=== PATIENT | female | born 1970 | race Caucasian/White ===

== ENCOUNTER 2020-12-05 09:13 | Emergency (ER) | payer SELFPAY ==
[2020-12-05 09:16] VITALS: BP 161/89; PULSE 71; RESP 16; TEMP 36.6; O2SAT 97; BMI 28.1
--- NOTE | 2020-12-05 09:39 | ED.SKABFB ---
HPI - Skin/Abscess/Foreign Bdy General Chief complaint: Skin/Abscess/Foreign Body Stated complaint: sonia on both legs Time Seen by Provider: 12/05/20 09:31 Source: patient Mode of arrival: ambulatory History of Present Illness HPI narrative: 50-year-old female with a past medical history of psoriasis presenting to the ED complaining of psoriasis flare to bilateral lower extremities. Reports has been dealing with this for greater than 3 years, now running into insurance issue with medications due to going through a break-up, previously on Tacrolimus intermittently, and using OTC corticosteroids with some relief. Reports intermittent pusing/drainage from wounds, none at present. Denies fever, chills, pus drainage now, injury MD complaint: rash Related Data Previous Rx's Medication Instructions Recorded prednisone See Rx Instructions .ROUTE 12/05/20 .COMPLEX #36 tab triamcinolone acetonide 1 appl TOPICAL BID #80 g 12/05/20 Allergies Allergy/AdvReac Type Severity Reaction Status Date / Time quetiapine [From SEROQUEL] Allergy Severe ANAPHYLAXIS Unverified 06/22/20 14:52 Review of Systems Review of Systems: Constitutional: No Fever, No Chills Musculoskeletal: No joint pain, No Joint Swelling Skin: + Skin Lesions, +rash Yes all other systems are reviewed and are negative [facility] Past Medical History Attestation statement: The following information was validated with the patient. Social History Social History Alcohol intake: current Alcohol intake frequency: a few times a week Smoking Status: Never smoker Use of substances other than those prescribed or required for medical reasons: No Advance Directives: No Advance Directives Information Provided: No Physical Exam Vital Signs: Vital Signs: Last Vital Signs Temp 97.9 F 12/05/20 09:16 Pulse 71 12/05/20 09:16 Resp 16 12/05/20 09:16 BP 161/89 H 12/05/20 09:16 Pulse Ox 97 12/05/20 09:16 Body Mass Index 28.1 Const: General: cooperative, healthy appearing, comfortable and no acute distress Orientation/consciousness: patient oriented x3 Limitations: no limitations HENMT: Head: Yes normal to inspection Ears: hearing grossly normal bilaterally General nose exam: Normal external nose present Face and sinus: Yes normal facial exam Eyes: General: appearance normal, both eyes and all related structures EOM: EOMs intact bilaterally Neck: Neck: Yes normal visual inspection Resp: Effort & Inspection: normal respiratory effort Cardio: Rate: regular rate Skin: Other: + plaque-like rash noted to bilateral lower extremities with open picked wounds. No surrounding cellulitis. No fluctuance/induration. No streaking. Neuro: General: patient oriented x3 Gait exam (Neuro): Normal gait present Extrem: General: Yes normal to inspection MDM - Skin/Abscess/Foreign Bdy Medical Records Attestation: I reviewed the patient's medical records. Discharge Plan Discharge Clinical Impression: Psoriasis Patient Disposition: Home, Self-Care Instructions: Psoriasis (ED) Additional Instructions: Avoid scratching her psoriasis. Triamcinolone is a topical steroid, apply to your psoriasis, do not apply tear face, hands, feet, or genital area as may discolor skin. Prednisone as an oral steroid, take as prescribed. In addition use lotions to keep area moist. Follow up with a institutional nutrition consultant. If area begins to look infected, has pus drainage, or you fever return to the ED. Prescriptions: New triamcinolone acetonide 0.025 % ointment 1 appl topical BID Qty: 80 RF: 0 prednisone 5 mg tablet See Rx Instructions .ROUTE .COMPLEX Qty: 36 RF: 0 Referrals: Pam Acharya PA [Physician Decorative Engraver Apprentice] - 2 days Kevin Weems MD [Physician] - 2 days Cole Taylor MD [Physician] - 2 days Stand Alone Forms: Work/School Release
== END 2020-12-05 11:01 | disposition home or self-care (01) ==
PROVIDERS: Emergency Provider Emergency Medicine; PCP Internal Medicine
DX: L40.9 Psoriasis, unspecified (principal)
CPT/HCPCS: 99283; 99284

== ENCOUNTER 2022-11-25 20:24 | Emergency (ER) | payer OTHER, MEDICAID, SELFPAY ==
--- NOTE | ~2022-11-25 | CT_ITS ---
EXAMINATION: CT HEAD WITHOUT CONTRAST CT CERVICAL SPINE WITHOUT CONTRAST CLINICAL INFORMATION: Occipital headache. Fall. Neck pain. COMPARISON: None. TECHNIQUE: Imaging was performed from the skull base to vertex without intravenous administration of contrast. In addition, helical noncontrast CT imaging was acquired through the cervical spine and source images were reviewed along with axial reconstructions and sagittal and coronal MPRs. [This CT examination was performed using dose optimization techniques as appropriate, variously including the following: *Automated exposure control *Adjustment of mA and/or kV according to patient size (this includes techniques or standardized protocols for targeted exams where dose is matched to indication/reason for exam; i.e. extremities or head) *Use of iterative reconstruction technique] DLP: 937 mGy-cm FINDINGS: HEAD: No intracranial mass, hemorrhage, or midline shift is visualized. The ventricles and sulci are proportional. No extra-axial collections are identified. The paranasal sinuses and mastoid air cells are well aerated. CERVICAL SPINE: There is no evidence of acute cervical spine fracture. Vertebral bodies remain normal in height. Cervical vertebrae have normal alignment. Cervical disc heights are normal. The facet joints are normal. No pre- or paravertebral soft tissue abnormality is identified. Limited assessment of the lung apices is unremarkable. CT/CT head/brain wo IV con IMPRESSION: 1. No acute intracranial pathology. 2. No CT evidence of acute cervical spine fracture or traumatic subluxation
--- NOTE | ~2022-11-25 | CT_ITS ---
EXAMINATION: CT HEAD WITHOUT CONTRAST CT CERVICAL SPINE WITHOUT CONTRAST CLINICAL INFORMATION: Occipital headache. Fall. Neck pain. COMPARISON: None. TECHNIQUE: Imaging was performed from the skull base to vertex without intravenous administration of contrast. In addition, helical noncontrast CT imaging was acquired through the cervical spine and source images were reviewed along with axial reconstructions and sagittal and coronal MPRs. [This CT examination was performed using dose optimization techniques as appropriate, variously including the following: *Automated exposure control *Adjustment of mA and/or kV according to patient size (this includes techniques or standardized protocols for targeted exams where dose is matched to indication/reason for exam; i.e. extremities or head) *Use of iterative reconstruction technique] DLP: 937 mGy-cm FINDINGS: HEAD: No intracranial mass, hemorrhage, or midline shift is visualized. The ventricles and sulci are proportional. No extra-axial collections are identified. The paranasal sinuses and mastoid air cells are well aerated. CERVICAL SPINE: There is no evidence of acute cervical spine fracture. Vertebral bodies remain normal in height. Cervical vertebrae have normal alignment. Cervical disc heights are normal. The facet joints are normal. No pre- or paravertebral soft tissue abnormality is identified. Limited assessment of the lung apices is unremarkable. CT/CT cervical spine wo IV con IMPRESSION: 1. No acute intracranial pathology. 2. No CT evidence of acute cervical spine fracture or traumatic subluxation
--- NOTE | 2022-11-25 20:43 | ED.FALL ---
HPI - Fall General Chief Complaint: Fall <DASH Piedra - Last Filed: 11/25/22 20:49> Stated Complaint: fell/ head neck back trauma <DASH Piedra - Last Filed: 11/25/22 20:49> Time Seen by Provider: 11/25/22 22:06 <DASH Piedra - Last Filed: 11/25/22 20:49> Source: patient <Dior Duran MD - Last Filed: 11/25/22 22:45> Mode of arrival: ambulatory <Dior Duran MD - Last Filed: 11/25/22 22:45> Limitations: no limitations <Dior Duran MD - Last Filed: 11/25/22 22:45> History of Present Illness HPI Narrative: 52-year-old female came in for evaluation of head injury. Patient was taking shower slipped and fell backward hitting her head, causing small laceration to the scalp and mild bleeding 2 days ago, patient did not seek medical attention then, patient came in today for evaluation of feeling dizzy and blurry vision with headache, soreness at the laceration side of the occipital area, complaining of neck pain, no weakness or numbness. <Dior Duran MD - Last Filed: 11/25/22 22:45> Related Data Home Medications: Previous Rx's Medication Instructions Recorded prednisone 5 mg tablet See Rx Instructions PO .COMPLEX 12/05/20 #36 tabs triamcinolone acetonide 0.025 % 1 appl topical BID #80 grams 12/05/20 topical ointment <DASH iPedra - Last Filed: 11/25/22 20:49> Allergies/Adverse Reactions: Allergies Allergy/AdvReac Type Severity Reaction Status Date / Time quetiapine [From SEROQUEL] Allergy Severe ANAPHYLAXIS Verified 11/25/22 20:49 <DASH Piedra - Last Filed: 11/25/22 20:49> Review of Systems Review of Systems: All other systems are reviewed and are negative Constitutional: Reports as per HPI and Reports no additional constitutional complaints Eyes: Reports as per HPI and Reports no additional eye complaints Reports system reviewed and no additional complaints, except as documented Cardiovascular: Reports as per HPI and Reports no additional cardiovascular complaints Respiratory: Reports as per HPI and Reports no additional respiratory complaints Gastrointestinal: Reports as per HPI and Reports no additional gastrointestinal complaints Genitourinary: Reports no additional female genitourinary complaints Musculoskeletal: Reports no additional musculoskeletal complaints Skin/Breast: Reports system reviewed and no additional complaints, except as docu Psychiatric: Reports no additional psychiatric complaints Endocrine: Reports no additional endocrine complaints Hematologic/Lymphatic: Reports no additional hematologic/lymphatic complaints Allergic/Immunologic: Reports no additional allergic/immunologic complaints Reports system reviewed and no additional complaints, except as documented and Reports Abnormal speech present <Dior Duran MD - Last Filed: 11/25/22 22:45> [facility] Social History Social History: Social History Alcohol intake: current Alcohol intake frequency: a few times a week Advance Directives: No Advance Directives Information Provided: Yes <DASH Piedra - Last Filed: 11/25/22 20:49> Physical Exam Vital Signs: Vital Signs: Last Vital Signs Temp 98.0 F 11/25/22 20:44 Pulse 70 11/25/22 20:44 Resp 16 11/25/22 20:44 BP 157/71 H 11/25/22 20:44 Pulse Ox 99 11/25/22 20:44 O2 Del Method 11/25/22 20:44 BMI result Body Mass Index 28.7 <DASH Piedra - Last Filed: 11/25/22 20:49> Vital Signs: Last Vital Signs Temp 98.0 F 11/25/22 20:44 Pulse 70 11/25/22 20:44 Resp 16 11/25/22 20:44 BP 157/71 H 11/25/22 20:44 Pulse Ox 99 11/25/22 20:44 O2 Del Method 11/25/22 20:44 BMI result Body Mass Index 28.7 Vital signs have been reviewed as appeared to be correct. Blood pressure normal. Heart rate normal. Respiration rate normal. Temperature normal. Oxygen saturation normal. <Dior Duran MD - Last Filed: 11/25/22 22:45> Appearance: Alert. Oriented X3. No acute distress. Head: Normal external exam. Normocephalic. Atraumatic. No Suresh signs noted. No raccoon eyes noted, healing old scar on the occipital area of the scalp. No active bleeding. Eyes: PERRLA. EOMI. Conjunctiva and sclera normal. Eyelids normal. ENT: TM's Normal. Pharynx normal. Uvula midline. Moist mucous membranes. No trismus noted. No drooling noted. No muffled voice noted. Neck: Normal inspection. Neck supple. FROM. No adenopathy. Thyroid Normal. No meningeal signs. No neck mass noted. CVS: Normal heart rate and rhythm. Heart sound normal. No murmurs noted. Pulses normal throughout. Respiratory: No respiratory distress. Painless inspiration. Breath sounds normal. No wheezes/rales/rhonchi noted. Chest nontender. No accessory muscle usage noted or decreased air movement noted. Abdomen: Soft and nontender. Bowel sounds normal in all 4 quadrants. No distention noted. No organomegaly noted. No visible injury noted. Back: No CVA tenderness. Full range of motion noted. Skin: Skin warm and dry. Normal skin color. Normal skin turgor. No rashes/lesions/lacerations noted. Extremities: No lower extremity edema. Extremities exhibit normal range of motion. Extremities nontender. Neuro: Oriented X 3. GCS of 15 Cranial nerve exam: II-XII are grossly intact No motor deficit. No sensory deficit. Reflexes normal. <Dior Duran MD - Last Filed: 11/25/22 22:45> Course Course Course Narrative: RME - 52 yo female with hx kidney stones, PTSD w/ disassociation who presents to the ER for evaluation of dizziness and a fall that occurred 2 days ago. States she cracked her head open, had some bleeding. Was not seen at the time. Has ongoing dizziness, blurred vision and occipital headache along with neck pain. Reports 4-5 falls in the last 6 months. Has been dizzy for one month, worse in the last 1 week. Also memory lapses - not remembering what side of the road to drive on, where she parked her car. Steady gait into triage. Small lac on the occipital area with some swelling. midline neck tenderness. Will get CT head and cervical spine along w/ basic labs for further evaluation. <DASH Piedra - Last Filed: 11/25/22 20:49> Reevaluation(s) Reevaluation #1: 52-year-old female status post mechanical fall 2 days ago causing head concussion patient presented with post concussion syndrome, normal neuro exam, GCS of 15, CT scan is normal, cervical CT is unremarkable for fracture. <Dior Duran MD - Last Filed: 11/25/22 22:45> Medical Decision Making Differential Diagnosis Differential Diagnoses: The differential diagnosis associated with the presentation includes (Intracranial bleeding, postconcussion syndrome, cervical spine injury, neurological deficit.) <Dior Duran MD - Last Filed: 11/25/22 22:45> Lab Data Result Diagrams: 11/25/22 22:25 11/25/22 22:25 <DASH Piedra - Last Filed: 11/25/22 20:49> Independent Interpretation I performed an independent interpretation of an: CT Scan (Head/C-spine CT: No acute pathology.) <Dior Duran MD - Last Filed: 11/25/22 22:45> Radiology Impression Discussion of test interpretation with radiology: I have reviewed the radiologist's reading. <Dior Duran MD - Last Filed: 11/25/22 22:45> Discharge Plan Discharge Clinical Impression: Post-concussion syndrome <DASH Piedra - Last Filed: 11/25/22 20:49> Patient Disposition: Home, Self-Care <DASH Piedra - Last Filed: 11/25/22 20:49> Instructions: Post Concussion Syndrome (ED) <DASH Piedra - Last Filed: 11/25/22 20:49> Additional Instructions: Avoid long time using computer, TV, and phones. Tried sleep early in the quiet dark room. Use Tylenol [id number] for mild headache. Drink plenty of fluids. <DASH Piedra - Last Filed: 11/25/22 20:49> Prescriptions: No Action triamcinolone acetonide 0.025 % ointment 1 appl topical BID Qty: 80 0RF prednisone 5 mg tablet See Rx Instructions .ROUTE .COMPLEX Qty: 36 0RF Rx Instructions: prednisone 5 mg: take 8 tablets (40 mg) on Day 1; 7 tablets (35 mg) on Day 2; then decrease by 1 tablet every day until finished <DASH Piedra - Last Filed: 11/25/22 20:49> Stand Alone Forms: Work/School Release <DASH Piedra - Last Filed: 11/25/22 20:49>
[2022-11-25 20:44] VITALS: BP 157/71; PULSE 70; RESP 16; TEMP 36.7; O2SAT 99; BMI 28.7
[2022-11-25 22:36] LABS: MANUAL DIFF FLAG NO
[2022-11-25 22:38] LABS: Basophils Percent Auto 0.3 % (0-2); Eosinophils Absolute Auto 0.1 X10*3/uL (0.0-0.4); Eosinophils Percent Auto 1.9 % (0-4); Hemoglobin 11.7 g/dl (12.0-16.0); Imm Gran Abs Auto 0.02 X10*3/uL (0.00-0.03); Imm Gran Pct Auto 0.3 % (0.0-0.4); Lymphocytes Absolute Auto 2.3 X10*3/uL (1.2-4.9); Lymphocytes Percent Auto 35.7 % (20-40); Mean Corpuscular HGB Conc 33.4 g/dl (31.0-35.0); Mean Corpuscular Hemoglobin 30.1 pg (27.0-33.0); Monocytes Absolute Auto 0.7 X10*3/uL (0.1-1.2); Monocytes Percent Auto 10.8 % (2-11); Neutrophils Absolute Auto 3.3 x10*3/uL (2.0-8.3); Platelet Count 210 X10*3/uL (160-400); Red Blood Count 3.89 X10*6/uL (4.20-5.50); Red Cell Distribution Width 12.8 % (11.0-16.0); White Blood Count 6.4 X10*3/uL (4.8-10.8)
--- OUTSIDE RECORDS SUMMARY | 2022-11-25 22:43 | XMS_ITS | Continuity of Care Document ---
:1970 Author Organization [facility] Adult Address [address] [place] [address]- Care Team Providers Name Role Phone Nini Charlene ALEXANDRE Primary Care Physician Encounter [facility] [place] Date(s): 12/07/21 - 01/11/22 [facility] [address] [place] [address]- Attending Physician: Not on Staff, Attending MD Allergies, Adverse Reactions, Alerts Substance Reaction Severity Status Seroquel Active Immunizations Given and Recorded Vaccine Date Status Refusal Reason SARS-CoV-2 (COVID-19) mRNA BNT-162b2 vac 12/17/20 Recorde d SARS-CoV-2 (COVID-19) mRNA BNT-162b2 vac 11/21/20 Recorde d influenza virus vaccine, inactivated 07/06/18 Recorded influenza virus vaccine, inactivated 07/21/17 Recorded influenza virus vaccine, inactivated 07/13/15 Recorded influenza virus vaccine, inactivated1 07/06/13 Recorded influenza virus vaccine, inactivated2 06/29/10 Given tetanus-diphtheria toxoids (Td) 05/11/18 Given Influenza Virus Vaccine (oldterm)3 07/06/16 Given Influenza Virus Vaccine (oldterm)4 06/21/09 Given Measles/Mumps/Rubella Virus Vaccine 10/07/13 Given Measles/Mumps/Rubella Virus Vaccine 09/17/10 Given FluLaval (oldterm)5 05/19/12 Given FluLaval (oldterm) 06/29/10 Given Tet/Diphth/Acel, Pertussis (oldterm) 03/18/08 Given Tetanus Toxoid Vaccine (oldterm) 10/06/97 Given Not Given Vaccine Date Status Refusal Reason influenza virus vaccine, inactivated 07/05/18 Not Given Patient Refuses pneumococcal 23-valent vaccine 07/05/18 Not Given P atient Refuses 1Location History: [facility]2Result Comment: [id number] Note: got at [id number] Note: [id number] Note: [facility]. employer Medications Benadryl Tablet = 25 mg, By Mouth, Daily at bedtime, 0 Refills, Maintenance, 06/16/15 15:31:35 Start Date: 06/16/15 Status: Ordereddoxepin 10 mg oral capsule 0 Refills, Maintenance, 12/23/21 21:05:00 EDT, Partial fill upon patient request if the prescriptionis for a schedule II opioid drug. Start Date: 12/23/21 Status: Orderedvenlafaxine 150 mg oral capsule, extended release 1 capsule, By Mouth, Daily, # 90 capsule, 0 Refills, 10/11/21 21:26:00 EST, [id number], 160,cm, 07/10/21 8:55:00 EDT, Height, 72.8, kg, 03/13/21 17:00:00 EDT, Dry Weight Start Date: 10/11/21 Status: Ordered Problem List Condition Effective Dates Status Health Status Informant Alcohol abuse(Confirmed) Active Bilateral carpal tunnel Active syndrome(Confirmed)1 Chronic constipation(Confirmed) Active Chronic dermatitis(Confirmed) Active Chronic rhinitis(Confirmed) Active Bilateral ovarian cysts(Confirmed) Active H/O syncope(Confirmed)2, 3 Active H/O dizziness(Confirmed) Active Insomnia(Confirmed) Active Depression, major(Confirmed)4, 5, 6, Active 7, 8 Nephrolithiasis(Confirmed)9 Active Lower extremity pain(Confirmed) Active Patent foramen ovale(Confirmed) Active cortisone pwywhbsap7dkkezzxo tilt table, fludrocortisone started per eprjshayqf1ztuw coital; referred cardiologly for tilt table,other investigations if [id number];115in therapy;not bipolar per vzzxmpicp9doglcpsg mood ftlcdfvmbsgmqu5mcia disorders questionnare;8seeing mental lpsxud3mlyfybsjppg,Dr carmona Social History Social History Type Response Smoking Status Never smoker entered on: 10/07/13 Sex
--- OUTSIDE RECORDS SUMMARY | 2022-11-25 22:43 | XMS_ITS | Continuity of Care Document ---
:1970 Author Organization [facility] Adult Address [address] [place] [address]- Care Team Providers Name Role Phone Prudencio MEEK, Raimundo Montes Primary Care Physician [place]counter [facility] [place] Date(s): 05/08/20 - 06/07/20 [facility] [address] [place] [address]- [facility] Allergies, Adverse Reactions, Alerts Substance Reaction Severity Status Seroquel Active Immunizations Given and Recorded Vaccine Date Status Refusal Reason influenza virus vaccine, inactivated 07/06/18 Recorded influenza [...] Not Given P atient Refuses 1Location History: [facility]2Result Comment: [id number] Note: got at [id number] Note: [id number] Note: [facility] Medications Benadryl Tablet = 25 mg, By Mouth, Daily at bedtime, 0 Refills, Maintenance, 06/16/15 15:31:35 Start Date: 06/16/15 Status: Orderedbetamethasone topical dipropionate 0.05% ointment 1 application, Topically, 2 times a day, # 45 Gm, 1 Refills, Maintenance, 03/16/20 9:06:00 EDT, Ointment, [facility]/pharmacy #[id number], 1 application Topically 2 times a day, 160, cm, 03/09/20 12:35:00 EDT, Height, 65.9, kg, 07/04/18 1:15:00 EDT, Dry Weight Start Date: 03/16/20 Status: OrderedFlonase 50 mcg/inh nasal spray 2 sprays, Nares, Both, Daily, # 1 each, 11 Refills, Maintenance, 11/28/15 10:07:00, [place], 2 sprays Nares, Both Daily,x30 days Start Date: 11/28/15 Stop Date: 11/22/16 Status: Orderedgabapentin 100 mg oral capsule 200 mg, 2, capsule, By Mouth, 3 times a day, # 180 capsule, Refills 1, Tot. Refills 1, Maintenance, 08/24/19 10:30:07 EST, Route to Pharmacy Electronically, [id number], [facility]/pharmacy #[id number] Start Date: 08/24/19 Status: Orderedprazosin 1 mg oral capsule 1 mg, 1, capsule, By Mouth, Daily at bedtime, # 90 capsule, Refills 0, Tot. Refills 0, Maintenance, 02/15/20 7:19:00 EDT, Route to Pharmacy Electronically, [facility]/pharmacy #[id number], 160, cm, 07/15/19 10:05:00 EDT, Height, 65.9, kg, 07/04/18 1:15:00 EDT, Dry... Start Date: 02/15/20 Status: Orderedtacrolimus 0.1% topical ointment 1 applicator, Topically, 2 times a day, apply sparingly and rub in well, # 30 Gm, 0 Refills, Maintenance, 06/07/20 10:22:00 EDT, Ointment, [facility]/pharmacy #[id number], 1 applicator Topically 2 times a day,Instr:apply sparingly and rub in well, 160, cm, ... Start Date: 06/07/20 Status: Orderedvenlafaxine 150 mg oral capsule, extended release 150 mg, 1, capsule, By Mouth, Daily, # 30 capsule, Refills 1, Tot. Refills 1, Maintenance, 06/06/20 15:13:00 EDT, Route to Pharmacy Electronically, [facility]/pharmacy #[id number], 160, cm, 03/09/20 12:35:00 EDT, Height, 65.9, kg, 07/04/18 1:15:00 EDT, Dry Weight Start Date: 06/06/20 Status: Ordered Problem List Condition Effective Dates Status Health Status Informant Abdominal pain(Confirmed) Active Bilateral carpal tunnel Active syndrome(Confirmed)1 Chronic constipation(Confirmed) Active Chronic rhinitis(Confirmed) Active Bilateral ovarian cysts(Confirmed) Active Acid reflux(Confirmed) Active H/O syncope(Confirmed)2, 3 Active H/O dizziness(Confirmed) Active H/O alcohol abuse(Confirmed) Active Insomnia(Confirmed) Active Nephrolithiasis(Confirmed)4 Active Lower extremity pain(Confirmed) Active Patent foramen ovale(Confirmed) Active cortisone uymqlckhh8qvrkypjj tilt table, fludrocortisone started per hhvdlsndll2xwnk coital; referred cardiologly for tilt table,other investigations if bdatup7lautcdzkizx,Dr carmona Social History Social History Type Response Smoking Status Never smoker entered on: 10/07/13 Sex
--- OUTSIDE RECORDS SUMMARY | 2022-11-25 22:43 | XMS_ITS | Continuity of Care Document ---
:1970 Author Organization [facility] Adult Address [address] [place] [address]- Care Team Providers Name Role Phone Charlene Terrazas NP Primary Care Physician Encounter [facility] [place] Date(s): 12/24/21 - 12/31/21 [facility] [address] [place] [address]- Encounter Diagnosis Alcohol abuse (Discharge Diagnosis) - 12/24/21 Depression, major (Discharge Diagnosis) - 12/24/21 Shortness of breath (Discharge Diagnosis) - 12/24/21 Attending Physician: Not on Staff, Attending MD Referring Physician: Charlene Terrazas NP Allergies, Adverse Reactions, Alerts Substance Reaction Severity [...] Not Given P atient Refuses 1Location History: [facility]2Result Comment: [id number] Note: got at [id number] Note: [id number] Note: [facility]. employer Medications Benadryl Tablet = 25 [...] pain(Confirmed) Active Patent foramen ovale(Confirmed) Active cortisone afczsvjot0lwjiwhdf tilt table, fludrocortisone started per ppxphuywgz5iyuf coital; referred cardiologly for tilt table,other investigations if [id number];115in therapy;not bipolar per koapvhjic7bbtscxwz mood blutguxndjrpsg6mfpm disorders questionnare;8seeing mental vjcmze7tjitaeriztm,Dr carmona Diagnosis Diagnosis Type Effective Dates Health Status Clinical In formant Service Alcohol abuse Discharge 12/24/21 Diagnosis Depression, Discharge 12/24/21 major Diagnosis Shortness of Discharge 12/24/21 breath Diagnosis Social History Social History Type Response Smoking Status Never smoker entered on: 10/07/13 Sex
--- OUTSIDE RECORDS SUMMARY | 2022-11-25 22:43 | XMS_ITS | Continuity of Care Document ---
:[address] [facility] Adult Address [address] [place] [address]- Care Team Providers Name Role Phone Prudencio MEEK, Raimundo Montes Primary Care Physician Encounter [facility] Date(s): 07/05/20 - 08/04/20 [facility] [address] [place] [address]- [facility] Allergies, Adverse Reactions, Alerts Substance Reaction [...] Not Given P atient Refuses 1Location History: [facility]2Result Comment: [id number] Note: got at [id number] Note: [id number] Note: [facility] Medications Benadryl Tablet = 25 mg, By Mouth, Daily at bedtime, 0 Refills, Maintenance, 06/16/15 15:31:35 Start Date: 06/16/15 Status: Orderedbetamethasone topical dipropionate 0.05% ointment 1 application, Topically, 2 times a day, # 45 Gm, 1 Refills, Maintenance, 03/16/20 9:06:00 EDT, Ointment, [facility]/pharmacy #[id number], 1 application Topically 2 times a day, 160, cm, 03/09/20 12:35:00 EDT, Height, 65.9, kg, 07/04/18 1:15:00 EDT, Dry Weight Start Date: 03/16/20 Status: OrderedFlonase 50 mcg/inh nasal spray 2 sprays, Nares, Both, Daily, # 1 each, 11 Refills, Maintenance, 11/28/15 10:07:00, [place], 2 sprays Nares, Both Daily,x30 days Start Date: 11/28/15 Stop Date: 11/22/16 Status: Orderedgabapentin 100 mg oral capsule 200 mg, 2, capsule, By Mouth, 3 times a day, # 180 capsule, Refills 1, Tot. Refills 1, Maintenance, 08/24/19 10:30:07 EST, Route to Pharmacy Electronically, [id number], [facility]/pharmacy #[id number] Start Date: 08/24/19 Status: Orderedprazosin 1 mg oral capsule 1 mg, 1, capsule, By Mouth, Daily at bedtime, # 90 capsule, Refills 0, Tot. Refills 0, Maintenance, 02/15/20 7:19:00 EDT, Route to Pharmacy Electronically, [facility]/pharmacy #[id number], 160, cm, 07/15/19 10:05:00 EDT, Height, 65.9, kg, 07/04/18 1:15:00 EDT, Dry... Start Date: 02/15/20 Status: Orderedtacrolimus 0.1% topical ointment 1 application, Topically, 2 times a day, INSTR:APPLY SPARINGLY AND RUB IN WELL, # 30 Gm, 0 Refills, Acute, 07/28/20 13:08:00 EDT, [facility] STORE [id number], 30, 1 APPLICATOR TOPICALLY 2 TIMES A DAY,INSTR:APPLY SPARINGLY AND RUB IN WELL, 160, cm, 03/09/20 12:35:... Start Date: 07/28/20 Status: Orderedvenlafaxine 150 mg oral capsule, extended release 150 mg, 1, capsule, By Mouth, Daily, # 30 capsule, Refills 5, Tot. Refills 5, Maintenance, 07/05/20 12:49:00 EDT, Route to Pharmacy Electronically, [facility]/pharmacy #[id number], 160, cm, 03/09/20 12:35:00 EDT, Height, Dry Weight Start Date: 07/05/20 Status: Ordered Problem List Condition Effective Dates Status Health Status Informant Abdominal pain(Confirmed) Active Bilateral carpal tunnel Active syndrome(Confirmed)1 Chronic constipation(Confirmed) Active Chronic rhinitis(Confirmed) Active Bilateral ovarian cysts(Confirmed) Active Acid reflux(Confirmed) Active H/O syncope(Confirmed)2, 3 Active H/O dizziness(Confirmed) Active H/O alcohol abuse(Confirmed) Active Insomnia(Confirmed) Active Nephrolithiasis(Confirmed)4 Active Lower extremity pain(Confirmed) Active Patent foramen ovale(Confirmed) Active cortisone pvgoxzmjj5ybyequgt tilt table, fludrocortisone started per txxmbdlivm9nsjw coital; referred cardiologly for tilt table,other investigations if iimpjr1brmjafkgxws,Dr swanson Social History Social History Type Response Smoking Status Never smoker entered on: 10/07/13 Sex
--- OUTSIDE RECORDS SUMMARY | 2022-11-25 22:43 | XMS_ITS | Continuity of Care Document ---
:1970 Author Organization [facility] Adult Address [address] [place] [address]- Care Team Providers Name Role Phone Prudencio MEEK, Raimundo Montes Primary Care Physician [place] [facility] [place]20 [facility] Adult [address] [place] [address]- Allergies, Adverse Reactions, Alerts Substance Reaction Severity [...] Not Given P atient Refuses 1Location [place]: [place] [id number] Comment: [id number] Note: got at coua3Gugwa Note: [id number] Note: [facility]. employer Medications Benadryl Tablet = 25 mg, By Mouth, Daily at bedtime, 0 Refills, Maintenance, 06/16/15 15:31:35 Start Date: 06/16/15 Status: Orderedbetamethasone topical dipropionate 0.05% ointment 1 application, Topically, 2 times a day, # 45 Gm, 1 Refills, Maintenance, 03/16/20 9:06:00 EDT, Ointment, [facility]/pharmacy #[id number], 1 application Topically 2 times a day, 160, cm, 03/09/20 12:35:00 EDT, Height, 65.9, kg, 07/04/18 1:15:00 EDT, Dry Weight Start Date: 03/16/20 Status: OrderedFlonase 50 mcg/inh nasal spray 2 sprays, Nares, Both, Daily, # 1 each, 11 Refills, Maintenance, 11/28/15 10:07:00, [place], 2 sprays Nares, Both Daily,x30 days Start Date: 11/28/15 Stop Date: 11/22/16 Status: Orderedgabapentin 100 mg oral capsule 200 mg, 2, capsule, By Mouth, 3 times a day, # 180 capsule, Refills 1, Tot. Refills 1, Maintenance, 08/24/19 10:30:07 EST, Route to Pharmacy Electronically, [id number], [facility]/pharmacy #[id number] Start Date: 08/24/19 Status: Orderedprazosin 1 mg oral capsule 1 mg, 1, capsule, By Mouth, Daily at bedtime, # 90 capsule, Refills 0, Tot. Refills 0, Maintenance, 02/15/20 7:19:00 EDT, Route to Pharmacy Electronically, [facility]/pharmacy #[id number], 160, cm, 07/15/19 10:05:00 EDT, Height, 65.9, kg, 07/04/18 1:15:00 EDT, Dry... Start Date: 02/15/20 Status: Orderedtacrolimus 0.1% topical ointment 1 application, Topically, 2 times a day, INSTR:APPLY SPARINGLY AND RUB IN WELL, # 30 Gm, 1 Refills, Maintenance, 11/20/20 15:31:00 EST, [facility]/pharmacy #[id number], 30, 1 application Topically 2 times a day,Instr:INSTR:APPLY SPARINGLY AND RUB IN WELL, 160, cm,... Start Date: 11/20/20 Status: Orderedvenlafaxine 150 mg oral capsule, extended release 150 mg, 1, capsule, By Mouth, Daily, # 30 capsule, Refills 5, Tot. Refills 5, Maintenance, 07/05/20 12:49:00 EDT, Route to Pharmacy Electronically, [facility]/pharmacy #[id number], 160, cm, 03/09/20 12:35:00 EDT, Height, Dry Weight Start Date: 07/05/20 Status: Ordered Problem List Condition Effective Dates Status Health Status Informant Abdominal pain(Confirmed) Active Bilateral carpal tunnel Active syndrome(Confirmed)1 Chronic constipation(Confirmed) Active Chronic rhinitis(Confirmed) Active Bilateral ovarian cysts(Confirmed) Active H/O syncope(Confirmed)2, 3 Active H/O dizziness(Confirmed) Active H/O alcohol abuse(Confirmed) Active Insomnia(Confirmed) Active Depression, major(Confirmed)4, 5, 6, Active 7, 8 Nephrolithiasis(Confirmed)9 Active Lower extremity pain(Confirmed) Active Patent foramen ovale(Confirmed) Active cortisone hodkypdns7qpcrcvbu tilt table, fludrocortisone started per crrazkvity2lhfh coital; referred cardiologly for tilt table,other investigations if [id number];115in therapy;not bipolar per ddwdwgvbb2bostjqyl mood hwtytqrlbpkqyh2fdkx disorders questionnare;8seeing mental vaewii9zqcwrpnuirp,Dr swanson Social History Social History Type Response Smoking Status Never smoker entered on: 10/07/13 Sex
--- OUTSIDE RECORDS SUMMARY | 2022-11-25 22:43 | XMS_ITS | Continuity of Care Document ---
:1970 Author Organization [facility] Adult Address [address] [place] [address]- Care Team Providers Name Role Phone Nini Charlene ALEXANRDE Primary Care Physician Encounter [facility] [place] Date(s): 06/07/22 - 07/07/22 [facility] Adult [address] [place] [address]- Attending Physician: Admtr, Ar8 Allergies, Adverse Reactions, Alerts Substance Reaction Severity Status Seroquel Active Immunizations Given and Recorded Vaccine Date Status Refusal Reason SARS-CoV-2 (COVID-19) mRNA BNT-162b2 vac 12/17/20 Recorde d SARS-CoV-2 (COVID-19) mRNA BNT-162b2 vac 11/21/20 Recorde d influenza virus vaccine, inactivated 07/27/18 Recorded influenza virus vaccine, inactivated 07/06/18 Recorded influenza virus vaccine, inactivated 07/21/17 Recorded influenza virus vaccine, inactivated 07/16/17 Recorded influenza virus vaccine, inactivated 07/13/15 Recorded [...] Not Given P atient Refuses 1Location History: [facility]2Result Comment: [id number] Note: got at [id number] Note: [id number] Note: [facility]. employer Medications Benadryl Tablet = 25 mg, By Mouth, Daily at bedtime, 0 Refills, Maintenance, 06/16/15 15:31:35 Start Date: 06/16/15 Status: Orderedomeprazole 20 mg oral delayed release tablet 1 tablet = 20 mg, By Mouth, Daily, # 90 tablet, 1 Refills, Maintenance, 06/07/22 11:09:00 EDT, [facility][id number], 160, cm, 06/07/22 10:58:00 EDT, Height, 72.8, kg, 03/13/21 17:00:00 EDT, Dry Weight Start Date: 06/07/22 Status: Ordered Problem List Condition Confirmation Course Effective Dates Status Health Stat us Informant Alcohol abuse Confirmed Active Bilateral carpal Confirmed Active tunnel syndrome1 Chronic Confirmed Active constipation Chronic dermatitis Confirmed Active Chronic rhinitis Confirmed Active Bilateral ovarian Confirmed Active cysts Generalized anxiety Confirmed Active disorder H/O syncope2, 3 Confirmed Active H/O dizziness Confirmed Active Insomnia Confirmed Active Depression, major4, Confirmed Active 5, 6, 7, 8 Nephrolithiasis9 Confirmed Active Lower extremity Confirmed Active pain Patent foramen Confirmed Active ovale cortisone khegvkury0wnskombh tilt table, fludrocortisone started per rmtiyalaaw2wyaj coital; referred cardiologly for tilt table,other investigations if awweeh0VGG2;115in therapy;not bipolar per jdbwrusib9tktxuvmk mood pmkrlauzypriev0cubk disorders questionnare;8seeing mental nrwecu8ifgdxeqyarp,Dr swanson Procedures Procedure Date Related Diagnosis Body Site Status Computed tomography, abdomen and 11/06/12 Completed pelvis; without contrast material1 Computed tomography, abdomen; with 09/25/10 Completed contrast material(s)2 Duplex scan of extremity veins 11/29/09 Completed including responses to compression and other maneuvers; complete bilateral study3 Echocardiogram4 04/16/08 Completed 1nonobstruting bilateral renal calculi,no hbwkprrnjojeon28 mm obstructing renal ston e,mild hydronephrosis, bilateral hnbuelx7oqua lowertr EXt no DVT or dbzs9gw 55%, PFO not well demonstarted Social History Social History Type Response Smoking Status Never smoker entered on: 10/07/13 Sex Patient Care team information PersonnelName: Charlene Terrazas NP Address: Address: [address] [place] [address]
--- OUTSIDE RECORDS SUMMARY | 2022-11-25 22:43 | XMS_ITS | Continuity of Care Document ---
:1970 Author Organization [facility] Adult Address [address] [place] [address]- Care Team Providers Name Role Phone Prudencio MEEK, Raimundo Montes Primary Care Physician Encounter [facility] [place] Date(s): 04/13/20 - 05/13/20 [facility] Adult [address] [place] [address]- [facility] Allergies, Adverse Reactions, Alerts Substance Reaction Severity [...] Not Given P atient Refuses 1Location History: [facility]2Result Comment: [id number] Note: got at ojyp0Yusie Note: usgguypua9Xugnt Note: [facility] Medications Benadryl Tablet = 25 mg, By Mouth, Daily at bedtime, 0 Refills, Maintenance, 06/16/15 15:31:35 Start Date: 06/16/15 Status: Orderedbetamethasone topical dipropionate 0.05% ointment 1 application, Topically, 2 times a day, # 45 Gm, 1 Refills, Maintenance, 03/16/20 9:06:00 EDT, Ointment, [facility]/pharmacy #[id number], 1 application Topically 2 times a day, 160, cm, 03/09/20 12:35:00 EDT, Height, 65.9, kg, 07/04/18 1:15:00 EDT, Dry Weight Start Date: 03/16/20 Status: OrderedFlonase 50 mcg/inh nasal spray 2 sprays, Nares, Both, Daily, # 1 each, 11 Refills, Maintenance, 11/28/15 10:07:00, [place], 2 sprays Nares, Both Daily,x30 days Start Date: 11/28/15 Stop Date: 11/22/16 Status: Orderedgabapentin 100 mg oral capsule 200 mg, 2, capsule, By Mouth, 3 times a day, # 180 capsule, Refills 1, Tot. Refills 1, Maintenance, 08/24/19 10:30:07 EST, Route to Pharmacy Electronically, [id number], [facility]/pharmacy #[id number] Start Date: 08/24/19 Status: Orderedprazosin 1 mg oral capsule 1 mg, 1, capsule, By Mouth, Daily at bedtime, # 90 capsule, Refills 0, Tot. Refills 0, Maintenance, 02/15/20 7:19:00 EDT, Route to Pharmacy Electronically, [facility]/pharmacy #[id number], 160, cm, 07/15/19 10:05:00 EDT, Height, 65.9, kg, 07/04/18 1:15:00 EDT, Dry... Start Date: 02/15/20 Status: Orderedtacrolimus 0.1% topical ointment 1 application, Topically, 2 times a day, # 30 Gm, 0 Refills, Maintenance, 02/17/19 12:04:43 EDT, Ointment Start Date: 02/17/19 Status: Orderedvenlafaxine 150 mg oral capsule, extended release 150 mg, 1, capsule, By Mouth, Daily, # 30 capsule, Refills 2, Tot. Refills 2, Maintenance, 04/10/20 16:21:00 EDT, Route to Pharmacy Electronically, [facility]/pharmacy #[id number], 160, cm, 03/09/20 12:35:00 EDT, Height, 65.9, kg, 07/04/18 1:15:00 EDT, Dry Weight Start Date: 04/10/20 Status: Ordered Problem List Condition Effective Dates Status Health Status Informant Abdominal pain(Confirmed) Active Bilateral carpal tunnel Active syndrome(Confirmed)1 Chronic constipation(Confirmed) Active Chronic rhinitis(Confirmed) Active Bilateral ovarian cysts(Confirmed) Active Acid reflux(Confirmed) Active H/O syncope(Confirmed)2, 3 Active H/O dizziness(Confirmed) Active H/O alcohol abuse(Confirmed) Active Insomnia(Confirmed) Active Nephrolithiasis(Confirmed)4 Active Lower extremity pain(Confirmed) Active Patent foramen ovale(Confirmed) Active cortisone deblvizhb7hjhjzxvk tilt table, fludrocortisone started per kpmuspvktz0peqs coital; referred cardiologly for tilt table,other investigations if pneoms0ohzhwbhaixe,Dr carmona Social History Social History Type Response Smoking Status Never smoker entered on: 10/07/13 Sex
--- OUTSIDE RECORDS SUMMARY | 2022-11-25 22:43 | XMS_ITS | Continuity of Care Document ---
:1970 Author Organization [facility] Adult Address [address] [place] [address]- Care Team Providers Name Role Phone Prudencio MEEK, Raimundo Montes Primary Care Physician Encounter [facility] [place] Date(s): 07/05/20 - 08/04/20 [facility] Adult [address] [place] [address]- [facility] Allergies, Adverse Reactions, Alerts Substance Reaction [...] Not Given P atient Refuses 1[facility]Result Comment: [id number] Note: got at [id number] Note: [id number] Note: [facility] Medications Benadryl Tablet = 25 mg, By Mouth, Daily at bedtime, 0 Refills, Maintenance, 06/16/15 15:31:35 Start Date: 06/16/15 Status: Orderedbetamethasone topical dipropionate 0.05% ointment 1 application, Topically, 2 times a day, # 45 Gm, 1 Refills, Maintenance, 03/16/20 9:06:00 EDT, Ointment, [facility]/pharmacy #[id number], 1 application Topically 2 times a day, 160, cm, 03/09/20 12:35:00 EDT, Height, 65.9, kg, 07/04/18 1:15:00 EDT, Dry Weight Start Date: 03/16/20 Status: OrderedFlonase 50 mcg/inh nasal spray 2 sprays, Nares, Both, Daily, # 1 each, 11 Refills, Maintenance, 11/28/15 10:07:00, [place], 2 sprays Nares, Both Daily,x30 days Start Date: 11/28/15 Stop Date: 11/22/16 Status: Orderedgabapentin 100 mg oral capsule 200 mg, 2, capsule, By Mouth, 3 times a day, # 180 capsule, Refills 1, Tot. Refills 1, Maintenance, 08/24/19 10:30:07 EST, Route to Pharmacy Electronically, [id number], [facility]/pharmacy #[id number] Start Date: 08/24/19 Status: Orderedprazosin 1 mg oral capsule 1 mg, 1, capsule, By Mouth, Daily at bedtime, # 90 capsule, Refills 0, Tot. Refills 0, Maintenance, 02/15/20 7:19:00 EDT, Route to Pharmacy Electronically, [facility]/pharmacy #[id number], 160, cm, 07/15/19 10:05:00 EDT, Height, 65.9, kg, 07/04/18 1:15:00 EDT, Dry... Start Date: 02/15/20 Status: Orderedtacrolimus 0.1% topical ointment 1 application, Topically, 2 times a day, INSTR:APPLY SPARINGLY AND RUB IN WELL, # 30 Gm, 0 Refills, Acute, 07/28/20 13:08:00 EDT, [facility] STORE [id number], 30, 1 APPLICATOR TOPICALLY 2 TIMES A DAY,INSTR:APPLY SPARINGLY AND RUB IN WELL, 160, cm, 03/09/20 12:35:... Start Date: 07/28/20 Status: Orderedvenlafaxine 150 mg oral capsule, extended release 150 mg, 1, capsule, By Mouth, Daily, # 30 capsule, Refills 5, Tot. Refills 5, Maintenance, 07/05/20 12:49:00 EDT, Route to Pharmacy Electronically, [facility]/pharmacy #[id number], 160, cm, 03/09/20 12:35:00 [...] pain(Confirmed) Active Patent foramen ovale(Confirmed) Active cortisone grornwdrj3bqihnruk tilt table, fludrocortisone started per kjftgppqkv2ruhl coital; referred cardiologly for tilt table,other investigations if bkhoim6jimguuozrvj,Dr swanson Social History Social History Type Response Smoking Status Never smoker entered on: 10/07/13 Sex
--- OUTSIDE RECORDS SUMMARY | 2022-11-25 22:43 | XMS_ITS | Continuity of Care Document ---
:1970 Author Organization [facility] Adult Address [address] [place] [address]- Care Team Providers Name Role Phone Prudencio MEEK, Raimundo Montes Primary Care Physician Encounter [facility] Date(s): 12/25/20 - 01/24/21 [facility] Adult [address] [place] [address]- Attending Physician: Admtr, Ar8 Allergies, Adverse Reactions, [...] Not Given P atient Refuses 1Location History: [facility]2Result Comment: [id number] Note: got at czzr3Olkeu Note: bbxecnufj1Fybui Note: [facility]. employer Medications Benadryl Tablet = 25 mg, By Mouth, Daily at bedtime, 0 Refills, Maintenance, 06/16/15 15:31:35 Start Date: 06/16/15 Status: Orderedbetamethasone topical dipropionate 0.05% ointment 1 application, Topically, 2 times a day, # 45 Gm, 1 Refills, Maintenance, 01/22/21 15:35:00 EDT, Ointment, [facility]/pharmacy #[id number], 1 application Topically 2 times a day, 160, cm, 12/25/20 11:07:00 EDT, Height Start Date: 01/22/21 Status: OrderedFlonase 50 mcg/inh nasal spray 2 sprays, Nares, Both, Daily, # 1 each, 11 Refills, Maintenance, 11/28/15 10:07:00, [place], 2 sprays Nares, Both Daily,x30 days Start Date: 11/28/15 Stop Date: 11/22/16 Status: Orderedgabapentin 100 mg oral capsule 200 mg, 2, capsule, By Mouth, 3 times a day, # 180 capsule, Refills 1, Tot. Refills 1, Maintenance, 08/24/19 10:30:07 EST, Route to Pharmacy Electronically, [id number], [facility]/pharmacy #[id number] Start Date: 08/24/19 Status: Orderedtacrolimus 0.1% topical ointment 1 application, Topically, 2 times a day, INSTR:APPLY SPARINGLY AND RUB IN WELL, # 30 Gm, 1 Refills, Maintenance, 12/25/20 12:58:00 EDT, [facility]/pharmacy #[id number], 30, 1 application Topically 2 times a day,Instr:INSTR:APPLY SPARINGLY AND RUB IN WELL, 160, cm,... Start Date: 12/25/20 Status: Orderedvenlafaxine 150 mg oral capsule, extended release 150 mg, 1, capsule, By Mouth, Daily, # 30 capsule, Refills 1, Tot. Refills 1, Maintenance, 12/25/20 12:57:00 EDT, Route to Pharmacy Electronically, [facility]/pharmacy #[id number], 160, cm, 12/25/20 11:07:00 EDT, Height Start Date: 12/25/20 Status: Ordered Problem List Condition Effective Dates Status Health Status Informant Abdominal pain(Confirmed) Active Bilateral carpal tunnel Active syndrome(Confirmed)1 Chronic constipation(Confirmed) Active Chronic dermatitis(Confirmed) Active Chronic rhinitis(Confirmed) Active Bilateral ovarian cysts(Confirmed) Active H/O syncope(Confirmed)2, 3 Active H/O dizziness(Confirmed) Active H/O alcohol abuse(Confirmed) Active Insomnia(Confirmed) Active Depression, major(Confirmed)4, 5, 6, Active 7, 8 Nephrolithiasis(Confirmed)9 Active Lower extremity pain(Confirmed) Active Patent foramen ovale(Confirmed) Active cortisone fllvltylf3qhdmkcpd tilt table, fludrocortisone started per xcixgfmwrw9jzmy coital; referred cardiologly for tilt table,other investigations if yoxycn2ZFV7;115in therapy;not bipolar per qbkgihqwk9rimdcobv mood bdqqnrphpcxxpt3ifeq disorders questionnare;8seeing mental hjlmkx3bldouvwbtkz,Dr carmona Procedures Procedure Date Related Diagnosis Body Site Status Computed tomography, abdomen and 11/06/12 Completed pelvis; without contrast material1 Computed tomography, abdomen; with 09/25/10 Completed contrast material(s)2 Duplex scan of extremity veins 11/29/09 Completed including responses to compression and other maneuvers; complete bilateral study3 Echocardiogram4 04/16/08 Completed 1nonobstruting bilateral renal calculi,no gorvunsraofxrn08 mm obstructing renal ston e,mild hydronephrosis, bilateral lymvewy8nxmy lowertr EXt no DVT or irgx5lv 55%, PFO not well demonstarted Social History Social History Type Response Smoking Status Never smoker entered on: 10/07/13 Sex
--- OUTSIDE RECORDS SUMMARY | 2022-11-25 22:43 | XMS_ITS | Continuity of Care Document ---
:1970 Author Organization [facility] Adult Address [address] [place] [address]- Care Team Providers Name Role Phone Prudencio MEEK, Raimundo Montes Primary Care Physician Encounter [facility] Date(s): 09/01/20 - 10/01/20 [facility] [address] [place] [address]- Allergies, Adverse Reactions, Alerts Substance Reaction Severity [...] Not Given P atient Refuses 1Location History: [facility]2Result Comment: [id number] Note: got at ppsn2Dyobn Note: hlghlifvn9Wjvwt Note: [facility] Medications Benadryl Tablet = 25 mg, By Mouth, Daily at bedtime, 0 Refills, Maintenance, 06/16/15 15:31:35 Start Date: 06/16/15 Status: Orderedbetamethasone topical dipropionate 0.05% ointment 1 application, Topically, 2 times a day, # 45 Gm, 1 Refills, Maintenance, 03/16/20 9:06:00 EDT, Ointment, [facility]/pharmacy #[id number], 1 application Topically 2 times a day, 160, cm, 03/09/20 12:35:00 EDT, Height, 65.9, kg, 07/04/18 1:15:00 EDT, Dry Weight Start Date: 03/16/20 Status: OrderedFlonase 50 mcg/inh nasal spray 2 sprays, Nares, Both, Daily, # 1 each, 11 Refills, Maintenance, 11/28/15 10:07:00, [place], 2 sprays Nares, Both Daily,x30 days Start Date: 11/28/15 Stop Date: 11/22/16 Status: Orderedgabapentin 100 mg oral capsule 200 mg, 2, capsule, By Mouth, 3 times a day, # 180 capsule, Refills 1, Tot. Refills 1, Maintenance, 08/24/19 10:30:07 EST, Route to Pharmacy Electronically, [id number], [facility]/pharmacy #[id number] Start Date: 08/24/19 Status: Orderedprazosin 1 mg oral capsule 1 mg, 1, capsule, By Mouth, Daily at bedtime, # 90 capsule, Refills 0, Tot. Refills 0, Maintenance, 02/15/20 7:19:00 EDT, Route to Pharmacy Electronically, [facility]/pharmacy #[id number], 160, cm, 07/15/19 10:05:00 EDT, Height, 65.9, kg, 07/04/18 1:15:00 EDT, Dry... Start Date: 02/15/20 Status: Orderedtacrolimus 0.1% topical ointment 1 application, Topically, 2 times a day, INSTR:APPLY SPARINGLY AND RUB IN WELL, # 30 Gm, 0 Refills, Maintenance, 09/04/20 11:34:00 EST, [facility]/pharmacy #[id number], 30, 1 application Topically 2 times a day,Instr:INSTR:APPLY SPARINGLY AND RUB IN WELL, 160, cm,... Start Date: 09/04/20 Status: Orderedvenlafaxine 150 mg oral capsule, extended release 150 mg, 1, capsule, By Mouth, Daily, # 30 capsule, Refills 5, Tot. Refills 5, Maintenance, 07/05/20 12:49:00 EDT, Route to Pharmacy Electronically, [facility]/pharmacy #[id number], 160, cm, 03/09/20 12:35:00 EDT, [...] pain(Confirmed) Active Patent foramen ovale(Confirmed) Active cortisone eqbmmifcg7tnjktuqi tilt table, fludrocortisone started per sofvnjfekp0hjsb coital; referred cardiologly for tilt table,other investigations if cbuhkf7loxgcufzvyn,Dr carmona Social History Social History Type Response Smoking Status Never smoker entered on: 10/07/13 Sex
--- OUTSIDE RECORDS SUMMARY | 2022-11-25 22:43 | XMS_ITS | Continuity of Care Document ---
:1970 Author Organization [facility] Adult Address [address] [place] [address]- Care Team Providers Name Role Phone Prudencio MEEK, Raimundo Montes Primary Care Physician Encounter [facility] [place] Date(s): 12/24/19 - 12/31/19 [facility] Adult [address] [place] [address]- [facility] Encounter Diagnosis Anxiety and depression (Discharge Diagnosis) - 12/24/19 PTSD (post-traumatic stress disorder) (Discharge Diagnosis) - 12/24/19 Attending Physician: Not on Staff, Attending MD [...] Not Given P atient Refuses 1Location History: [facility]2Result Comment: [id number] Note: got at [id number] Note: [id number] Note: [facility]. employer Medications Benadryl Tablet = 25 mg, By Mouth, Daily at bedtime, 0 Refills, Maintenance, 06/16/15 15:31:35 Start Date: 06/16/15 Status: Orderedbetamethasone topical dipropionate 0.05% ointment 1 application, Topically, 2 times a day, # 45 Gm, 1 Refills, Maintenance, 08/24/19 10:30:07 EST, Ointment, 1 application Topically 2 times a day Start Date: 08/24/19 Status: OrderedFlonase 50 mcg/inh nasal spray 2 sprays, Nares, Both, Daily, # 1 each, 11 Refills, Maintenance, 11/28/15 10:07:00, [place], 2 sprays Nares, Both Daily,x30 days Start Date: 11/28/15 Stop Date: 11/22/16 Status: Orderedgabapentin 100 mg oral capsule 200 mg, 2, capsule, By Mouth, 3 times a day, # 180 capsule, Refills 1, Tot. Refills 1, Maintenance, 08/24/19 10:30:07 EST, Route to Pharmacy Electronically, [id number], [facility]/pharmacy #[id number] Start Date: 08/24/19 Status: Orderedprazosin 1 mg oral capsule 1 mg, 1, capsule, By Mouth, Daily at bedtime, # 30 capsule, Refills 0, Tot. Refills 0, Maintenance, 12/24/19 9:21:00 EDT, Route to Pharmacy Electronically, [facility]/pharmacy #[id number], 160, cm, 07/15/19 10:05:00 EDT, Height, 65.9, kg, 07/04/18 1:15:00 EDT, Dry... Start Date: 12/24/19 Status: Orderedtacrolimus 0.1% topical ointment 1 application, Topically, 2 times a day, # 30 Gm, 0 Refills, Maintenance, 02/17/19 12:04:43 EDT, Ointment Start Date: 02/17/19 Status: Orderedvenlafaxine 150 mg oral capsule, extended release 150 mg, 1, capsule, By Mouth, Daily, # 30 capsule, Refills 3, Tot. Refills 3, Maintenance, 04/27/19 11:11:59 EDT, Route to Pharmacy Electronically, [id number], [id number] Start Date: 04/27/19 Status: Ordered Problem List Condition Effective Dates Status Health Status Informant Abdominal pain(Confirmed) Active Bilateral carpal tunnel Active syndrome(Confirmed)1 Chronic constipation(Confirmed) Active Chronic rhinitis(Confirmed) Active Bilateral ovarian cysts(Confirmed) Active Acid reflux(Confirmed) Active H/O syncope(Confirmed)2, 3 Active H/O dizziness(Confirmed) Active H/O alcohol abuse(Confirmed) Active Insomnia(Confirmed) Active Nephrolithiasis(Confirmed)4 Active Lower extremity pain(Confirmed) Active Patent foramen ovale(Confirmed) Active cortisone dgvnftfyz4tbgqfjny tilt table, fludrocortisone started per uyhmfomngb6izsp coital; referred cardiologly for tilt table,other investigations if suvptf8gyoqbpuzfaf,Dr carmona Diagnosis Diagnosis Type Effective Dates Health Clinical Infor mant Status Service Anxiety and Discharge 12/24/19 depression Diagnosis PTSD Discharge 12/24/19 (post-traumatic Diagnosis stress disorder) Social History Social History Type Response Smoking Status Never smoker entered on: 10/07/13 Sex
--- OUTSIDE RECORDS SUMMARY | 2022-11-25 22:43 | XMS_ITS | Continuity of Care Document ---
:1970 Author Organization [facility] Adult Address [address] [place] [address]- Care Team Providers Name Role Phone Nini Charlene ALEXANDRE Primary Care Physician [place]counter [facility] [place](s): 12/24/21 - 01/23/22 [facility] Adult [address] [place] [address]- Attending Physician: Admtr, Ar8 Allergies, Adverse Reactions, [...] Not Given P atient Refuses 1Location History: [facility]2Result Comment: [id number] Note: got at [id number] Note: [id number] Note: [facility]. employer Medications Benadryl Tablet = 25 mg, [...] pain(Confirmed) Active Patent foramen ovale(Confirmed) Active cortisone ucnjickub4inlcpjsf tilt table, fludrocortisone started per lszkzojhmy1wuir coital; referred cardiologly for tilt table,other investigations if lnlsog1YQP7;115in therapy;not bipolar per yagdtjqtg2edpjfeyb mood sncnshvgfptgpd0ppgb disorders questionnare;8seeing mental zijdyr6jzjqaggzgis,Dr carmona Procedures Procedure Date Related Diagnosis Body Site Status Computed tomography, abdomen and 11/06/12 Completed pelvis; without contrast material1 Computed tomography, abdomen; with 09/25/10 Completed contrast material(s)2 Duplex scan of extremity veins 11/29/09 Completed including responses to compression and other maneuvers; complete bilateral study3 Echocardiogram4 04/16/08 Completed 1nonobstruting bilateral renal calculi,no uhgslkynesqhto12 mm obstructing renal ston e,mild hydronephrosis, bilateral xesmitc0pguw lowertr EXt no DVT or gmdf4pb 55%, PFO not well demonstarted Social History Social History Type Response Smoking Status Never smoker entered on: 10/07/13 Sex
--- OUTSIDE RECORDS SUMMARY | 2022-11-25 22:43 | XMS_ITS | Continuity of Care Document ---
:1970 Author Organization [facility] Adult Address [address] [place] [address]- Care Team Providers Name Role Phone Nini ALEXANDRE, Charlene Fair Primary Care Physician Encounter [facility] [place] Date(s): 09/13/21 - 01/11/22 [facility] Adult [address] [place] [address]- Attending Physician: Charlene Terrazas NP Referring Physician: Raimundo Flannery MD Allergies, Adverse Reactions, Alerts Substance Reaction [...] Not Given P atient Refuses 1Location History: [facility]2Result Comment: [id number] Note: got at [id number] Note: yvrqwexdf5Otlny Note: [facility]. employer Medications Benadryl Tablet = 25 [...] pain(Confirmed) Active Patent foramen ovale(Confirmed) Active cortisone lzafgjeay9ripeouqn tilt table, fludrocortisone started per bjyxxxpzjn9eumr coital; referred cardiologly for tilt table,other investigations if lqfeho1FLO6;115in therapy;not bipolar per kevwvqxpy0tokuqizn mood ekpjmghypmonwh4nmrf disorders questionnare;8seeing mental vrhodg0kinxitnlhyo,Dr swanson Social History Social History Type Response Smoking Status Never smoker entered on: 10/07/13 Sex
--- OUTSIDE RECORDS SUMMARY | 2022-11-25 22:43 | XMS_ITS | Continuity of Care Document ---
:[address] [facility] Adult Address [address] [place] [address]- Care Team Providers Name Role Phone Raimundo Flannery MD Primary Care Physician Encounter [facility] Date(s): 09/04/20 - 11/08/20 [facility] Adult [address] [place] [address]- Encounter Diagnosis Depression, major (Discharge Diagnosis) - 10/07/20 Attending Physician: Raimundo Flannery MD Allergies, Adverse Reactions, [...] Not Given P atient Refuses 1Location History: [facility]2Result Comment: [id number] Note: got at [id number] Note: iwphaxtnf1Whlwm Note: [facility]. employer Medications Benadryl Tablet = 25 mg, By Mouth, Daily at bedtime, 0 Refills, Maintenance, 06/16/15 15:31:35 Start Date: 06/16/15 Status: Orderedbetamethasone topical dipropionate 0.05% ointment 1 application, Topically, 2 times a day, # 45 Gm, 1 Refills, Maintenance, 03/16/20 9:06:00 EDT, Ointment, [facility]/pharmacy #[id number], 1 application Topically 2 times a day, 160, cm, 03/09/20 12:35:00 EDT, Height, 65.9, kg, 07/04/18 1:15:00 EDT, Dry Weight Start Date: 03/16/20 Status: OrderedFlonase 50 mcg/inh nasal spray 2 sprays, Nares, Both, Daily, # 1 each, 11 Refills, Maintenance, 11/28/15 10:07:00, [place], 2 sprays Nares, Both Daily,x30 days Start Date: 11/28/15 Stop Date: 11/22/16 Status: Orderedgabapentin 100 mg oral capsule 200 mg, 2, capsule, By Mouth, 3 times a day, # 180 capsule, Refills 1, Tot. Refills 1, Maintenance, 08/24/19 10:30:07 EST, Route to Pharmacy Electronically, [id number], [facility]/pharmacy #[id number] Start Date: 08/24/19 Status: Orderedprazosin 1 mg oral capsule 1 mg, 1, capsule, By Mouth, Daily at bedtime, # 90 capsule, Refills 0, Tot. Refills 0, Maintenance, 02/15/20 7:19:00 EDT, Route to Pharmacy Electronically, [facility]/pharmacy #[id number], 160, cm, 07/15/19 10:05:00 EDT, Height, 65.9, kg, 07/04/18 1:15:00 EDT, Dry... Start Date: 02/15/20 Status: Orderedtacrolimus 0.1% topical ointment 1 application, Topically, 2 times a day, INSTR:APPLY SPARINGLY AND RUB IN WELL, # 30 Gm, 0 Refills, Maintenance, 09/04/20 11:34:00 EST, [facility]/pharmacy #[id number], 30, 1 application Topically 2 times a day,Instr:INSTR:APPLY SPARINGLY AND RUB IN WELL, 160, cm,... Start Date: 09/04/20 Status: Orderedvenlafaxine 150 mg oral capsule, extended release 150 mg, 1, capsule, By Mouth, Daily, # 30 capsule, Refills 5, Tot. Refills 5, Maintenance, 07/05/20 12:49:00 EDT, Route to Pharmacy Electronically, [facility]/pharmacy #[id number], 160, cm, 03/09/20 12:35:00 EDT, Height, [...] pain(Confirmed) Active Patent foramen ovale(Confirmed) Active cortisone tbtegfyqf8ijbvxtor tilt table, fludrocortisone started per kapgbmkxdr0ghub coital; referred cardiologly for tilt table,other investigations if osvunx3HLY2;115in therapy;not bipolar per nfqntsbfa7fdlqfwoc mood jeteixuxioxebs5wyul disorders questionnare;8seeing mental cdomlz1xdnwmzyuinh,Dr carmona Diagnosis Diagnosis Type Effective Dates Health Status Clinical In formant Service Depression, Discharge 10/07/20 major Diagnosis Social History Social History Type Response Smoking Status Never smoker entered on: 10/07/13 Sex
--- OUTSIDE RECORDS SUMMARY | 2022-11-25 22:43 | XMS_ITS | Continuity of Care Document ---
:1970 Author Organization [facility] Adult Address [address] [place] [address]- Care Team Providers Name Role Phone Charlene Terrazas NP Primary Care Physician Encounter [facility] [place] Date(s): 05/30/21 - 06/06/21 [facility] Adult [address] [place] [address]- Encounter Diagnosis Depression, major (Discharge Diagnosis) - 05/30/21 Alcoholism (Discharge Diagnosis) - 05/30/21 Attending Physician: Charlene Terrazas NP Allergies, Adverse Reactions, [...] Not Given P atient Refuses 1Location History: [facility]2Result Comment: [id number] Note: got at [id number] Note: yzcvpqmso5Akbev Note: [facility]. employer Medications Benadryl Tablet = 25 mg, By Mouth, Daily at bedtime, 0 Refills, Maintenance, 06/16/15 15:31:35 Start Date: 06/16/15 Status: Orderednaltrexone 50 mg oral tablet 1 tablet = 50 mg, By Mouth, Daily, # 30 tablet, 0 Refills, Maintenance, 05/30/21 10:05:00 EDT, Tablet, [facility]/pharmacy #[id number], 160, cm, 05/30/21 9:38:00 EDT, Height, 72.8, kg, 03/13/21 17:00:00 EDT, Dry Weight Start Date: 05/30/21 Stop Date: 06/29/21 Status: Orderedtriamcinolone 0.025% topical cream 1 application, Topically, 2 times a day, for 14 days, # 60 Gm, 0 Refills, Acute 06/08/21 14:34:00 EDT, 05/25/21 14:34:00 EDT, Cream, [facility]/pharmacy #[id number], Partial fill upon patient request if the prescription is for a schedule II opioid drug., 1 applica... Start Date: 05/25/21 Stop Date: 06/08/21 Status: Orderedvenlafaxine 150 mg oral capsule, extended release 150 mg, 1, capsule, By Mouth, Daily, # 30 capsule, Refills 0, Tot. Refills 0, Maintenance, 05/25/21 14:37:00 EDT, Do Not Route Start Date: 05/25/21 Status: Ordered Problem List Condition Effective Dates Status Health Status Informant Abdominal pain(Confirmed) Active Bilateral carpal tunnel Active syndrome(Confirmed)1 Chronic constipation(Confirmed) Active Chronic dermatitis(Confirmed) Active Chronic rhinitis(Confirmed) Active Bilateral ovarian cysts(Confirmed) Active H/O syncope(Confirmed)2, 3 Active H/O dizziness(Confirmed) Active H/O alcohol abuse(Confirmed) Active Insomnia(Confirmed) Active Depression, major(Confirmed)4, 5, 6, Active 7, 8 Nephrolithiasis(Confirmed)9 Active Lower extremity pain(Confirmed) Active Patent foramen ovale(Confirmed) Active cortisone xcqfjgmhg6bbisrxli tilt table, fludrocortisone started per sysnbwivph7lzdn coital; referred cardiologly for tilt table,other investigations if zeykhq9JAQ8;115in therapy;not bipolar per rqghzzuzc6bcwczhke mood hatygmlgirbyki8euxt disorders questionnare;8seeing mental qqjnsr0fkubtkflztp,Dr carmona Diagnosis Diagnosis Type Effective [facility] Clinical Infor [facility] Status Service Depression, major Discharge 05/30/21 Diagnosis Alcoholism Discharge 05/30/21 Diagnosis Vital Signs Most recent to oldest [Reference Range]: 1 Height 160 cm (05/30/21 9:38 AM) Social History Social History Type Response Smoking Status Never smoker entered on: 10/07/13 Sex
--- OUTSIDE RECORDS SUMMARY | 2022-11-25 22:43 | XMS_ITS | Continuity of Care Document ---
:1970 Author Organization [facility] Adult Address [address] [place] [address]- Care Team Providers Name Role Phone Nini BUSINESS SYSTEMS ADVISORCharlene Primary Care Physician [place] [facility] [place]09/21 [facility] Adult [address] [place] [address]- Attending Physician: Meghna Guido Allergies, Adverse Reactions, Alerts Substance Reaction Severity [...] P atient Refuses 1Location History: [place] [facility] zgnlpqoz0Bpokmf Comment: [id number] Note: got at [id number] Note: ihhgkzwxx6Hmfxb Note: [facility]. employer Medications Benadryl Tablet = 25 mg, By Mouth, Daily at bedtime, 0 Refills, Maintenance, 06/16/15 15:31:35 Start Date: 06/16/15 Status: Orderednaltrexone 50 mg oral tablet 1 tablet = 50 mg, By Mouth, Daily, # 30 tablet, 1 Refills, Maintenance, 07/10/21 8:59:00 EDT, Tablet, [id number], 160, cm, 07/10/21 8:55:00 EDT, Height, 72.8, kg, 03/13/21 17:00:00 EDT, Dry Weight Start Date: 07/10/21 Stop Date: 09/08/21 Status: Orderedtriamcinolone 0.025% topical cream See Instructions, APPLY TO AFFECTED AREA TWICE A DAY FOR 14 DAYS, # 60 Gm, 0 Refills, [id number], 30, APPLY TO AFFECTED AREA TWICE A DAY FOR 14 DAYS, 160, cm, 07/10/21 8:55:00 EDT, Height, 72.8, kg, 03/13/21 17:00:00 EDT, Dry Weight Start Date: 07/13/21 Status: Orderedvenlafaxine 150 mg oral capsule, extended release 150 mg, 1, capsule, By Mouth, Daily, for 30 days, # 30 capsule, Refills 2, Tot. Refills 2, Acute 09/27/21 13:08:00 EST, 06/29/21 13:08:00 EDT, Route to Pharmacy Electronically, [facility]/pharmacy #[id number], 160,cm, 05/30/21 9:38:00 EDT, Height, 72.8, kg, 03/13... Start Date: 06/29/21 Stop Date: 09/27/21 Status: Ordered Problem List Condition Effective Dates Status Health Status Informant Bilateral carpal tunnel Active syndrome(Confirmed)1 Chronic constipation(Confirmed) Active Chronic dermatitis(Confirmed) Active Chronic rhinitis(Confirmed) Active Bilateral ovarian cysts(Confirmed) Active H/O syncope(Confirmed)2, 3 Active H/O dizziness(Confirmed) Active H/O alcohol abuse(Confirmed) Active Insomnia(Confirmed) Active Depression, major(Confirmed)4, 5, 6, Active 7, 8 Nephrolithiasis(Confirmed)9 Active Lower extremity pain(Confirmed) Active Patent foramen ovale(Confirmed) Active cortisone bxwidmglr1lwhoutkr tilt table, fludrocortisone started per lglpovaqvj8tlcr coital; referred cardiologly for tilt table,other investigations if badldv1AND2;115in therapy;not bipolar per gqvspxqna6kvgpteuc mood twzkyqjsrhptqp0evcz disorders questionnare;8seeing mental xitoru6idsolaxkzck,Dr carmona Procedures Procedure Date Related Diagnosis Body Site Status Computed tomography, abdomen and 11/06/12 Completed pelvis; without contrast material1 Computed tomography, abdomen; with 09/25/10 Completed contrast material(s)2 Duplex scan of extremity veins 11/29/09 Completed including responses to compression and other maneuvers; complete bilateral study3 Echocardiogram4 04/16/08 Completed 1nonobstruting bilateral renal calculi,no qsnuqqeduxwpnk58 mm obstructing renal ston e,mild hydronephrosis, bilateral blfxzld8iayv lowertr EXt no DVT or stym5mo 55%, PFO not well demonstarted Social History Social History Type Response Smoking Status Never smoker entered on: 10/07/13 Sex
--- OUTSIDE RECORDS SUMMARY | 2022-11-25 22:43 | XMS_ITS | Continuity of Care Document ---
:1970 Author Organization [facility] Adult Address [address] [place] [address]- Care Team Providers Name Role Phone Prudencio MEEK, Raimundo Montes Primary Care Physician Encounter [facility] Date(s): 12/24/19 - 01/03/20 [facility] Adult [address] [place] [address]- [facility] Attending Physician: Admtr, Ar8 Allergies, Adverse Reactions, [...] Not Given P atient Refuses 1Location History: [facility]2Result Comment: [id number] Note: got at [id number] Note: [id number] Note: [facility] employer Medications Benadryl Tablet = 25 mg, [...] 1 each, 11 Refills, Maintenance, 11/28/15 10:07:00, [place], 2 sprays Nares, Both Daily,x30 days Start Date: 11/28/15 Stop Date: 11/22/16 Status: Orderedgabapentin 100 mg oral capsule 200 mg, 2, capsule, By Mouth, 3 times a day, # 180 capsule, Refills 1, Tot. Refills 1, Maintenance, 08/24/19 10:30:07 EST, Route to Pharmacy Electronically, [id number], [facility]/pharmacy #[id number] Start Date: 08/24/19 Status: Orderedprazosin 1 mg oral capsule 1 mg, 1, capsule, By Mouth, Daily at bedtime, # 30 capsule, Refills 0, Tot. Refills 0, Maintenance, 12/24/19 9:21:00 EDT, Route to Pharmacy Electronically, [facility]/pharmacy #[id number], 160, cm, 07/15/19 [...] 04/27/19 11:11:59 EDT, Route to Pharmacy Electronically, [id number], [facility]/pharmacy #[id number] Start Date: 04/27/19 Status: Ordered Problem List Condition Effective Dates Status Health Status Informant Abdominal pain(Confirmed) Active Bilateral carpal tunnel Active syndrome(Confirmed)1 Chronic constipation(Confirmed) Active Chronic rhinitis(Confirmed) Active Bilateral ovarian cysts(Confirmed) Active Acid reflux(Confirmed) Active H/O syncope(Confirmed)2, 3 Active H/O dizziness(Confirmed) Active H/O alcohol abuse(Confirmed) Active Insomnia(Confirmed) Active Nephrolithiasis(Confirmed)4 Active Lower extremity pain(Confirmed) Active Patent foramen ovale(Confirmed) Active cortisone blnugamrz4kbupfvdj tilt table, fludrocortisone started per cflbzoqbda1sxer coital; referred cardiologly for tilt table,other investigations if lkklmu5navnnprxymi,Dr carmona Procedures Procedure Date Related Diagnosis Body Site Status Computed tomography, abdomen and 11/06/12 Completed pelvis; without contrast material1 Computed tomography, abdomen; with 09/25/10 Completed contrast material(s)2 Duplex scan of extremity veins 11/29/09 Completed including responses to compression and other maneuvers; complete bilateral study3 Echocardiogram4 04/16/08 Completed 1nonobstruting bilateral renal calculi,no llrmanbmfygryw66 mm obstructing renal ston e,mild hydronephrosis, bilateral aehkhui3uced lowertr EXt no DVT or aaup7yt 55%, PFO not well demonstarted Social History Social History Type Response Smoking Status Never smoker entered on: 10/07/13 Sex
--- OUTSIDE RECORDS SUMMARY | 2022-11-25 22:43 | XMS_ITS | Continuity of Care Document ---
:1970 Author Organization [facility] Adult Address [address] [place] [address]- Care Team Providers Name Role Phone Prudencio MEEK, Raimundo Montes Primary Care Physician Encounter [facility] Date(s): 10/09/20 - 11/08/20 [facility] Adult [address] [place] [address]- Attending Physician: Admtr, Ar8 Allergies, Adverse Reactions, [...] Not Given P atient Refuses 1Location History: [facility]2Result Comment: [id number] Note: got at mgkn3Ltyva Note: xlxpnquiw6Euomf Note: [facility] employer Medications Benadryl Tablet = 25 mg, By Mouth, Daily at bedtime, 0 Refills, Maintenance, 06/16/15 15:31:35 Start Date: 06/16/15 Status: Orderedbetamethasone topical dipropionate 0.05% ointment 1 application, Topically, 2 times a day, # 45 Gm, 1 Refills, Maintenance, 03/16/20 9:06:00 EDT, Ointment, [facility]/pharmacy #[id number], 1 application Topically 2 times a day, 160, cm, 03/09/20 12:35:00 EDT, Height, 65.9, kg, 07/04/18 1:15:00 EDT, Dry Weight Start Date: 03/16/20 Status: OrderedFlonase 50 mcg/inh nasal spray 2 sprays, Nares, Both, Daily, # 1 each, 11 Refills, Maintenance, 11/28/15 10:07:00, [place], 2 sprays Nares, Both Daily,x30 days Start Date: 11/28/15 Stop Date: 11/22/16 Status: Orderedgabapentin 100 mg oral capsule 200 mg, 2, capsule, By Mouth, 3 times a day, # 180 capsule, Refills 1, Tot. Refills 1, Maintenance, 08/24/19 10:30:07 EST, Route to Pharmacy Electronically, [id number], [facility]/pharmacy #[id number] Start Date: 08/24/19 Status: Orderedprazosin 1 mg oral capsule 1 mg, 1, capsule, By Mouth, Daily at bedtime, # 90 capsule, Refills 0, Tot. Refills 0, Maintenance, 02/15/20 7:19:00 EDT, Route to Pharmacy Electronically, [facility]/pharmacy #[id number], 160, cm, 07/15/19 10:05:00 EDT, Height, 65.9, kg, 07/04/18 1:15:00 EDT, Dry... Start Date: 02/15/20 Status: Orderedtacrolimus 0.1% topical ointment 1 application, Topically, 2 times a day, INSTR:APPLY SPARINGLY AND RUB IN WELL, # 30 Gm, 0 Refills, Maintenance, 09/04/20 11:34:00 EST, [facility]/pharmacy #[id number], 30, 1 application Topically 2 times a day,Instr:INSTR:APPLY SPARINGLY AND RUB IN WELL, 160, cm,... Start Date: 09/04/20 Status: Orderedvenlafaxine 150 mg oral capsule, extended release 150 mg, 1, capsule, By Mouth, Daily, # 30 capsule, Refills 5, Tot. Refills 5, Maintenance, 07/05/20 12:49:00 EDT, Route to Pharmacy Electronically, [facility]/pharmacy #[id number], 160, cm, 03/09/20 12:35:00 [...] pain(Confirmed) Active Patent foramen ovale(Confirmed) Active cortisone oyjvshhjb7yhiehdsq tilt table, fludrocortisone started per kmkuanubri4phww coital; referred cardiologly for tilt table,other investigations if lwjnpz1MHV9;115in therapy;not bipolar per qpzqpcunv0txkcjxsm mood qqjkmgztzupyax2fsue disorders questionnare;8seeing mental myueeh2mpfblmvnpre,Dr carmona Procedures Procedure Date Related Diagnosis Body Site Status Computed tomography, abdomen and 11/06/12 Completed pelvis; without contrast material1 Computed tomography, abdomen; with 09/25/10 Completed contrast material(s)2 Duplex scan of extremity veins 11/29/09 Completed including responses to compression and other maneuvers; complete bilateral study3 Echocardiogram4 04/16/08 Completed 1nonobstruting bilateral renal calculi,no bskdssdmuewpmi23 mm obstructing renal ston e,mild hydronephrosis, bilateral tsaxksg2madv lowertr EXt no DVT or howa2wf 55%, PFO not well demonstarted Social History Social History Type Response Smoking Status Never smoker entered on: 10/07/13 Sex
--- OUTSIDE RECORDS SUMMARY | 2022-11-25 22:43 | XMS_ITS | Continuity of Care Document ---
:1970 Author Organization [facility] Address [address] [place] [address]- Care Team Providers Name Role Phone Prudencio MEEK, Raimundo Montes Primary Care Physician Encounter [facility] [place] Date(s): 12/01/21 - 12/01/[address] [address]- Discharge Disposition: A-D/C Home Attending Physician: Osmani Metcalf MD Admitting Physician: Osmani Metcalf MD Referring Physician: Not on Staff, Referring MD Allergies, Adverse Reactions, Alerts Substance Reaction [...] Given P atient Refuses 1Location History: [facility]2Result Comment: [id number] Note: got at [id number] Note: blkkbwiqh1Jjctq Note: [facility]. employer Medications Benadryl Tablet = 25 mg, By Mouth, Daily at bedtime, 0 Refills, Maintenance, 06/16/15 15:31:35 Start Date: 06/16/15 Status: Ordered Problem List Condition Effective Dates Status Health Status Informant Bilateral carpal tunnel Active syndrome(Confirmed)1 Chronic constipation(Confirmed) Active Chronic dermatitis(Confirmed) Active Chronic rhinitis(Confirmed) Active Bilateral ovarian cysts(Confirmed) Active H/O syncope(Confirmed)2, 3 Active H/O dizziness(Confirmed) Active H/O alcohol abuse(Confirmed) Active Insomnia(Confirmed) Active Depression, major(Confirmed)4, 5, 6, Active 7, 8 Nephrolithiasis(Confirmed)9 Active Lower extremity pain(Confirmed) Active Patent foramen ovale(Confirmed) Active cortisone cgdedgxdh9pdveffwz tilt table, fludrocortisone started per ipnicwpkqx1urhm coital; referred cardiologly for tilt table,other investigations if zpwoua3RQY7;115in therapy;not bipolar per hfxxuwcrv9jtoktxbw mood jyyjrlfarrnwuj4tntj disorders questionnare;8seeing mental dktywq5frwqrtssndk,Dr carmona Results Radiology Reports Exam Date Time Procedure Performing Provider Status 12/01/21 12:10 PM Chest 2 Views Frontal and Lat Kelly Mcdaniel ; Auth (Verified) Notes:(Chest 2 Views Frontal and Lat) Reason For Exam: Shortness of Breath RESULT: Chest 2 Views Frontal and Lat Chest 2 Views Frontal and Lat Hx of Present Illness: BLE swelling x3 days, SOB i4mzwdvgkzseso to triage desk with steady gait, appears to be in NAD; Reason: Shortness of Breath; Clinical Question(s): CHF COMPARISON: Chest x-ray from 10/30/2016 FINDINGS: LINES AND TUBES: None. LUNGS AND PLEURA: Clear lungs. Normal pulmonary vascularity. No pleural effusion. No pneumothorax. HEART, MEDIASTINUM AND JANINE: Heart is normal in size. Normal upper mediastinal and hilar contour. BONES AND SOFT TISSUES: No acute abnormality. IMPRESSION: No acute abnormality. WSN: [id number] Ordering Physician: Osmani Metcalf Dictated By: Dong Kolb MD Dictated Date/Time: 12/01/21 1:13 pm Reviewed By: Dong Kolb MD Signed By: Dong Kolb MD Signed Date/Time: 12/01/21 1:13 pm Transcribed By: PHILIPPE Transcribed Date/Time: 12/01/21 1:12 pm Vital Signs Most recent to oldest 1 2 3 [Reference Range]: Oxygen Saturation [94-100 %] 98 % 98 % 99 % (12/01/21 2:37 PM) (12/01/21 10:18 AM) (12/01/21 10 :11 AM) Pulse Rate [55-90 bpm] 68 bpm 95 bpm 110 bpm (12/01/21 2:37 PM) *H* *H* (12/01/21 10:18 AM) (12/01/21 10:1 1 AM) Blood Pressure [90-138/55-84 129/80 mm Hg 122/80 mm Hg mm Hg] (12/01/21 2:37 PM) (12/01/21 10:18 AM) Respiratory Rate [16-30 19 br/min 16 br/min br/min] (12/01/21 2:37 PM) (12/01/21 10:18 AM) Temperature [96.8-100.4 DegF] 98.5 DegF 98.5 DegF (12/01/21 2:37 PM) (12/01/21 10:18 AM) Mode of Delivery (Oxygen) Room air Room air Room a ir (12/01/21 2:37 PM) (12/01/21 10:18 AM) (12/01/21 10 :11 AM) Blood pressure sites Arm, right Arm, right (12/01/21 2:37 PM) (12/01/21 10:18 AM) Temperature Route Oral Oral (12/01/21 2:37 PM) (12/01/21 10:18 AM) Social History Social History Type Response Smoking Status Never smoker entered on: 10/07/13 Sex
--- OUTSIDE RECORDS SUMMARY | 2022-11-25 22:43 | XMS_ITS | Continuity of Care Document ---
:1970 Author Organization [facility] Address [address] [place] [address]- Care Team Providers Name Role Phone Prudencio MEEK, Raimundo Montes Primary Care Physician Encounter [facility] Date(s): 03/09/20 - 04/08/20 [facility] [address] [place] [address]- [facility] Attending Physician: Admtr, Ar8 Allergies, Adverse Reactions, [...] 1Location History: [facility]2Result Comment: [id number] Note: got at jrod6Vgehc Note: pizvoarrj7Ihavt Note: [facility] employer Medications Benadryl Tablet = 25 mg, By Mouth, Daily at bedtime, 0 Refills, Maintenance, 06/16/15 15:31:35 Start Date: 06/16/15 Status: Orderedbetamethasone topical dipropionate 0.05% ointment 1 application, Topically, 2 times a day, # 45 Gm, 1 Refills, Maintenance, 03/16/20 9:06:00 EDT, Ointment, [id number], 1 application Topically 2 times a day, 160, cm, 03/09/20 12:35:00 EDT, Height, 65.9, kg, 07/04/18 1:15:00 EDT, Dry Weight Start Date: 03/16/20 Status: OrderedFlonase 50 mcg/inh nasal spray 2 sprays, Nares, Both, Daily, # 1 each, 11 Refills, Maintenance, 11/28/15 10:07:00, [place], 2 sprays Nares, Both Daily,x30 days Start Date: 11/28/15 Stop Date: 11/22/16 Status: Orderedgabapentin 100 mg oral capsule 200 mg, 2, capsule, By Mouth, 3 times a day, # 180 capsule, Refills 1, Tot. Refills 1, Maintenance, 08/24/19 10:30:07 EST, Route to Pharmacy Electronically, [id number], [facility]/pharmacy #[id number] Start Date: 08/24/19 Status: Orderedprazosin 1 mg oral capsule 1 mg, 1, capsule, By Mouth, Daily at bedtime, # 90 capsule, Refills 0, Tot. Refills 0, Maintenance, 02/15/20 7:19:00 EDT, Route to Pharmacy Electronically, [facility]/pharmacy #[id number], 160, cm, 07/15/19 10:05:00 EDT, Height, [...] 04/27/19 11:11:59 EDT, Route to Pharmacy Electronically, [id number], [facility]/pharmacy #[id number] Start Date: 04/27/19 Status: Ordered Problem List Condition Effective Dates Status Health Status Informant Abdominal pain(Confirmed) Active Bilateral carpal tunnel Active syndrome(Confirmed)1 Chronic constipation(Confirmed) Active Chronic rhinitis(Confirmed) Active Bilateral ovarian cysts(Confirmed) Active Acid reflux(Confirmed) Active H/O syncope(Confirmed)2, 3 Active H/O dizziness(Confirmed) Active H/O alcohol abuse(Confirmed) Active Insomnia(Confirmed) Active Nephrolithiasis(Confirmed)4 Active Lower extremity pain(Confirmed) Active Patent foramen ovale(Confirmed) Active cortisone bnoejcomc0oqvbhlck tilt table, fludrocortisone started per ehrpjyefys1kzqz coital; referred cardiologly for tilt table,other investigations if fcpkhb2bisvcqjofef,Dr carmona Procedures Procedure Date Related Diagnosis Body Site Status Computed tomography, abdomen and 11/06/12 Completed pelvis; without contrast material1 Computed tomography, abdomen; with 09/25/10 Completed contrast material(s)2 Duplex scan of extremity veins 11/29/09 Completed including responses to compression and other maneuvers; complete bilateral study3 Echocardiogram4 04/16/08 Completed 1nonobstruting bilateral renal calculi,no vclgootgzekhif41 mm obstructing renal ston e,mild hydronephrosis, bilateral ilxuron3hnwj lowertr EXt no DVT or libp3ks 55%, PFO not well demonstarted Social History Social History Type Response Smoking Status Never smoker entered on: 10/07/13 Sex
--- OUTSIDE RECORDS SUMMARY | 2022-11-25 22:43 | XMS_ITS | Continuity of Care Document ---
:1970 Author Organization [facility] Address [address] [place] [address]- Care Team Providers Name Role Phone Nini Charlene ALEXANDRE Primary Care Physician Encounter [facility] Date(s): 05/29/21 - 06/28/21 [facility] [address] [place] [address]- Allergies, Adverse Reactions, Alerts Substance Reaction Severity [...] Not Given P atient Refuses 1Location History: [facility]2Result Comment: [id number] Note: got at phxq6Hmnay Note: nwbgwsqdw9Gacut Note: [facility]. employer Medications Benadryl Tablet = 25 mg, By Mouth, Daily at bedtime, 0 Refills, Maintenance, 06/16/15 15:31:35 Start Date: 06/16/15 Status: Orderednaltrexone 50 mg oral tablet 1 tablet = 50 mg, By Mouth, Daily, # 30 tablet, 0 Refills, Maintenance, 05/30/21 10:05:00 EDT, [facility]t, [id number], 160, cm, 05/30/21 9:38:00 EDT, Height, 72.8, kg, 03/13/21 17:00:00 EDT, Dry Weight Start Date: 05/30/21 Stop Date: 06/29/21 Status: Orderedvenlafaxine 150 mg oral capsule, extended [...] pain(Confirmed) Active Patent foramen ovale(Confirmed) Active cortisone fpkftcxsz8pfhovbkg tilt table, fludrocortisone started per jzwgcqydyz5pqth coital; referred cardiologly for tilt table,other investigations if twipsm3NAK5;115in therapy;not bipolar per vbscqkhiv2vrgkbypz mood sqizotxabzrvqz8efrj disorders questionnare;8seeing mental wjmfle2kwwinfwpvka,Dr carmona Social History Social History Type Response Smoking Status Never smoker entered on: 10/07/13 Sex
--- OUTSIDE RECORDS SUMMARY | 2022-11-25 22:44 | XMS_ITS | Continuity of Care Document ---
:1970 Author Organization [facility] Address [address] [place] [address]- Care Team Providers Name Role Phone Nini POLYMER SCIENTISTCharlene Primary Care Physician [place] [facility] [place] Date(s): 07/09/21 - 08/08/21 [facility] [address] [place] [address]- Allergies, Adverse Reactions, Alerts Substance Reaction Severity [...] 1Location History: [facility]2Result Comment: [id number] Note: got at urju5Plpqf Note: caoyedlgk2Ovgth Note: [facility]. employer Medications Benadryl Tablet = 25 mg, By Mouth, Daily at bedtime, 0 Refills, Maintenance, 06/16/15 15:31:35 Start Date: 06/16/15 Status: Orderednaltrexone 50 mg oral tablet 1 tablet = 50 mg, By Mouth, Daily, # 30 tablet, 1 Refills, Maintenance, 07/10/21 8:59:00 EDT, Tablet, [facility]/pharmacy #[id number], 160, cm, 07/10/21 8:55:00 EDT, Height, 72.8, kg, 03/13/21 17:00:00 EDT, Dry Weight Start Date: 07/10/21 Stop Date: 09/08/21 Status: Orderedtriamcinolone 0.025% topical cream See Instructions, APPLY TO AFFECTED AREA TWICE A DAY FOR 14 DAYS, # 60 Gm, 0 Refills, [id number], 30, APPLY TO AFFECTED AREA TWICE A [...] 06/29/21 13:08:00 EDT, Route to Pharmacy Electronically, [facility]/pharmacy #[id number], 160,cm, 05/30/21 9:38:00 EDT, [...] pain(Confirmed) Active Patent foramen ovale(Confirmed) Active cortisone pviaaldlm8frtoqqrg tilt table, fludrocortisone started per ebxbzkfdyh2ldsh coital; referred cardiologly for tilt table,other investigations if roxnel5DUI5;115in therapy;not bipolar per lzpmozaci2nxakxhse mood itfnznzxuqgpeq3xltz disorders questionnare;8seeing mental wykvzg6gibmvggwbic,Dr carmona Social History Social History Type Response Smoking Status Never smoker entered on: 10/07/13 Sex
--- OUTSIDE RECORDS SUMMARY | 2022-11-25 22:44 | XMS_ITS | Continuity of Care Document ---
:1970 Author Organization [facility] Address [address] [place] [address]- Care Team Providers Name Role Phone Prudencio MEEK, Raimundo Montes Primary Care Physician Encounter [facility] Date(s): 07/05/20 - 08/04/20 [facility] [address] [place] [address]- [facility] Allergies, Adverse Reactions, Alerts Substance Reaction [...] Not Given P atient Refuses 1Location History: [facility]2Result Comment: [id number] Note: got at knbi4Cunkh Note: etyevhcgg9Relrr Note: [facility] [employer]. employer Medications Benadryl Tablet = 25 mg, By Mouth, Daily at bedtime, 0 Refills, Maintenance, 06/16/15 15:31:35 Start Date: 06/16/15 Status: Orderedbetamethasone topical dipropionate 0.05% ointment 1 application, Topically, 2 times a day, # 45 Gm, 1 Refills, Maintenance, 03/16/20 9:06:00 EDT, Ointment, [facility]/pharmacy #[id number], 1 application Topically 2 times a day, 160, cm, 03/09/20 12:35:00 EDT, Height, 65.9, kg, 07/04/18 1:15:00 EDT, Dry Weight Start Date: 03/16/20 Status: OrderedFlonase 50 mcg/inh nasal spray 2 sprays, Nares, Both, Daily, # 1 each, 11 Refills, Maintenance, 11/28/15 10:07:00, [place], 2 sprays Nares, Both Daily,x30 days Start Date: 11/28/15 Stop Date: 11/22/16 Status: Orderedgabapentin 100 mg oral capsule 200 mg, 2, capsule, By Mouth, 3 times a day, # 180 capsule, Refills 1, Tot. Refills 1, Maintenance, 08/24/19 10:30:07 EST, Route to Pharmacy Electronically, [id number], [facility]/pharmacy #[id number] Start Date: 08/24/19 Status: Orderedprazosin 1 mg oral capsule 1 mg, 1, capsule, By Mouth, Daily at bedtime, # 90 capsule, Refills 0, Tot. Refills 0, Maintenance, 02/15/20 7:19:00 EDT, Route to Pharmacy Electronically, [facility]/pharmacy #[id number], 160, cm, 07/15/19 10:05:00 EDT, Height, 65.9, kg, 07/04/18 1:15:00 EDT, Dry... Start Date: 02/15/20 Status: Orderedtacrolimus 0.1% topical ointment 1 application, Topically, 2 times a day, INSTR:APPLY SPARINGLY AND RUB IN WELL, # 30 Gm, 0 Refills, Acute, 07/28/20 13:08:00 EDT, [facility] STORE [id number], 30, 1 APPLICATOR TOPICALLY 2 TIMES A DAY,INSTR:APPLY SPARINGLY AND RUB IN WELL, 160, cm, 03/09/20 12:35:... Start Date: 07/28/20 Status: Orderedvenlafaxine 150 mg oral capsule, extended release 150 mg, 1, capsule, By Mouth, Daily, # 30 capsule, Refills 5, Tot. Refills 5, Maintenance, 07/05/20 12:49:00 EDT, Route to Pharmacy Electronically, [facility]/pharmacy #[id number], 160, cm, 03/09/20 12:35:00 [...] pain(Confirmed) Active Patent foramen ovale(Confirmed) Active cortisone rhclaqmaq6tnokvvry tilt table, fludrocortisone started per tioywdgxci3bqoe coital; referred cardiologly for tilt table,other investigations if huygdn9pyezvyxstdw,Dr swanson Social History Social History Type Response Smoking Status Never smoker entered on: 10/07/13 Sex
--- OUTSIDE RECORDS SUMMARY | 2022-11-25 22:44 | XMS_ITS | Continuity of Care Document ---
:1970 Author Organization [facility] [place] Address [address] [place] [address]- Care Team Providers Name Role Phone Prudencio MEEK, Raimundo Montes Primary Care Physician Encounter [facility] Date(s): 05/16/20 - 06/15/20 [facility] [place] [address] [place] [address]- [facility] Allergies, Adverse Reactions, Alerts Substance Reaction [...] Not Given P atient Refuses 1Location History: [facility]2Result Comment: [id number] Note: got at bxxu0Ykhri Note: fppybvwpk9Mdqye Note: [employer]. employer Medications Benadryl Tablet = 25 mg, By Mouth, Daily at bedtime, 0 Refills, Maintenance, 06/16/15 15:31:35 Start Date: 06/16/15 Status: Orderedbetamethasone topical dipropionate 0.05% ointment 1 application, Topically, 2 times a day, # 45 Gm, 1 Refills, Maintenance, 03/16/20 9:06:00 EDT, Ointment, [facility]/pharmacy #[id number], 1 application Topically 2 times a day, 160, cm, 03/09/20 12:35:00 EDT, Height, 65.9, kg, 07/04/18 1:15:00 EDT, Dry Weight Start Date: 03/16/20 Status: OrderedFlonase 50 mcg/inh nasal spray 2 sprays, Nares, Both, Daily, # 1 each, 11 Refills, Maintenance, 11/28/15 10:07:00, [place], 2 sprays Nares, Both Daily,x30 days Start Date: 11/28/15 Stop Date: 11/22/16 Status: Orderedgabapentin 100 mg oral capsule 200 mg, 2, capsule, By Mouth, 3 times a day, # 180 capsule, Refills 1, Tot. Refills 1, Maintenance, 08/24/19 10:30:07 EST, Route to Pharmacy Electronically, [id number], [facility]/pharmacy #[id number] Start Date: 08/24/19 Status: Orderedprazosin 1 mg oral capsule 1 mg, 1, capsule, By Mouth, Daily at bedtime, # 90 capsule, Refills 0, Tot. Refills 0, Maintenance, 02/15/20 7:19:00 EDT, Route to Pharmacy Electronically, [facility]/pharmacy #[id number], 160, cm, 07/15/19 10:05:00 EDT, Height, 65.9, kg, 07/04/18 1:15:00 EDT, Dry... Start Date: 02/15/20 Status: Orderedtacrolimus 0.1% topical ointment 1 applicator, Topically, 2 times a day, apply sparingly and rub in well, # 30 Gm, 0 Refills, Maintenance, 06/07/20 10:22:00 EDT, Ointment, [facility]/pharmacy #[id number], 1 applicator Topically 2 times a day,Instr:apply sparingly and rub in well, 160, cm, ... Start Date: 06/07/20 Status: Orderedvenlafaxine 150 mg oral capsule, extended release 150 mg, 1, capsule, By Mouth, Daily, # 30 capsule, Refills 1, Tot. Refills 1, Maintenance, 06/06/20 15:13:00 EDT, Route to Pharmacy Electronically, [facility]/pharmacy #[id number], 160, cm, 03/09/20 12:35:00 EDT, Height, [...] pain(Confirmed) Active Patent foramen ovale(Confirmed) Active cortisone ngcphqrwv1jfyisqmg tilt table, fludrocortisone started per cyjshgxsgo0jbge coital; referred cardiologly for tilt table,other investigations if pqvhyf3bsyjywmgmin,Dr carmona Social History Social History Type Response Smoking Status Never smoker entered on: 10/07/13 Sex
--- OUTSIDE RECORDS SUMMARY | 2022-11-25 22:44 | XMS_ITS | Continuity of Care Document ---
:1970 Author Organization [facility] Address [address] [place] [address]- Care Team Providers Name Role Phone Prudencio MEEK, Raimundo Montes Primary Care Physician Encounter [facility] Date(s): 03/08/20 - 04/08/20 [facility] [address] [place] [address]- [facility] Encounter Diagnosis Dermatitis (Discharge Diagnosis) - 03/09/20 Attending Physician: Nini ALEXANDRE, Charlene Fair Allergies, Adverse Reactions, Alerts Substance Reaction Severity [...] Not Given P atient Refuses 1Location History: [facility]2Result Comment: [id number] Note: got at feco7Bpjja Note: zwfwybspc5Pnmzq Note: [facility] Medications Benadryl Tablet = 25 mg, By Mouth, Daily at bedtime, 0 Refills, Maintenance, 06/16/15 15:31:35 Start Date: 06/16/15 Status: Orderedbetamethasone topical dipropionate 0.05% ointment 1 application, Topically, 2 times a day, # 45 Gm, 1 Refills, Maintenance, 03/16/20 9:06:00 EDT, Ointment, [facility]/pharmacy #[id number], 1 application Topically 2 times a day, 160, cm, 03/09/20 12:35:00 EDT, Height, 65.9, kg, 07/04/18 1:15:00 EDT, Dry Weight Start Date: 03/16/20 Status: OrderedFlonase 50 mcg/inh nasal spray 2 sprays, Nares, Both, Daily, # 1 each, 11 Refills, Maintenance, 11/28/15 10:07:00, [place], 2 sprays Nares, Both Daily,x30 days Start Date: 11/28/15 Stop Date: 11/22/16 Status: Orderedgabapentin 100 mg oral capsule 200 mg, 2, capsule, By Mouth, 3 times a day, # 180 capsule, Refills 1, Tot. Refills 1, Maintenance, 08/24/19 10:30:07 EST, Route to Pharmacy Electronically, [id number], [facility]/pharmacy #[id number] Start Date: 08/24/19 Status: Orderedprazosin 1 mg oral capsule 1 mg, 1, capsule, By Mouth, Daily at bedtime, # 90 capsule, Refills 0, Tot. Refills 0, Maintenance, 02/15/20 7:19:00 EDT, Route to Pharmacy Electronically, [facility]/pharmacy #[id number], 160, cm, 07/15/19 10:05:00 EDT, [...] 04/27/19 11:11:59 EDT, Route to Pharmacy Electronically, [id number], [facility]/pharmacy #[id number] Start Date: 04/27/19 Status: Ordered Problem List Condition Effective Dates Status Health Status Informant Abdominal pain(Confirmed) Active Bilateral carpal tunnel Active syndrome(Confirmed)1 Chronic constipation(Confirmed) Active Chronic rhinitis(Confirmed) Active Bilateral ovarian cysts(Confirmed) Active Acid reflux(Confirmed) Active H/O syncope(Confirmed)2, 3 Active H/O dizziness(Confirmed) Active H/O alcohol abuse(Confirmed) Active Insomnia(Confirmed) Active Nephrolithiasis(Confirmed)4 Active Lower extremity pain(Confirmed) Active Patent foramen ovale(Confirmed) Active cortisone amecdrdza6aqxfyxef tilt table, fludrocortisone started per vuzacdwzpi2tksz coital; referred cardiologly for tilt table,other investigations if sbcxsm2wjcftlpwxqc,Dr carmona Diagnosis Diagnosis Type Effective Dates Health Status Clinical Serv ice Informant Dermatitis Discharge 03/09/20 Diagnosis Vital Signs Most recent to oldest [Reference Range]: 1 Height 160 cm (03/09/20 12:35 PM) Social History Social History Type Response Smoking Status Never smoker entered on: 10/07/13 Sex
--- OUTSIDE RECORDS SUMMARY | 2022-11-25 22:44 | XMS_ITS | Continuity of Care Document ---
:1970 Author Organization [facility] Address [address] [place] [address]- Care Team Providers Name Role Phone Charlene Terrazas NP Primary Care Physician Encounter [facility] Date(s): 07/10/21 - 07/17/21 [facility] [address] [place] [address]- Encounter Diagnosis H/O alcohol abuse (Discharge Diagnosis) - 07/10/21 Attending Physician: Charlene Terrazas NP Allergies, Adverse [...] Not Given P atient Refuses 1Location History: [facility]2Result Comment: [id number] Note: got at wzgn1Kyymj Note: ftwrtvkah0Zqfzj Note: [employer]. employer Medications Benadryl Tablet = 25 mg, By Mouth, Daily at bedtime, 0 Refills, Maintenance, 06/16/15 15:31:35 Start Date: 06/16/15 Status: Orderednaltrexone 50 mg oral tablet 1 tablet = 50 mg, By Mouth, Daily, # 30 tablet, 1 Refills, Maintenance, 07/10/21 8:59:00 EDT, Tablet, [facility]/pharmacy #[id number], 160, cm, 07/10/21 8:55:00 EDT, Height, 72.8, kg, 03/13/21 17:00:00 EDT, Dry Weight Start Date: 07/10/21 Stop Date: 09/08/21 Status: Orderedtriamcinolone 0.025% topical cream See Instructions, APPLY TO AFFECTED AREA TWICE A DAY FOR 14 DAYS, # 60 Gm, 0 Refills, [id number], 30, APPLY TO AFFECTED AREA TWICE A [...] 06/29/21 13:08:00 EDT, Route to Pharmacy Electronically, [facility]/pharmacy #[id number], 160,cm, 05/30/21 9:38:00 EDT, Height, 72.8, [...] pain(Confirmed) Active Patent foramen ovale(Confirmed) Active cortisone thnwqatbl8ouuttxph tilt table, fludrocortisone started per wzbnpwaivr0mjru coital; referred cardiologly for tilt table,other investigations if cthyza4NNY9;115in therapy;not bipolar per pzimfxgsw6ycoeczhv mood gamgxlniaefelb2noqn disorders questionnare;8seeing mental lgngor6btgcdusicxb,Dr carmona Diagnosis Diagnosis Type Effective Dates Health Status Clinical In formant Service H/O alcohol Discharge 07/10/21 abuse Diagnosis Vital Signs Most recent to oldest [Reference Range]: 1 Height 160 cm (07/10/21 8:55 AM) Social History Social History Type Response Smoking Status Never smoker entered on: 10/07/13 Sex
--- OUTSIDE RECORDS SUMMARY | 2022-11-25 22:44 | XMS_ITS | Continuity of Care Document ---
:1970 Author Organization [facility] Adult Address [address] [place] [address]- Care Team Providers Name Role Phone Charlene Terrazas NP Primary Care Physician Encounter [facility] [place] Date(s): 07/15/22 - 09/04/22 [facility] Adult [address] [place] [address]- Attending Physician: Prudencio MEEK, Raimundo Montes Referring Physician: Charlene Terrazas NP Allergies, Adverse Reactions, Alerts Substance Reaction Severity Status Seroquel Active Immunizations Given and Recorded Vaccine Date Status Refusal Reason SARS-CoV-2 mRNA (xvuiuri-wdoi-arwns) vax1 07/18/22 Record ed Influenza Virus Vaccine (oldterm)2 07/18/22 Recorded Influenza Virus Vaccine (oldterm)3 07/06/16 Given Influenza Virus Vaccine (oldterm)4 06/21/09 Given SARS-CoV-2 (COVID-19) mRNA BNT-162b2 vac 12/17/20 Recorde d SARS-CoV-2 (COVID-19) mRNA BNT-162b2 vac 11/21/20 Recorde d influenza virus vaccine, inactivated 07/27/18 Recorded influenza virus vaccine, inactivated 07/06/18 Recorded influenza virus vaccine, inactivated 07/21/17 Recorded influenza virus vaccine, inactivated 07/16/17 Recorded influenza virus vaccine, inactivated 07/13/15 Recorded influenza virus vaccine, inactivated5 07/06/13 Recorded influenza virus vaccine, inactivated6 06/29/10 Given tetanus-diphtheria toxoids (Td) 05/11/18 Given Measles/Mumps/Rubella Virus Vaccine 10/07/13 Given Measles/Mumps/Rubella Virus Vaccine 09/17/10 Given FluLaval (oldterm)7 8/14/12 Given FluLaval (oldterm) 06/29/10 Given Tet/Diphth/Acel, Pertussis (oldterm) 03/18/08 Given Tetanus Toxoid Vaccine (oldterm) 10/06/97 Given Not Given Vaccine Date Status Refusal Reason influenza virus vaccine, inactivated 07/05/18 Not Given Patient Refuses pneumococcal 23-valent vaccine 07/05/18 Not Given P atient Refuses 1Result Comment: [facility] Lmcubklq5Bukouv Comment: [facility] Jamuynml4Dbtpu Note: got at cyiq2Fgtiy Note: awtxwmuqc8Gxxgldcv History: [facility]6Result Comment: VKWAS3Uewzg Note: [facility] [employer] [facility] employer Medications Benadryl Tablet = [...] pain Patent foramen Confirmed Active ovale cortisone qnfvtcaka9ojwmivcq tilt table, fludrocortisone started per tntpcovwaa3ereu coital; referred cardiologly for tilt table,other investigations if ocphfq0AIL5;115in therapy;not bipolar per guovzrjss4iymkoxqp mood waxxxoxavdfxdf0ainc disorders questionnare;8seeing mental mofbwk5gqhhsprivdx,Dr carmona Social History Social History Type Response Smoking Status Never smoker entered on: 10/07/13 Sex Patient Care team information Care Team PersonnelName: Charlene Terrazas NP Position: [facility] PCO Associate Professional Member Role: PCP Address: Address: [address] [place] [address]- Name: Shanel Rojas RN Position: [facility] RN Member Role: Primary Care Nurse Name: Miri Marshall RN Position: [facility] OB RN Member Role: Primary Care Nurse Name: Darlene Rodriguez RN Position: [facility] RN Member Role: Primary Care Nurse Care Team Related PersonsName: SUNDAY STAFFORD Address: home [address] [place] [address] Name: VELASQUEZ MENDOZA Address: home [address] [place] [address] Name: CHRISTIE MALDONADO Address: home [address] [place] [address] Name: RICHARD MOLINA Address: home [address] [place] [address]
--- OUTSIDE RECORDS SUMMARY | 2022-11-25 22:44 | XMS_ITS | Continuity of Care Document ---
:1970 Author Organization [facility] Adult Address [address] [place] [address]- Care Team Providers Name Role Phone Raimundo Flannery MD Primary Care Physician Encounter [facility] [place] Date(s): 02/17/20 - 03/18/20 [facility] Adult [address] [place] [address]- [facility] Attending Physician: Raimundo Flannery MD Allergies, Adverse [...] Given P atient Refuses 1Location History: [facility]2Result Comment: [id number] Note: got at teyh6Ahbvq Note: zuvgihivp0Besui Note: [facility] [place] state [...] 1 each, 11 Refills, Maintenance, 11/28/15 10:07:00, [place], 2 sprays Nares, Both Daily,x30 days Start Date: 11/28/15 Stop Date: 11/22/16 Status: Orderedgabapentin 100 mg oral capsule 200 mg, 2, capsule, By Mouth, 3 times a day, # 180 capsule, Refills 1, Tot. Refills 1, Maintenance, 08/24/19 10:30:07 EST, Route to Pharmacy Electronically, [id number], [facility]/pharmacy #[id number] Start Date: 08/24/19 Status: OrderedMedrol 4 mg oral tablet 1 pack/packet, By Mouth, Daily, for 6 days, as directed on package labeling, # 21 tablet, 0 Refills,Acute 03/22/20 9:06:00 EDT, 03/16/20 9:06:00 EDT, [id number], 160, cm, 03/09/20 12:35:00 EDT, Height, 65.9, kg, 07/04/18 1:15:00 EDT,... Start Date: 03/16/20 Stop Date: 03/22/20 Status: Orderedprazosin 1 mg oral capsule 1 [...] 04/27/19 11:11:59 EDT, Route to Pharmacy Electronically, [id number], [facility]/pharmacy #[id number] Start Date: 04/27/19 Status: Ordered Problem List Condition Effective Dates Status Health Status Informant Abdominal pain(Confirmed) Active Bilateral carpal tunnel Active syndrome(Confirmed)1 Chronic constipation(Confirmed) Active Chronic rhinitis(Confirmed) Active Bilateral ovarian cysts(Confirmed) Active Acid reflux(Confirmed) Active H/O syncope(Confirmed)2, 3 Active H/O dizziness(Confirmed) Active H/O alcohol abuse(Confirmed) Active Insomnia(Confirmed) Active Nephrolithiasis(Confirmed)4 Active Lower extremity pain(Confirmed) Active Patent foramen ovale(Confirmed) Active cortisone slnwxudls2wsyvrxby tilt table, fludrocortisone started per vgarbiznau4imzi coital; referred cardiologly for tilt table,other investigations if derqqb8gqzrbpnwwkp,Dr carmona Social History Social History Type Response Smoking Status Never smoker entered on: 10/07/13 Sex
--- OUTSIDE RECORDS SUMMARY | 2022-11-25 22:44 | XMS_ITS | Continuity of Care Document ---
:1970 Author Organization [facility] Adult Address [address] [place] [address]- Care Team Providers Name Role Phone Nini Charlene ALEXANDRE Primary Care Physician Encounter [facility] [place] Date(s): 05/27/22 - 06/26/22 [facility] Adult [address] [place] [address]- Allergies, Adverse Reactions, Alerts Substance Reaction Severity [...] Given P atient Refuses 1Location History: [facility]2Result Comment: SFVJD2Byzxa Note: got at qgzt4Ugdgr Note: crcbyowdb6Ictjs Note: [facility]. employer Medications Benadryl Tablet = 25 [...] Date: 06/07/22 Status: Ordered Problem List Condition Effective Dates Status Health Status Informant Alcohol abuse(Confirmed) Active Bilateral carpal tunnel Active syndrome(Confirmed)1 Chronic constipation(Confirmed) Active Chronic dermatitis(Confirmed) Active Chronic rhinitis(Confirmed) Active Bilateral ovarian cysts(Confirmed) Active Generalized anxiety Active disorder(Confirmed) H/O syncope(Confirmed)2, 3 Active H/O dizziness(Confirmed) Active Insomnia(Confirmed) Active Depression, major(Confirmed)4, 5, 6, Active 7, 8 Nephrolithiasis(Confirmed)9 Active Lower extremity pain(Confirmed) Active Patent foramen ovale(Confirmed) Active cortisone gmzfxjato6zmqsvroa tilt table, fludrocortisone started per jtzhewnelz6nihn coital; referred cardiologly for tilt table,other investigations if omuiut9DIW8;115in therapy;not bipolar per xwghbntgu3foeqabgt mood lccfabadtifydo6ypjl disorders questionnare;8seeing mental dckxcw1vxjjqocdywy,Dr carmona Social History Social History Type Response Smoking Status Never smoker entered on: 10/07/13 Sex Care Team PersonnelName: Charlene Terrazas NP Address: [address] [place] [address] [place] [address]-
--- OUTSIDE RECORDS SUMMARY | 2022-11-25 22:44 | XMS_ITS | Continuity of Care Document ---
:[address] [facility] Adult Address [address] [place] [address]- Care Team Providers Name Role Phone Prudencio MEEK, Raimundo Montes Primary Care Physician Encounter [facility] Date(s): 06/06/20 - 07/06/20 [facility] Adult [address] [place] [address]- [facility] Allergies, Adverse Reactions, Alerts Substance Reaction Severity [...] Not Given P atient Refuses 1Location History: [facility]2Result Comment: UGISO9Zoxmd Note: got at dfrl0Rxymo Note: jeavmkidz3Xuzmx Note: [facility]. employer Medications Benadryl Tablet = 25 mg, By Mouth, Daily at bedtime, 0 Refills, Maintenance, 06/16/15 15:31:35 Start Date: 06/16/15 Status: Orderedbetamethasone topical dipropionate 0.05% ointment 1 application, Topically, 2 times a day, # 45 Gm, 1 Refills, Maintenance, 03/16/20 9:06:00 EDT, Ointment, [facility]/pharmacy #[id number], 1 application Topically 2 times a day, 160, cm, 03/09/20 12:35:00 EDT, Height, 65.9, kg, 07/04/18 1:15:00 EDT, Dry Weight Start Date: 03/16/20 Status: OrderedFlonase 50 mcg/inh nasal spray 2 sprays, Nares, Both, Daily, # 1 each, 11 Refills, Maintenance, 11/28/15 10:07:00, [place], 2 sprays Nares, Both Daily,x30 days Start Date: 11/28/15 Stop Date: 11/22/16 Status: Orderedgabapentin 100 mg oral capsule 200 mg, 2, capsule, By Mouth, 3 times a day, # 180 capsule, Refills 1, Tot. Refills 1, Maintenance, 08/24/19 10:30:07 EST, Route to Pharmacy Electronically, [id number], [facility]/pharmacy #[id number] Start Date: 08/24/19 Status: Orderedprazosin 1 mg oral capsule 1 mg, 1, capsule, By Mouth, Daily at bedtime, # 90 capsule, Refills 0, Tot. Refills 0, Maintenance, 02/15/20 7:19:00 EDT, Route to Pharmacy Electronically, [facility]/pharmacy #[id number], 160, cm, 07/15/19 10:05:00 EDT, Height, 65.9, kg, 07/04/18 1:15:00 EDT, Dry... Start Date: 02/15/20 Status: Orderedtacrolimus 0.1% topical ointment 1 applicator, Topically, 2 times a day, apply sparingly and rub in well, # 30 Gm, 0 Refills, Maintenance, 07/05/20 15:48:00 EDT, Ointment, [facility]/pharmacy #[id number], 1 applicator Topically 2 times a day,Instr:apply sparingly and rub in well, 160, cm, ... Start Date: 07/05/20 Status: Orderedvenlafaxine 150 mg oral capsule, extended release 150 mg, 1, capsule, By Mouth, Daily, # 30 capsule, Refills 5, Tot. Refills 5, Maintenance, 07/05/20 12:49:00 EDT, Route to Pharmacy Electronically, [facility]/pharmacy #[id number], 160, cm, 03/09/20 12:35:00 EDT, Height, [...] pain(Confirmed) Active Patent foramen ovale(Confirmed) Active cortisone fpqcnqzyk1cyhcywqc tilt table, fludrocortisone started per aqzsrxevsn9bzlo coital; referred cardiologly for tilt table,other investigations if unfdby5ipzdgahkrbd,Dr swanson Social History Social History Type Response Smoking Status Never smoker entered on: 10/07/13 Sex
--- OUTSIDE RECORDS SUMMARY | 2022-11-25 22:44 | XMS_ITS | Continuity of Care Document ---
:1970 Author Organization [facility] Adult Address [address] [place] [address]- Care Team Providers Name Role Phone Nini Charlene ALEXANDRE Primary Care Physician Encounter [facility] [place] Date(s): 10/02/21 - 11/01/21 [facility] Adult [address] [place] [address]- Attending Physician: Admtr, Ar8 Allergies, Adverse Reactions, [...] Not Given P atient Refuses 1Location History: [facility]2Result Comment: [id number] Note: got at yctr2Dbclf Note: ihxoyqmmn5Kjqdr Note: [employer] employer Medications Benadryl Tablet = 25 mg, [...] pain(Confirmed) Active Patent foramen ovale(Confirmed) Active cortisone xozyztruw0uozjmkiz tilt table, fludrocortisone started per uurcrsgoxd2vocd coital; referred cardiologly for tilt table,other investigations if jhkesi4OEN5;115in therapy;not bipolar per iggdqiuqo1qqckzxjo mood gsbuaakxakqzrw6dsae disorders questionnare;8seeing mental tlzfjc5vxksdrlktal,Dr carmona Procedures Procedure Date Related Diagnosis Body Site Status Computed tomography, abdomen and 11/06/12 Completed pelvis; without contrast material1 Computed tomography, abdomen; with 09/25/10 Completed contrast material(s)2 Duplex scan of extremity veins 11/29/09 Completed including responses to compression and other maneuvers; complete bilateral study3 Echocardiogram4 04/16/08 Completed 1nonobstruting bilateral renal calculi,no wrymizlbgftgnj17 mm obstructing renal ston e,mild hydronephrosis, bilateral hobsomc2svgz lowertr EXt no DVT or pspm3mf 55%, PFO not well demonstarted Social History Social History Type Response Smoking Status Never smoker entered on: 10/07/13 Sex
--- OUTSIDE RECORDS SUMMARY | 2022-11-25 22:44 | XMS_ITS | Continuity of Care Document ---
:1970 Author Organization [facility] Adult Address [address] [place] [address]- Care Team Providers Name Role Phone Charlene Terrazas NP Primary Care Physician Encounter [facility] [place] Date(s): 05/25/21 - 06/01/21 [facility] Adult [address] [place] [address]- Encounter Diagnosis Recurrent major depression (Discharge Diagnosis) - 05/24/21 Post traumatic stress disorder (PTSD) (Discharge Diagnosis) - 05/24/21 H/O alcohol abuse (Discharge Diagnosis) - 05/25/21 Chronic dermatitis (Discharge Diagnosis) - 05/25/21 Irregular menstrual bleeding (Discharge Diagnosis) - 05/25/21 Hypercholesterolemia (Discharge Diagnosis) - 05/25/21 Encounter for screening mammogram for breast cancer (Discharge Diagnosis) - 05/25/21 Attending Physician: Miri Nguyen NP Referring Physician: Charlene Terrazas NP Allergies, Adverse [...] Given P atient Refuses 1Location History: [facility]2Result Comment: IJHGF2Gumuf Note: got at vruz5Drxtl Note: vmhvacwej2Evkmb Note: [facility] employer Medications Benadryl Tablet = 25 mg, By Mouth, Daily at bedtime, 0 Refills, Maintenance, 06/16/15 15:31:35 Start Date: 06/16/15 Status: Orderednaltrexone 50 mg oral tablet 1 tablet = 50 mg, By Mouth, Daily, # 30 tablet, 0 Refills, Maintenance, 05/30/21 10:05:00 EDT, Tablet, [facility]/pharmacy #[id number], 160, cm, 05/30/21 9:38:00 EDT, Height, 72.8, kg, 03/13/21 17:00:00 EDT, Dry Weight Start Date: 05/30/21 Stop Date: 06/29/21 Status: Orderedtriamcinolone 0.025% topical cream 1 application, Topically, 2 times a day, for 14 days, # 60 Gm, 0 Refills, Acute 06/08/21 14:34:00 EDT, 05/25/21 14:34:00 EDT, Cream, [facility]/pharmacy #[id number], Partial fill upon patient request if [...] pain(Confirmed) Active Patent foramen ovale(Confirmed) Active cortisone flrnzqpaq5fmmvuqcr tilt table, fludrocortisone started per zrispexxli0pmcn coital; referred cardiologly for tilt table,other investigations if dkwdjx7ZDO4;115in therapy;not bipolar per ajyltfhag0ugquxspe mood opcjzoueaeifir6dtev disorders questionnare;8seeing mental jqckec2ijdhvxshchw,Dr carmona Diagnosis Diagnosis Type Effective Health Clinical Informant Dates Status Service Recurrent major Discharge 05/24/21 depression Diagnosis Post traumatic stress Discharge 05/24/21 disorder (PTSD) Diagnosis Chronic dermatitis Discharge 05/25/21 Diagnosis Encounter for screening Discharge 05/25/21 mammogram for breast Diagnosis cancer Irregular menstrual Discharge 05/25/21 bleeding Diagnosis Hypercholesterolemia Discharge 05/25/21 Diagnosis H/O alcohol abuse Discharge 05/25/21 Diagnosis Vital Signs Most recent to oldest [Reference Range]: 1 2 Height 160 cm 160 cm (05/25/21 2:50 PM) (05/25/21 2:17 PM) Weight 72.9 kg (05/25/21 2:17 PM) Oxygen Saturation [94-100 %] 98 % (05/25/21 2:17 PM) Pulse Rate [55-90 bpm] 87 bpm (05/25/21 2:17 PM) Body Mass Index [18.5-24.99] 28.48 *H* (05/25/21 2:17 PM) Blood Pressure [90-138/55-84 mm Hg] 132/78 mm Hg 130/ 90 mm Hg (05/25/21 2:50 PM) (05/25/21 2:17 PM) Temperature [96.8-100.4 DegF] 98.1 DegF (05/25/21 2:17 PM) Blood pressure sites Arm, left Arm, left (05/25/21 2:50 PM) (05/25/21 2:17 PM) Temperature Route Oral (05/25/21 2:17 PM) Weight Obtained Via Standing scale (05/25/21 2:17 PM) Social History Social History Type Response Smoking Status Never smoker entered on: 10/07/13 Sex
--- OUTSIDE RECORDS SUMMARY | 2022-11-25 22:44 | XMS_ITS | Continuity of Care Document ---
:1970 Author Organization [facility] Address [address] [facility], [facility] [address] [place] [address]- Care Team Providers Name Role Phone Nini ALEXANDRE, Charlene Fair Primary Care Physician Encounter 07/11/22 - 07/18/22 [facility] [address], [address] [place] [address]- Attending Physician: Charlene Terrazas NP Admitting Physician: Charlene Terrazas NP Referring Physician: Charlene Terrazas NP Allergies, [...] Not Given P atient Refuses 1Location History: [facility]2Result Comment: AMNYD7Ixqxf Note: got at ntpj3Fngif Note: nbhvvuarg5Nmsbk Note: [facility]. employer Medications Benadryl Tablet = 25 [...] pain Patent foramen Confirmed Active ovale cortisone ppflpcryd3fcowtwfk tilt table, fludrocortisone started per mdxjmkebxp6yyys coital; referred cardiologly for tilt table,other investigations if gxrcwe1OHA6;115in therapy;not bipolar per qtkjsdbwb5amgypesf mood nninsxpknqkche0snch disorders questionnare;8seeing mental dobhbd9tivwqlqzdkx,Dr swanson Social History Social History Type Response Smoking Status Never smoker entered on: 10/07/13 Sex Patient Care team information PersonnelName: Charlene Terrazas NP Address: Address: [address] [place] [id number]
--- OUTSIDE RECORDS SUMMARY | 2022-11-25 22:44 | XMS_ITS | Continuity of Care Document ---
:1970 Author Organization [facility] Adult Address [address] [place] [address]- Care Team Providers Name Role Phone Prudencio MEEK, Raimundo Montes Primary Care Physician Encounter [facility] [place] Date(s): 04/10/20 - 05/10/20 [facility] Adult [address] [place] [address]- [facility] Allergies, Adverse Reactions, Alerts Substance Reaction [...] Not Given P atient Refuses 1Location History: [facility]2Result Comment: EWSVX3Dgzdc Note: got at girv1Lmaht Note: jqwlohnlp3Sjnum Note: [facility] Medications Benadryl Tablet = 25 mg, By Mouth, Daily at bedtime, 0 Refills, Maintenance, 06/16/15 15:31:35 Start Date: 06/16/15 Status: Orderedbetamethasone topical dipropionate 0.05% ointment 1 application, Topically, 2 times a day, # 45 Gm, 1 Refills, Maintenance, 03/16/20 9:06:00 EDT, Ointment, [facility]/pharmacy #[id number], 1 application Topically 2 times a day, 160, cm, 03/09/20 12:35:00 EDT, Height, 65.9, kg, 07/04/18 1:15:00 EDT, Dry Weight Start Date: 03/16/20 Status: OrderedFlonase 50 mcg/inh nasal spray 2 sprays, Nares, Both, Daily, # 1 each, 11 Refills, Maintenance, 11/28/15 10:07:00, [place], 2 sprays Nares, Both Daily,x30 days Start Date: 11/28/15 Stop Date: 11/22/16 Status: Orderedgabapentin 100 mg oral capsule 200 mg, 2, capsule, By Mouth, 3 times a day, # 180 capsule, Refills 1, Tot. Refills 1, Maintenance, 08/24/19 10:30:07 EST, Route to Pharmacy Electronically, [id number], [facility]/pharmacy #[id number] Start Date: 08/24/19 Status: Orderedprazosin 1 mg oral capsule 1 mg, 1, capsule, By Mouth, Daily at bedtime, # 90 capsule, Refills 0, Tot. Refills 0, Maintenance, 02/15/20 7:19:00 EDT, Route to Pharmacy Electronically, [facility]/pharmacy #[id number], 160, cm, 07/15/19 10:05:00 [...] 04/10/20 16:21:00 EDT, Route to Pharmacy Electronically, [facility]/pharmacy #[id number], 160, cm, 03/09/20 12:35:00 [...] pain(Confirmed) Active Patent foramen ovale(Confirmed) Active cortisone hwgyncecz1ghousmnn tilt table, fludrocortisone started per cnmookknde9xnzh coital; referred cardiologly for tilt table,other investigations if tpvctz5arpgqdabnod,Dr carmona Social History Social History Type Response Smoking Status Never smoker entered on: 10/07/13 Sex
--- OUTSIDE RECORDS SUMMARY | 2022-11-25 22:44 | XMS_ITS | Continuity of Care Document ---
:1970 Author Organization [facility] Address [address] [place] [address]- Care Team Providers Name Role Phone Raimundo Flannery MD Primary Care Physician Encounter [facility] [place] [facility] Date(s): 09/01/19 - 12/23/19 [facility] [address] [place] [address] [facility] Attending Physician: Elinor Thomas MD Admitting Physician: Elinor Thomas MD Referring Physician: Raimundo Flannery MD Allergies, Adverse [...] atient Refuses 1Location History: [facility]2Result Comment: OZXNC9Vekcu Note: got at owen7Zmbkn Note: homapirym7Lmvkl Note: [facility]. employer Medications Benadryl Tablet = [...] 1 each, 11 Refills, Maintenance, 11/28/15 10:07:00, [place], 2 sprays Nares, Both Daily,x30 days Start Date: 11/28/15 Stop Date: 11/22/16 Status: Orderedgabapentin 100 mg oral capsule 200 mg, 2, capsule, By Mouth, 3 times a day, # 180 capsule, Refills 1, Tot. Refills 1, Maintenance, 08/24/19 10:30:07 EST, Route to Pharmacy Electronically, [id number], [id number] Start Date: 08/24/19 Status: Orderedtacrolimus 0.1% topical ointment 1 application, Topically, 2 times a day, # 30 Gm, 0 Refills, Maintenance, 02/17/19 12:04:43 EDT, Ointment Start Date: 02/17/19 Status: Orderedvenlafaxine 150 mg oral capsule, extended release 150 mg, 1, capsule, By Mouth, Daily, # 30 capsule, Refills 3, Tot. Refills 3, Maintenance, 04/27/19 11:11:59 EDT, Route to Pharmacy Electronically, [id number], [id number] Start Date: 04/27/19 Status: Ordered Problem List Condition Effective Dates Status Health Status Informant Abdominal pain(Confirmed) Active Anxiety(Confirmed) Active Bilateral carpal tunnel Active syndrome(Confirmed)1 Chronic constipation(Confirmed) Active Chronic rhinitis(Confirmed) Active Bilateral ovarian cysts(Confirmed) Active Acid reflux(Confirmed) Active H/O syncope(Confirmed)2, 3 Active H/O dizziness(Confirmed) Active H/O alcohol abuse(Confirmed) Active Insomnia(Confirmed) Active Nephrolithiasis(Confirmed)4 Active Lower extremity pain(Confirmed) Active Patent foramen ovale(Confirmed) Active cortisone rcucgkhpo6gyhazvsx tilt table, fludrocortisone started per uualuvxbxb7qkpy coital; referred cardiologly for tilt table,other investigations if pczmxp1zboaeltuciw,Dr carmona Social History Social History Type Response Smoking Status Never smoker entered on: 10/07/13 Sex
--- OUTSIDE RECORDS SUMMARY | 2022-11-25 22:44 | XMS_ITS | Continuity of Care Document ---
:1970 Author Organization [facility] Adult Address [address] [place] [address]- Care Team Providers Name Role Phone Nini Charlene ALEXANDRE Primary Care Physician Encounter [facility] Date(s): 07/23/22 - 08/22/22 [facility] Adult [address] [place] [address]- Allergies, Adverse Reactions, Alerts Substance Reaction Severity Status Seroquel Active Immunizations Given and Recorded Vaccine Date Status Refusal Reason SARS-CoV-2 mRNA (odimwhy-dtux-nuprh) vax1 07/18/22 Record ed Influenza Virus Vaccine [...] Measles/Mumps/Rubella Virus Vaccine 09/17/10 Given FluLaval (oldterm)7 05/19/12 Given FluLaval (oldterm) 06/29/10 Given Tet/Diphth/Acel, Pertussis (oldterm) 03/18/08 Given Tetanus Toxoid Vaccine (oldterm) 10/06/97 Given Not Given Vaccine Date Status Refusal Reason influenza virus vaccine, inactivated 07/05/18 Not Given Patient Refuses pneumococcal 23-valent vaccine 07/05/18 Not Given P atient Refuses 1Result Comment: [facility] Ncqfnyvg8Dqtxih Comment: [facility] Iaqhvdsr8Mgbug Note: got at uyym6Duicv Note: udeaeiwod5Fguzazdp History: [facility]6Result Comment: [id number] Note: [facility] employ Medications Benadryl Tablet = 25 mg, By Mouth, Daily at bedtime, 0 Refills, Maintenance, 06/16/15 15:31:35 Start Date: 06/16/15 Status: Orderedomeprazole 20 mg oral delayed release tablet 1 tablet = 20 mg, By Mouth, Daily, # 90 tablet, 1 Refills, Maintenance, 06/07/22 11:09:00 EDT, [facility]/pharmacy #[id number], 160, cm, 06/07/22 10:58:00 EDT, Height, [...] pain Patent foramen Confirmed Active ovale cortisone cafsyszsu8twbwagfl tilt table, fludrocortisone started per mivnoyhysh6eqsr coital; referred cardiologly for tilt table,other investigations if tcodix4JMW7;115in therapy;not bipolar per cpcfdkqqp9wvnkkejv mood lqaaqabtydybjr0ymfw disorders questionnare;8seeing mental sfrozo7sypmwgtlggm,Dr carmona Social History Social History Type Response Smoking Status Never smoker entered on: 10/07/13 Sex Patient Care team information Care Team PersonnelName: Charlene Terrazas NP Position: [facility] Associate Professional Member Role: PCP Address: Address: [address] [place] [address]- Name: Shanel Rojas RN Position: S RN Member Role: Primary Care Nurse Name: Miri Marshall RN Position: S OB RN Member Role: Primary Care Nurse Name: Darlene Rodriguez RN Position: S RN Member Role: Primary Care Nurse Care Team Related PersonsName: SUNDAY STAFFORD Address: home [address] [place] [address] Name: VELASQUEZ MENDOZA Address: home [address] [place] [address] Name: CHRISTIE MALDONADO Address: home [address] [place] [address] Name: RICHARD MOLINA Address: home [address] [place] [address]
--- OUTSIDE RECORDS SUMMARY | 2022-11-25 22:44 | XMS_ITS | Continuity of Care Document ---
:1970 Author Organization [facility] Adult Address [address] [place] [address]- Care Team Providers Name Role Phone Nini Charlene ALEXANDRE Primary Care Physician [place] [facility] [place]07[place]22 - 06/14/22 [facility] Adult [address] [place] [address]- Encounter Diagnosis Depression, major (Discharge Diagnosis) - 06/07/22 Generalized anxiety disorder (Discharge Diagnosis) - 06/07/22 Alcohol abuse (Discharge Diagnosis) - 06/07/22 Chronic dermatitis (Discharge Diagnosis) - 06/07/22 Gastro-esophageal reflux (Discharge Diagnosis) - 06/07/22 Attending Physician: Not on Staff, Attending MD [...] Refuses 1Location History: [facility]2Result Comment: [id number] Note: got at eoph6Upozk Note: kyjekpetl8Fgkiq Note: [facility] employer Medications Benadryl Tablet = 25 [...] pain(Confirmed) Active Patent foramen ovale(Confirmed) Active cortisone hzssabebk2cpamzidq tilt table, fludrocortisone started per vvtkzkpkvb1ysri coital; referred cardiologly for tilt table,other investigations if excqsq8TGR3;115in therapy;not bipolar per ivduuywuu6urfzmeig mood nraifpqggwbype6jzhj disorders questionnare;8seeing mental sufywn3bkbhcvtzfel,Dr carmona Diagnosis Diagnosis Type Effective Dates Health Clinical Infor mant Status Service Depression, major Discharge 06/07/22 Diagnosis Generalized Discharge 06/07/22 anxiety disorder Diagnosis Alcohol abuse Discharge 06/07/22 Diagnosis Chronic dermatitis Discharge 06/07/22 Diagnosis Gastro-esophageal Discharge 06/07/22 reflux Diagnosis Vital Signs Most recent to oldest [Reference Range]: 1 Height 160 cm (06/07/22 10:58 AM) Weight 73.9 kg (06/07/22 10:58 AM) Pulse Rate [55-90 bpm] 80 bpm (06/07/22 10:58 AM) Body Mass Index [18.5-24.99] 28.87 *H* (06/07/22 10:58 AM) Blood Pressure [90-138/55-84 mm Hg] 116/78 mm Hg (06/07/22 10:58 AM) Blood pressure sites Arm, left (06/07/22 10:58 AM) Weight Obtained Via Standing scale (06/07/22 10:58 AM) Social History Social History Type Response Smoking Status Never smoker entered on: 10/07/13 Sex Care Team PersonnelName: Nini ALEXANDRE, Charlene Fair Address: [address] [place] [address] Adult [place], [place] [address]
--- OUTSIDE RECORDS SUMMARY | 2022-11-25 22:44 | XMS_ITS | Continuity of Care Document ---
:1970 Author Organization [facility] Adult Address [address] [place] [address]- Care Team Providers Name Role Phone Nini Charlene ALEXANDRE Primary Care Physician Encounter [facility] Date(s): 08/10/21 - 09/09/21 [facility] Adult [address] [place] [address]- Allergies, Adverse Reactions, Alerts Substance Reaction Severity [...] P atient Refuses 1Location [place] baeyfqxw4Cezujr Comment: [id number] Note: got at omfy0Jgrpn Note: mfutagiix4Eiwjn Note: [facility]. employer Medications Benadryl Tablet = 25 mg, By Mouth, Daily at bedtime, 0 Refills, Maintenance, 06/16/15 15:31:35 Start Date: 06/16/15 Status: Orderednaltrexone 50 mg oral tablet 1 tablet = 50 mg, By Mouth, Daily, # 30 tablet, 1 Refills, Maintenance, 07/10/21 8:59:00 EDT, Tablet, [facility]/pharmacy #[id number], 160, cm, 07/10/21 8:55:00 EDT, Height, 72.8, kg, 03/13/21 17:00:00 EDT, Dry Weight Start Date: 07/10/21 Stop Date: 09/08/21 Status: Orderedvenlafaxine 150 mg oral capsule, extended release 150 mg, 1, capsule, By Mouth, Daily, for 30 days, # 30 capsule, Refills 2, Tot. Refills 2, Acute 09/27/21 13:08:00 EST, 06/29/21 13:08:00 EDT, Route to Pharmacy Electronically, [id number], 160,cm, 05/30/21 9:38:00 EDT, Height, 72.8, [...] pain(Confirmed) Active Patent foramen ovale(Confirmed) Active cortisone voyxizhvo5jtojshdm tilt table, fludrocortisone started per ytbbqufxfd7uwad coital; referred cardiologly for tilt table,other investigations if ewnjrb7LAT1;115in therapy;not bipolar per tsripzidg4krwgwnoi mood qweelfdxmszzyf4tpbd disorders questionnare;8seeing mental iaflnw8fbgvwvuhkxr,Dr carmona Social History Social History Type Response Smoking Status Never smoker entered on: 10/07/13 Sex
--- OUTSIDE RECORDS SUMMARY | 2022-11-25 22:44 | XMS_ITS | Continuity of Care Document ---
:1970 Author Organization [facility] Adult Address [address] [place] [address]- Care Team Providers Name Role Phone Raimundo Flannery MD Primary Care Physician Encounter [facility] Date(s): 12/25/20 - 01/01/21 [facility] Adult [address] [place] [address]- Encounter Diagnosis Depression, major (Discharge Diagnosis) - 12/25/20 Chronic dermatitis (Discharge Diagnosis) - 12/25/20 Attending Physician: Raimundo Flannery MD Referring Physician: Charlene Terrazas NP Allergies, [...] Given P atient Refuses 1Location History: [facility]2Result Comment: [id number] Note: got at xucl1Amnnf Note: gudmzwzbf1Mhfjd Note: [facility]. employer Medications Benadryl Tablet = 25 [...] 1 each, 11 Refills, Maintenance, 11/28/15 10:07:00, [place], 2 sprays Nares, Both Daily,x30 days Start Date: 11/28/15 Stop Date: 11/22/16 Status: Orderedgabapentin 100 mg oral capsule 200 mg, 2, capsule, By Mouth, 3 times a day, # 180 capsule, Refills 1, Tot. Refills 1, Maintenance, 08/24/19 10:30:07 EST, Route to Pharmacy Electronically, [id number], [id number] Start Date: 08/24/19 Status: Orderedtacrolimus 0.1% topical ointment 1 application, Topically, 2 times a day, INSTR:APPLY SPARINGLY AND RUB IN WELL, # 30 Gm, 1 Refills, Maintenance, 12/25/20 12:58:00 EDT, [id number], 30, 1 application Topically 2 times a day,Instr:INSTR:APPLY SPARINGLY AND RUB IN WELL, 160, cm,... Start Date: 12/25/20 Status: Orderedvenlafaxine 150 mg oral capsule, extended release 150 mg, 1, capsule, By Mouth, Daily, # 30 capsule, Refills 1, Tot. Refills 1, Maintenance, 12/25/20 12:57:00 EDT, Route to Pharmacy Electronically, [facility]/pharmacy #[id number], 160, cm, 12/25/20 11:07:00 EDT, Height [...] pain(Confirmed) Active Patent foramen ovale(Confirmed) Active cortisone apcvtvvcm2iiyhkxla tilt table, fludrocortisone started per qltwoejwxs8ujkg coital; referred cardiologly for tilt table,other investigations if qpnyya2HKZ9;115in therapy;not bipolar per korrjusll9jrgjfjtx mood sdxsxwbgqzvmpu1kbsz disorders questionnare;8seeing mental amtlps0brzdttjbcci,Dr carmona Diagnosis Diagnosis Type Effective Dates Health Clinical Infor mant Status Service Depression, major Discharge 12/25/20 Diagnosis Chronic Discharge 12/25/20 dermatitis Diagnosis Vital Signs Most recent to oldest [Reference Range]: 1 Height 160 cm (12/25/20 11:07 AM) Social History Social History Type Response Smoking Status Never smoker entered on: 10/07/13 Sex
--- OUTSIDE RECORDS SUMMARY | 2022-11-25 22:44 | XMS_ITS | Continuity of Care Document ---
:1970 Author Organization [facility] [place] Adult Address [address] [place] [address]- Care Team Providers Name Role Phone Nini Charlene ALEXANDRE Primary Care Physician En[place] [facility] Date(s): 03/06/22 - 04/05/22 [facility] [place] [address] [place] [address]- Attending Physician: Admtr, Ar8 Allergies, Adverse Reactions, [...] atient Refuses 1Location History: [facility]2Result Comment: [id number] Note: got at yllt2Gbhih Note: hizfqidye3Uurcz Note: [facility]. employer Medications Benadryl Tablet = 25 [...] pain(Confirmed) Active Patent foramen ovale(Confirmed) Active cortisone yzuzmvwrw6lwmrevkv tilt table, fludrocortisone started per eznqekwtaq2zorg coital; referred cardiologly for tilt table,other investigations if sezpyg1THZ9;115in therapy;not bipolar per rgnomhikt9dinreqom mood qiqvanxcbldnmu6xfei disorders questionnare;8seeing mental rjbtqo8fyxakjmnepg,Dr carmona Procedures Procedure Date Related Diagnosis Body Site Status Computed tomography, abdomen and 11/06/12 Completed pelvis; without contrast material1 Computed tomography, abdomen; with 09/25/10 Completed contrast material(s)2 Duplex scan of extremity veins 11/29/09 Completed including responses to compression and other maneuvers; complete bilateral study3 Echocardiogram4 04/16/08 Completed 1nonobstruting bilateral renal calculi,no xunjjcyvtndvbw86 mm obstructing renal ston e,mild hydronephrosis, bilateral afnwoqx2oouc lowertr EXt no DVT or hcqr2zp 55%, PFO not well demonstarted Social History Social History Type Response Smoking Status Never smoker entered on: 10/07/13 Sex
--- OUTSIDE RECORDS SUMMARY | 2022-11-25 22:44 | XMS_ITS | Continuity of Care Document ---
:1970 Author Organization [facility] Address [address] [place] [address]- Care Team Providers Name Role Phone Prudencio MEEK, Raimundo Montes Primary Care Physician Encounter [facility] Date(s): 11/23/19 - 12/03/19 [facility] [address] [place] [address] [facility] Attending Physician: Meghna Guido Admitting Physician: AdmMeghna monson Referring Physician: AdmtrMeghna Allergies, Adverse Reactions, Alerts Substance Reaction Severity [...] 1Location History: [facility]2Result Comment: PYNCW0Tmuxi Note: got at hpht0Chfvc Note: xywioebek6Icuul Note: [facility]. employer Medications Benadryl Tablet = [...] 1 each, 11 Refills, Maintenance, 11/28/15 10:07:00, [place], 2 sprays Nares, Both Daily,x30 days Start Date: 11/28/15 Stop Date: 11/22/16 Status: Orderedgabapentin 100 mg oral capsule 200 mg, 2, capsule, By Mouth, 3 times a day, # 180 capsule, Refills 1, Tot. Refills 1, Maintenance, 08/24/19 10:30:07 EST, Route to Pharmacy Electronically, [id number], [facility]/pharmacy #[id number] Start Date: 08/24/19 Status: Orderedtacrolimus 0.1% topical ointment 1 application, Topically, 2 times a day, # 30 Gm, 0 Refills, Maintenance, 02/17/19 12:04:43 EDT, Ointment Start Date: 02/17/19 Status: Orderedvenlafaxine 150 mg oral capsule, extended release 150 mg, 1, capsule, By Mouth, Daily, # 30 capsule, Refills 3, Tot. Refills 3, Maintenance, 04/27/19 11:11:59 EDT, Route to Pharmacy Electronically, [id number], [id number] Start Date: 04/27/19 Status: Ordered Problem List Condition Effective Dates Status Health Status Informant Abdominal pain(Confirmed) Active Anxiety(Confirmed) Active Bilateral carpal tunnel Active syndrome(Confirmed)1 Chronic constipation(Confirmed) Active Chronic rhinitis(Confirmed) Active Bilateral ovarian cysts(Confirmed) Active Acid reflux(Confirmed) Active H/O syncope(Confirmed)2, 3 Active H/O dizziness(Confirmed) Active H/O alcohol abuse(Confirmed) Active Insomnia(Confirmed) Active Nephrolithiasis(Confirmed)4 Active Lower extremity pain(Confirmed) Active Patent foramen ovale(Confirmed) Active cortisone dgpjsrywb4pbtdaamc tilt table, fludrocortisone started per fkadmdikwe5imzq coital; referred cardiologly for tilt table,other investigations if zclrom0zxkxfupsnqj,Dr carmona Social History Social History Type Response Smoking Status Never smoker entered on: 10/07/13 Sex
--- OUTSIDE RECORDS SUMMARY | 2022-11-25 22:44 | XMS_ITS | Continuity of Care Document ---
:1970 Author Organization [facility] Adult Address [address] [place] [address]- Care Team Providers Name Role Phone Nini Charlene ALEXANDRE Primary Care Physician Encounter [facility] Date(s): 05/13/22 - 06/12/22 [facility] Adult [address] [place] [address]- Allergies, Adverse Reactions, Alerts Substance Reaction Severity [...] Given P atient Refuses 1Location History: [facility]2Result Comment: [id number] Note: got at uokg1Pysjh Note: cvghtxofg3Bfadw Note: [facility]. employer Medications Benadryl Tablet = [...] pain(Confirmed) Active Patent foramen ovale(Confirmed) Active cortisone qjqtibytx4nvwydqmj tilt table, fludrocortisone started per wuftfrfpta2hoen coital; referred cardiologly for tilt table,other investigations if seuyfa5DQE4;115in therapy;not bipolar per lwyuihibu2uxodtfaj mood uphiqqclmqqzam2qgqy disorders questionnare;8seeing mental zgaupo2nhlwxbihabp,Dr swanson Social History Social History Type Response Smoking Status Never smoker entered on: 10/07/13 Sex Care Team PersonnelName: Charlene Terrazas NP Address: [address] [place] [id number]
--- OUTSIDE RECORDS SUMMARY | 2022-11-25 22:44 | XMS_ITS | Continuity of Care Document ---
:1970 Author Organization [facility] Adult Address [address] [place] [address]- Care Team Providers Name Role Phone Prudencio MEEK, Raimundo Montes Primary Care Physician Encounter [facility] Date(s): 06/06/20 - 07/06/20 [facility] Adult [address] [place] [address]- [facility] Allergies, Adverse Reactions, Alerts Substance Reaction [...] Not Given P atient Refuses 1Location History: [facility]2Result Comment: [id number] Note: got at bslj5Vxqcx Note: qtpgqwlup6Nxhbo Note: [facility]. employer Medications Benadryl Tablet = 25 mg, By Mouth, Daily at bedtime, 0 Refills, Maintenance, 06/16/15 15:31:35 Start Date: 06/16/15 Status: Orderedbetamethasone topical dipropionate 0.05% ointment 1 application, Topically, 2 times a day, # 45 Gm, 1 Refills, Maintenance, 03/16/20 9:06:00 EDT, Ointment, [facility]/pharmacy #[id number], 1 application Topically 2 times a day, 160, cm, 03/09/20 12:35:00 EDT, Height, 65.9, kg, 07/04/18 1:15:00 EDT, Dry Weight Start Date: 03/16/20 Status: OrderedFlonase 50 mcg/inh nasal spray 2 sprays, Nares, Both, Daily, # 1 each, 11 Refills, Maintenance, 11/28/15 10:07:00, [employer], 2 sprays Nares, Both Daily,x30 days Start Date: 11/28/15 Stop Date: 11/22/16 Status: Orderedgabapentin 100 mg oral capsule 200 mg, 2, capsule, By Mouth, 3 times a day, # 180 capsule, Refills 1, Tot. Refills 1, Maintenance, 08/24/19 10:30:07 EST, Route to Pharmacy Electronically, [id number], [facility]/pharmacy #[id number] Start Date: 08/24/19 Status: Orderedprazosin 1 mg oral capsule 1 mg, 1, capsule, By Mouth, Daily at bedtime, # 90 capsule, Refills 0, Tot. Refills 0, Maintenance, 02/15/20 7:19:00 EDT, Route to Pharmacy Electronically, [facility]/pharmacy #[id number], 160, cm, 07/15/19 10:05:00 EDT, Height, 65.9, kg, 07/04/18 1:15:00 EDT, Dry... Start Date: 02/15/20 Status: Orderedtacrolimus 0.1% topical ointment 1 applicator, Topically, 2 times a day, apply sparingly and rub in well, # 30 Gm, 0 Refills, Maintenance, 07/05/20 15:48:00 EDT, Ointment, [facility]/pharmacy #[id number], 1 applicator Topically 2 times a day,Instr:apply sparingly and rub in well, 160, cm, ... Start Date: 07/05/20 Status: Orderedvenlafaxine 150 mg oral capsule, extended release 150 mg, 1, capsule, By Mouth, Daily, # 30 capsule, Refills 5, Tot. Refills 5, Maintenance, 07/05/20 12:49:00 EDT, Route to Pharmacy Electronically, [facility]/pharmacy #[id number], 160, cm, 03/09/20 12:35:00 EDT, [...] pain(Confirmed) Active Patent foramen ovale(Confirmed) Active cortisone crbmauwns5gkunrvoq tilt table, fludrocortisone started per ykfbxgrpqa7brxz coital; referred cardiologly for tilt table,other investigations if fuhglg0vfwgbihwwmr,Dr swanson Social History Social History Type Response Smoking Status Never smoker entered on: 10/07/13 Sex
--- OUTSIDE RECORDS SUMMARY | 2022-11-25 22:44 | XMS_ITS | Continuity of Care Document ---
:1970 Author Organization [facility] Adult Address [address] [place] [address]- Care Team Providers Name Role Phone Charlene Terrazas NP Primary Care Physician En[place] [facility] Date(s): 09/25/21 - 11/01/21 [facility] Adult [address] [place] [address]- Attending Physician: Charlene Terrazas NP Allergies, Adverse [...] atient Refuses 1Location History: [facility]2Result Comment: [id number] Note: got at xqiy4Rpikc Note: ydreucvgd6Pfaph Note: [facility] employer Medications Benadryl Tablet = 25 mg, [...] pain(Confirmed) Active Patent foramen ovale(Confirmed) Active cortisone ldjzyldls5jtfctzbb tilt table, fludrocortisone started per kszslpjgjk2cwvc coital; referred cardiologly for tilt table,other investigations if hiouhs3DEY3;115in therapy;not bipolar per rytvbyskq0eoflnxsc mood qdiouywfgypgjq6nrud disorders questionnare;8seeing mental wunrpa9ejanxsrmpjg,Dr swanson Social History Social History Type Response Smoking Status Never smoker entered on: 10/07/13 Sex
--- OUTSIDE RECORDS SUMMARY | 2022-11-25 22:45 | XMS_ITS | Continuity of Care Document ---
:1970 Author Organization [facility] Adult Address [address] [place] [address]- Care Team Providers Name Role Phone Charleen Terrazas NP Primary Care Physician Encounter [facility] Date(s): 02/08/22 - 04/05/22 [facility] [address] [place] [address]- Attending Physician: Not on Staff, Attending MD [...] Not Given P atient Refuses 1Location History: [facility]2Result Comment: [id number] Note: got at lcsn3Cdpvt Note: vwqeuczim9Hkshb Note: [facility]. employer Medications Benadryl Tablet = 25 [...] pain(Confirmed) Active Patent foramen ovale(Confirmed) Active cortisone jthjrgsav7xdgodpvd tilt table, fludrocortisone started per jcebhdvvvl7ddzz coital; referred cardiologly for tilt table,other investigations if cehwom4HRU3;115in therapy;not bipolar per fgopjemgv8hoohoowk mood lhhdqbrvygzqbj6xsyd disorders questionnare;8seeing mental sccvxd3pzadcepfkzi,Dr carmona Social History Social History Type Response Smoking Status Never smoker entered on: 10/07/13 Sex
[2022-11-25 22:58] LABS: Alanine Aminotransferase 12 U/L (0-31); Albumin Level 3.8 g/dL (3.5-5.0); Alkaline Phosphatase 50 U/L (39-117); Anion Gap 11 (12-20); Aspartate Amino Transferase 13 U/L (5-31); Bilirubin Direct < 0.2 mg/dL (0.0-0.5); Bilirubin Total 0.3 mg/dL (0.0-1.0); Blood Urea Nitrogen 11 mg/dL (9-16); Calcium 9.4 mg/dL (8.4-10.2); Carbon Dioxide 24 mmol/L (22-29); Chloride 108 mmol/L (96-108); Creatinine Clr Calc Pharmacy 82.8; Estimated Glomerular Filt Rate > 60; Glucose Random 96 mg/dL (60-115); Magnesium 1.9 mg/dL (1.6-2.6); Potassium 4.2 mmol/L (3.3-5.1); Sodium 139 mmol/L (135-145); Total Protein 5.8 g/dL (6.5-8.0)
== END 2022-11-25 23:28 | disposition home or self-care (01) ==
PROVIDERS: Physician Assistant; Emergency Provider Emergency Medicine
DX: F07.81 Postconcussional syndrome (principal); R51.9 Headache, unspecified; M54.2 Cervicalgia; Z79.899 Other long term (current) drug therapy
CPT/HCPCS: 36415; 70450; 72125; 80048; 80076; 83735; 85025; 99282; 99284

== ENCOUNTER 2023-04-15 02:39 | Emergency (ER) | payer OTHER, MEDICAID, SELFPAY ==
--- NOTE | ~2023-04-15 | CT_ITS ---
EXAMINATION: CT ABDOMEN AND PELVIS WITHOUT CONTRAST CLINICAL INFORMATION: Right flank pain COMPARISON: 11/06/2012 TECHNIQUE: Multidetector volumetric imaging was performed from the superior aspect of the liver through the pubic symphysis. Sagittal and coronal reformatted images were obtained on the technologist's workstation. This CT examination was performed using dose optimization techniques as appropriate, variously including the following: *Automated exposure control *Adjustment of mA and/or kV according to patient size (this includes techniques or standardized protocols for targeted exams where dose is matched to indication/reason for exam; i.e. extremities or head) *Use of iterative reconstruction technique DLP: 520 mGy-cm FINDINGS: LUNG BASES: The visualized lung bases are unremarkable. LIVER, GALLBLADDER, AND BILIARY TREE: The liver is normal in size, shape, and attenuation. No focal hepatic lesion or biliary ductal dilatation is identified on this noncontrast exam. The gallbladder is unremarkable with no evidence of radiopaque gallstones, gallbladder wall thickening, or obvious pericholecystic inflammatory changes. PANCREAS: Unremarkable. SPLEEN: Unremarkable. ADRENAL GLANDS: Unremarkable. KIDNEYS AND URETERS: No hydronephrosis or obstructing calculus bilaterally. There are several scattered bilateral renal calculi, right greater than left, measuring up to 3 mm. BLADDER: Minimally distended and grossly unremarkable. GASTROINTESTINAL TRACT: No evidence of bowel obstruction or significant wall thickening. The appendix is unremarkable. No free fluid or free air is seen. ABDOMINAL WALL: No significant hernia is appreciated. LYMPH NODES: Normal. VASCULAR: Unremarkable. PELVIC VISCERA: Unremarkable. OSSEOUS STRUCTURES: Scattered mild degenerative changes in the spine. CT/CT abdomen pelvis wo IV con IMPRESSION: No hydronephrosis or obstructing calculus. Several scattered bilateral renal calculi measuring up to 3 mm.
[2023-04-15 02:47] VITALS: BP 161/77; PULSE 50; RESP 16; TEMP 36.6; O2SAT 99; BMI 28.3
[2023-04-15 03:41] VITALS: BP 153/74; PULSE 54; RESP 17; TEMP 36.6; O2SAT 100
[2023-04-15 03:44] LABS: MANUAL DIFF FLAG NO
[2023-04-15 03:45] LABS: Basophils Percent Auto 0.3 % (0-2); Eosinophils Absolute Auto 0.1 X10*3/uL (0.0-0.4); Eosinophils Percent Auto 2.2 % (0-4); Hematocrit 36.8 % (37.0-47.0); Hemoglobin 12.2 g/dl (12.0-16.0); Imm Gran Abs Auto 0.02 X10*3/uL (0.00-0.03); Imm Gran Pct Auto 0.3 % (0.0-0.4); Lymphocytes Absolute Auto 2.4 X10*3/uL (1.2-4.9); Lymphocytes Percent Auto 37.4 % (20-40); Mean Corpuscular HGB Conc 33.2 g/dl (31.0-35.0); Mean Corpuscular Volume 90.6 fL (80.0-98.0); Mean Platelet Volume 10.6 fL (9.4-12.3); Monocytes Absolute Auto 0.7 X10*3/uL (0.1-1.2); Monocytes Percent Auto 10.9 % (2-11); Neutrophils Absolute Auto 3.1 x10*3/uL (2.0-8.3); Neutrophils Percent Auto 48.9 % (45-73); Platelet Count 215 X10*3/uL (160-400); Red Blood Count 4.06 X10*6/uL (4.20-5.50); White Blood Count 6.4 X10*3/uL (4.8-10.8)
[2023-04-15 03:46] LABS: Appearance Urine Clear; Color Urine Yellow; Glucose Urine UA Negative (Negative); Leukocyte Esterase Urine Negative (Negative); Nitrite Urine Negative (Negative); PH 5.5 (5.0-9.0); Specific Gravity - Urine <= 1.005 (1.005-1.025); Urine Blood Negative (Negative); Urine Ketones Negative (Negative); Urine Protein Negative (Neg-Trace)
[2023-04-15 04:02] LABS: Alanine Aminotransferase 16 U/L (0-31); Albumin Level 3.9 g/dL (3.5-5.0); Alkaline Phosphatase 63 U/L (39-117); Anion Gap 14 (12-20); Aspartate Amino Transferase 20 U/L (5-31); Bilirubin Total 0.3 mg/dL (0.0-1.0); Blood Urea Nitrogen 15 mg/dL (9-16); Calcium 10.2 mg/dL (8.4-10.2); Carbon Dioxide 21 mmol/L (22-29); Chloride 106 mmol/L (96-108); Creatinine Clr Calc Pharmacy 72.2; Estimated Glomerular Filt Rate > 60; Glucose Random 97 mg/dL (60-115); Potassium 3.6 mmol/L (3.3-5.1); Sodium 137 mmol/L (135-145); Total Protein 6.4 g/dL (6.5-8.0)
[2023-04-15 04:14] LABS: HCG Quantitative < 2 mIU/mL
--- NOTE | 2023-04-15 04:26 | ED_ITS ---
HPI - Abdominal Pain General Chief Complaint: Abdominal Pain Stated Complaint: Flank pain Time Seen by Provider: 04/15/23 04:22 Source: patient Mode of arrival: ambulatory History of Present Illness HPI narrative: 52-year-old female who reports increasing right flank pain throughout the day that radiates into the anterior abdomen and down and to the anterior aspect of her right lower extremity with significant nausea but no vomiting/fevers/chills and denies any urinary symptoms. She does have a history of renal colic. Related Data Previous Rx's Medication Instructions Recorded prednisone 5 mg tablet See Rx Instructions PO .COMPLEX 12/05/20 #36 tabs triamcinolone acetonide 0.025 % 1 appl topical BID #80 grams 12/05/20 topical ointment Allergies Allergy/AdvReac Type Severity Reaction Status Date / Time quetiapine [From SEROQUEL] Allergy Severe ANAPHYLAXIS Verified 11/25/22 20:49 Review of Systems Review of Systems Pertinent positives and negatives as stated in HPI PMFSH Past Medical History Source: nursing notes reviewed Social History Social History Alcohol intake: current Alcohol intake frequency: a few times a week Advance Directives: No Advance Directives Information Provided: Yes Physical Exam ED Vital Signs: Vital Signs - 24 hr 04/15/23 02:47 04/15/23 03:41 Temperature 97.9 F 97.9 F Pulse Rate 50 54 Respiratory Rate 16 17 Blood Pressure 161/77 H 153/74 H Pulse Oximetry 99 100 Oxygen Delivery Method Room Air Room Air BMI result Body Mass Index 28.3 VITAL SIGNS: Reviewed. GENERAL: Well developed, well nourished, in no acute distress. HEAD: Normocephalic/atraumatic EYES: PERRLA, EOMI EARS: Ext canals without abnormality NOSE: Nares patent bilateral OROPHARYNX: no oral lesions noted, posterior pharynx clear NECK: Supple, no adenopathy LUNGS: Normal breath sounds. No adventitious sounds or accessory muscle use. SpO2<100> CARDIOVASCULAR: Regular rate and rhythm without noted murmurs ABDOMEN: Soft, non-tender, non-distended with bowel sounds, no CVA tenderness. MUSCULOSKELETAL: No tenderness, deformities, or effusions noted on gross inspection. EXTREMITIES: No cyanosis, clubbing or edema. SKIN: Inspection of the skin reveals no rashes NEUROLOGIC: Alert and oriented x 4. Strength and sensation to light touch were grossly intact x 4. Medical Decision Making Medical Decision Making [facility] Narrative: 52-year-old female with history and clinical presentation, DDX: Renal colic, cholecystitis, pyelonephritis, UTI I reviewed all investigations, hematologic indices are negative for evidence of of leukocytosis, anemia, thrombocytopenia. Chemistries are grossly within normal limits no evidence liver function abnormalities, beta hCG is negative and urinalysis is negative for evidence of infection. CT scan is negative for evidence ureterolithiasis and otherwise my interpretation is in agreement with radiology's impression. Patient received 1 dose of 15 mg of Toradol, 4 mg of Zofran, and 1 L of IV fluids. All results discussed with her at bedside and she is otherwise discharged home in stable condition. Differential Diagnosis Differential Diagnoses: The differential diagnosis associated with the presentation includes Please see the discussion Admission/Observation Consideration of admission/observation: Escalation of care including admission/observation considered Lab Data [facility] Lab Attestation statement: I reviewed the patient's lab results. Please see the discussion above 04/15/23 03:39 04/15/23 03:38 Labs: Lab Results 04/15/23 04/15/23 04/15/23 Range/Units 03:36 03:38 03:38 WBC (4.8-10.8) X10*3/uL RBC (4.20-5.50) X10*6/uL Hgb (12.0-16.0) g/dl Hct (37.0-47.0) % MCV (80.0-98.0) fL MCH (27.0-33.0) pg MCHC (31.0-35.0) g/dl RDW (11.0-16.0) % Plt Count (160-400) X10*3/uL MPV (9.4-12.3) fL Immature Gran % (Auto) (0.0-0.4) % Neut % (Auto) (45-73) % Lymph % (Auto) (20-40) % Preston % (Auto) (2-11) % Eos % (Auto) (0-4) % Baso % (Auto) (0-2) % Lymph # (Auto) (1.2-4.9) X10*3/uL Preston # (Auto) (0.1-1.2) X10*3/uL Eos # (Auto) (0.0-0.4) X10*3/uL Baso # (Auto) (0.0-0.2) X10*3/uL Abs Immat Gran (auto) (0.00-0.03) X10*3/uL Absolute Neuts (auto) (2.0-8.3) x10*3/uL Absolute Nucleated RBC (0.0-0.012) X10*3/uL Nucleated RBC % (auto) (0.0-0.2) /100WBC Sodium 137 (135-145) mmol/L Potassium 3.6 (3.3-5.1) mmol/L Chloride 106 (96-108) mmol/L Carbon Dioxide 21 L (22-29) mmol/L Anion Gap 14 (12-20) BUN 15 (9-16) mg/dL Creatinine 0.89 (0.5-1.4) mg/dL Estim Creat Clear Calc 72.2 Estimated GFR > 60 Random Glucose 97 (60-115) mg/dL Calcium 10.2 D (8.4-10.2) mg/dL Total Bilirubin 0.3 (0.0-1.0) mg/dL AST 20 (5-31) U/L ALT 16 (0-31) U/L Alkaline Phosphatase 63 (39-117) U/L Total Protein 6.4 L (6.5-8.0) g/dL Albumin 3.9 (3.5-5.0) g/dL Beta HCG, Quant < 2 mIU/mL Urine Color Yellow Urine Appearance Clear Urine pH 5.5 (5.0-9.0) Ur Specific [place] <= 1.005 (1.005-1.025) Urine Protein Negative (Neg-Trace) mg/dL Urine Glucose (UA) Negative (Negative) mg/dL Urine Ketones Negative (Negative) mg/dL Urine Blood Negative (Negative) Urine Nitrite Negative (Negative) Ur Leukocyte Esterase Negative (Negative) 04/15/23 Range/Units 03:39 WBC 6.4 (4.8-10.8) X10*3/uL RBC 4.06 L (4.20-5.50) X10*6/uL Hgb 12.2 (12.0-16.0) g/dl Hct 36.8 L (37.0-47.0) % MCV 90.6 (80.0-98.0) fL MCH 30.0 (27.0-33.0) pg MCHC 33.2 (31.0-35.0) g/dl RDW 13.0 (11.0-16.0) % Plt Count 215 (160-400) X10*3/uL MPV 10.6 (9.4-12.3) fL Immature Gran % (Auto) 0.3 (0.0-0.4) % Neut % (Auto) 48.9 (45-73) % Lymph % (Auto) 37.4 (20-40) % Preston % (Auto) 10.9 (2-11) % Eos % (Auto) 2.2 (0-4) % Baso % (Auto) 0.3 (0-2) % Lymph # (Auto) 2.4 (1.2-4.9) X10*3/uL Preston # (Auto) 0.7 (0.1-1.2) X10*3/uL Eos # (Auto) 0.1 (0.0-0.4) X10*3/uL Baso # (Auto) 0.0 (0.0-0.2) X10*3/uL Abs Immat Gran (auto) 0.02 (0.00-0.03) X10*3/uL Absolute Neuts (auto) 3.1 (2.0-8.3) x10*3/uL Absolute Nucleated RBC 0.000 (0.0-0.012) X10*3/uL Nucleated RBC % (auto) 0.0 (0.0-0.2) /100WBC Sodium (135-145) mmol/L Potassium (3.3-5.1) mmol/L Chloride (96-108) mmol/L Carbon Dioxide (22-29) mmol/L Anion Gap (12-20) BUN (9-16) mg/dL Creatinine (0.5-1.4) mg/dL Estim Creat Clear Calc Estimated GFR Random Glucose (60-115) mg/dL Calcium (8.4-10.2) mg/dL Total Bilirubin (0.0-1.0) mg/dL AST (5-31) U/L ALT (0-31) U/L Alkaline Phosphatase (39-117) U/L Total Protein (6.5-8.0) g/dL Albumin (3.5-5.0) g/dL Beta HCG, Quant mIU/mL Urine Color Urine Appearance Urine pH (5.0-9.0) Ur Specific [place] (1.005-1.025) Urine Protein (Neg-Trace) mg/dL Urine Glucose (UA) (Negative) mg/dL Urine Ketones (Negative) mg/dL Urine Blood (Negative) Urine Nitrite (Negative) Ur Leukocyte Esterase (Negative) Radiology Impression Radiologist Impression: No ureterolithiasis, otherwise my interpretation is in agreement with radiology's impression. Medications Administered Discontinued Medications Generic Name Dose Route Start Last Admin Trade Name Freq PRN Reason Stop Dose Admin Sodium Chloride 1,000 mls @ 999 mls/hr 04/15/23 04:30 04/15/23 04:39 Ns IV 04/15/23 05:30 999 mls/hr .Q1H1M DIANNE Administration Ketorolac Tromethamine 15 mg 04/15/23 04:24 04/15/23 04:39 Ketorolac Tromethamine 30 Mg/Ml Vial IVPUSH 04/15/23 04:25 15 mg ONCE ONE Administration Ondansetron HCl 4 mg 04/15/23 04:24 04/15/23 04:39 Ondansetron Hcl 4 Mg/2 Ml Vial IVPUSH 04/15/23 04:25 4 mg ONCE ONE Administration Discharge Plan Discharge Clinical Impression: Right flank pain, Musculoskeletal pain Patient Disposition: Home, Self-Care Instructions: Musculoskeletal Pain (ED), Flank Pain (ED) Additional Instructions: 1. Resume all home medications as prescribed. 2. Recommend that you use [id number] Tylenol/ibuprofen as needed for any pain control, increase the amount of water that you drink. 3. Follow-up with primary care provider in the next 1-2 days. Return to the ER for any worsening symptoms. Prescriptions: No Action triamcinolone acetonide 0.025 % ointment 1 appl topical BID Qty: 80 0RF prednisone 5 mg tablet See Rx Instructions .ROUTE .COMPLEX Qty: 36 0RF Rx Instructions: prednisone 5 mg: take 8 tablets (40 mg) on Day 1; 7 tablets (35 mg) on Day 2; then decrease by 1 tablet every day until finished Referrals: Charlene Terrazas, [employer] [Primary Care Provider] -
--- NOTE | 2023-04-15 04:30 | PC.NURSE ---
Pt to CT
[2023-04-15] MEDS: ondansetron HCL 4 MG/2 ML VIAL IVPUSH (04:39)
[2023-04-15] MEDS: 0.9 % Sodium Chloride 1,000 ML 999 ML IV (04:39)
[2023-04-15] MEDS: Ketorolac Tromethamine 30 MG/ML VIAL 15 MG IVPUSH (04:39)
--- OUTSIDE RECORDS SUMMARY | 2023-04-15 04:42 | XMS_ITS | Continuity of Care Document ---
Author Name Unknown Organization [facility] [place] Address [address] [place] [address]- Care Team Providers Care Industrial Maintenance Electrician Name Role Phone Charlene Terrazas NP Primary Care Physician Encounter [facility] [place] Date(s): 08/08/22 - 12/06/22 [facility] [place] Adult [address] [place] [address]- Attending Physician: Prudencio MEEK, Raimundo Montes Referring Physician: Charlene Terrazas NP Allergies, Adverse Reactions, Alerts Substance Reaction Severity Status Seroquel Active Immunizations Given and Recorded Vaccine Date Status Refusal Reason SARS-CoV-2 mRNA ([id number]) vax 1 07/18/22 Recorded Influenza Virus Vaccine (oldterm) 2 07/18/22 Recor ded Influenza Virus Vaccine (oldterm) 3 07/06/16 Given Influenza Virus Vaccine (oldterm) 4 06/21/09 Given SARS-CoV-2 (COVID-19) mRNA BNT-162b2 vac 12/17/20 Recorded SARS-CoV-2 (COVID-19) mRNA BNT-162b2 vac 11/21/20 Recorded influenza virus vaccine, inactivated 07/27/18 Christian rded influenza virus vaccine, inactivated 07/06/18 Christian rded influenza virus vaccine, inactivated 07/21/17 Christian rded influenza virus vaccine, inactivated 07/16/17 Christian rded influenza virus vaccine, inactivated 07/13/15 Christian rded influenza virus vaccine, inactivated 5 07/06/13 Re corded influenza virus vaccine, inactivated 6 06/29/10 Gi denisha tetanus-diphtheria toxoids (Td) 05/11/18 Given Measles/Mumps/Rubella Virus Vaccine 10/07/13 Given Measles/Mumps/Rubella Virus Vaccine 09/17/10 Given FluLaval (oldterm) 7 05/19/12 Given FluLaval (oldterm) 06/29/10 Given Tet/Diphth/Acel, Pertussis (oldterm) 03/18/08 Give n Tetanus Toxoid Vaccine (oldterm) 10/06/97 Given Not Given Vaccine Date Status Refusal Reason influenza virus vaccine, inactivated 07/05/18 Not Given Patient Refuses pneumococcal 23-valent vaccine 07/05/18 Not Given Patient Refuses 1Result Comment: [facility] 2Result Comment: [facility] 3Admin Note: got at work 4Admin Note: decluines 5Location History: [facility] 6Result Comment: ERROR 7Admin Note: [facility] employer Medications Benadryl Tablet = 25 mg, By Mouth, Daily at bedtime, 0 Refills, Maintenance, 06/16/15 15:31:35 Start Date: 06/16/15 Status: Ordered omeprazole 20 mg oral delayed release tablet 1 tablet = 20 mg, By Mouth, Daily, # 90 tablet, 1 Refills, Maintenance, 06/07/22 11:09:00 EDT, [id number], 160, cm, 06/07/22 10:58:00 EDT, Height, 72.8, kg, 03/13/21 17:00:00 EDT, Dry Weight Start Date: 06/07/22 Status: Ordered Problem List Condition Confirmation Course Effective Dates Status H ealth Status Informant Alcohol abuse Confirmed Active Bilateral carpal tunnel syndrome 1 Confirmed Active Chronic constipation Confirmed Active Chronic dermatitis Confirmed Active Chronic rhinitis Confirmed Active Bilateral ovarian cysts Confirmed Active Generalized anxiety disorder Confirmed Active H/O syncope 2, 3 Confirmed Active H/O dizziness Confirmed Active Insomnia Confirmed Active Depression, major 4, 5, 6, 7, 8 Confirmed Active Nephrolithiasis 9 Confirmed Active Lower extremity pain Confirmed Active Patent foramen ovale Confirmed Active cortisone injection 2positive tilt table, fludrocortisone started per cardiology 3post coital; referred cardiologly for tilt table,other investigations if needed 4PHQ9;11 5in therapy;not bipolar per therapist 6positive mood questiionnaire 7mood disorders questionnare; 8seeing mental health 9lithotrypsy,Dr carmona Social History Social History Type Response Smoking Status Never smoker entered on: 10/07/13 Sex Patient Care team information Care Team Personnel Name: Charlene Terrazas NP Position: [facility] PCO Associate Professional Member Role: PCP Address: Address: [address] [place] [id number]- Name: Shanel Rojas RN Position: [facility] RN Member Role: Primary Care Nurse Name: Miri Marshall RN Position: [facility] OB RN Member Role: Primary Care Nurse Name: Darlene Rodriguez RN Position: [facility] RN Member Role: Primary Care Nurse Care Team Related Persons Name: SUNDAY STAFFORD Address: home [address] [place] [address] Name: VELASQUEZ MENDOZA Address: home [address] [place] [address] Name: CHRISTIE MALDONADO Address: home [address] [place] [address] Name: RICHARD MOLINA Address: home [address] [place] [address]
--- OUTSIDE RECORDS SUMMARY | 2023-04-15 04:43 | XMS_ITS | Continuity of Care Document ---
Author Name Unknown Organization [facility] Address [address] [place] [address]- Care Team Providers Care Face Boss Name Role Phone [facility] MANAGERCharlene Primary Care Physician Encounter [facility] Date(s): 02/21/23 - 03/23/23 [facility] [address] [place] [address]- Allergies, Adverse Reactions, Alerts Substance Reaction Severity Status Seroquel Active Immunizations Given and Recorded Vaccine Date Status Refusal Reason SARS-CoV-2 mRNA ([id number]) vax 1 07/18/22 Recorded Influenza Virus Vaccine [...] 07/05/18 Not Given Patient Refuses 1Result Comment: [facility] 2Result Comment: [facility] 3Admin Note: got at work 4Admin Note: decluines 5Location History: [facility] 6Result Comment: ERROR 7Admin Note: [facility] employer Medications Benadryl Tablet = 25 [...] questiionnaire 7mood disorders questionnare; 8seeing mental health 9lithotryperickson,Dr carmona Social History Social History Type Response Smoking Status Never smoker entered on: 10/07/13 Sex Patient Care team information Care Team Personnel Name: Charlene Terrazas NP Position: [facility] PCO Associate Professional Member Role: PCP Address: Address: [address] [place] [address]- Name: Shanel Rojas RN Position: [facility] RN Member Role: Primary Care Nurse Name: Miri Marshall RN Position: [facility] OB RN Member Role: Primary Care Nurse Care Team Related Persons Name: SUNDAY STAFFORD Address: home [address] [place] [address] Name: VELASQUEZ MENDOZA Address: [address] [place] [address] Name: CHRISTIE MALDONADO Address: home [address] [place] [address] Name: RICHARD MOLINA Address: [address] [place] [address]
--- OUTSIDE RECORDS SUMMARY | 2023-04-15 04:43 | XMS_ITS | Continuity of Care Document ---
Author Name Unknown Organization [facility] Address [address] [place] [address]- Care Team Providers Care Door To Door Sales Representative Name Role Phone Nini OUTSIDE INSTALLER APPRENTICE, Charlene Fair Primary Care Physician [phone] Encounter [facility] Date(s): 10/28/22 - 11/27/22 [facility] [address] [place] [address]- Allergies, Adverse Reactions, Alerts Substance Reaction Severity Status Seroquel Active Immunizations Given and Recorded Vaccine Date Status Refusal Reason SARS-CoV-2 mRNA (vfzypae-qajx-xzwyq) vax 1 07/18/22 Recorded Influenza Virus Vaccine [...] 07/05/18 Not Given Patient Refuses 1Result Comment[facility] 2Result Comment[facility] 3Admin Note: got at work 4Admin Note: decluines 5Location History: [facility] 6Result Comment: ERROR 7Admin Note: [facility] employer Medications Benadryl Tablet = 25 [...] questiionnaire 7mood disorders questionnare; 8seeing mental health 9lithotrotilio,Dr carmona Social History Social History Type Response Smoking Status Never smoker entered on: 10/07/13 Sex Patient Care team information Care Team Personnel Name: Nini OUTSIDE INSTALLER APPRENTICE, Charlene L Position: [facility] PCO Associate Professional Member Role: PCP Address: Address: [address] [place] [address]- Name: Shanel Rojas RN Position: [facility] RN Member Role: Primary Care Nurse Name: Miri Marshall RN Position: [facility] OB RN Member Role: Primary Care Nurse Name: Darlene Rodriguez RN Position: [facility] RN Member Role: Primary Care Nurse Care Team Related Persons Name: SUNDAY STAFFORD Address: home [address] [place] [address] Name: VELASQUEZ MENDOZA Address: [address] [place] [address] Name: CHRISTIE MALDONADO Address: [address] [place] [address] Name: RICHARD MOLINA Address: [address] [place] [address]
== END 2023-04-15 06:05 | disposition home or self-care (01) ==
PROVIDERS: Emergency Provider Student in an Organized Health Care Education/Training Program; PCP Nurse Practitioner Family
DX: R10.9 Unspecified abdominal pain (principal); M79.10 Myalgia, unspecified site
CPT/HCPCS: 36415; 74176; 80053; 81003; 84702; 85025; 96374; 96375; 99284; 99285; J1885; J2405

== ENCOUNTER 2023-06-06 13:31 | Emergency (ER) | payer OTHER, SELFPAY ==
--- NOTE | ~2023-06-06 | XR_ITS ---
EXAMINATION: XR FINGER, LEFT CLINICAL INFORMATION: Pain in fourth finger COMPARISON: None available. TECHNIQUE: 2 views of fourth finger and single view of left hand FINDINGS: The bones and soft tissues are normal. No fracture. Alignment is anatomic. Joint spaces are maintained. XR/XR finger LT min 2V IMPRESSION: Normal finger radiographs.
[2023-06-06 13:44] VITALS: BP 129/90; PULSE 70; RESP 18; TEMP 36.7; O2SAT 98; BMI 27.5
--- NOTE | 2023-06-06 13:47 | ED.WOUNDLAC ---
HPI - Wound/Laceration General Chief Complaint: Wound/Laceration Stated Complaint: needs stitches Time Seen by Provider: 06/06/23 14:18 Source: patient Mode of arrival: ambulatory Limitations: no limitations History of Present Illness HPI narrative: 52-year-old female, right-hand dominant presents to the ER for evaluation of a small laceration over the proximal knuckle of the left ring finger that occurred today when she was using a knife to cut zip ties. She reports the pain radiates both distally and proximally. She has pain with any range of motion of her PIP or DIP. No active bleeding. She is up-to-date on tetanus shot Onset (ago): hour(s) Extremity Location: left: hand Place: home Patient tetanus UTD: Yes Context: accidental Associated symptoms: pain Treatments prior to arrival: bandage Related Data Previous Rx's Medication Instructions Recorded prednisone 5 mg tablet See Rx Instructions PO .COMPLEX 12/05/20 #36 tabs triamcinolone acetonide 0.025 % 1 appl topical BID #80 grams 12/05/20 topical ointment Allergies Allergy/AdvReac Type Severity Reaction Status Date / Time quetiapine [From SEROQUEL] Allergy Severe ANAPHYLAXIS Verified 11/25/22 20:49 Review of Systems Review of Systems: Yes all other systems are reviewed and are negative [facility] Social History Social History Alcohol intake: current Alcohol intake frequency: a few times a week Advance Directives: No Advance Directives Information Provided: No Physical Exam Vital Signs: Vital Signs: Last Vital Signs Temp 98.1 F 06/06/23 13:44 Pulse 70 06/06/23 13:44 Resp 18 06/06/23 13:44 BP 129/90 H 06/06/23 13:44 Pulse Ox 98 06/06/23 13:44 O2 Del Method Room Air 06/06/23 13:44 BMI result Body Mass Index 27.5 Appearance: Alert. Oriented X3. No acute distress. HEENT: normal inspection CVS: Normal heart rate and rhythm. Pulses normal. Respiratory: No respiratory distress. Skin: Skin warm and dry. Normal skin color. Normal skin turgor. No rashes. Extremities: Dorsal side of the left ring finger with a small, approximately 1 cm linear laceration that is well approximated, no active bleeding. She is tender in the D IP and PIP joints with limited range of motion however she is able to slightly flex at both joints. She is able to fully extend. Cap refill less than 3 seconds. There is some early bruising to the D IP area. Finger is swollen proximally with a ring in place. Neuro: Oriented X 3. No motor deficit. No sensory deficit. Course Course Course Narrative: This is an RME: Additional HPI, ROS, PE not included below will be deferred to primary provider. This is a [id number]-female presenting to the ER with complaints of left fourth finger laceration after accidentally lacerating it on a knife. partial thickness laceration noted to left fourth digit. Pt unable to move left fourth PIP. Plan: Xray, wound care. Medical Decision Making Medical Decision Making MDM Narrative: 52-year-old female presents to the ER for evaluation of a left ring finger laceration on the dorsal aspect of her finger. She has pain with flexion but is able to slightly flex at the D IP and PIP joints. The small wound is well-approximated and not actively bleeding. No indication for stitches today. Wound was cleaned and reinforced with X- skin glue and Steri-Strips. Wound was dressed. X-ray does not show any bony involvement. No need for x-rays today. Given the radiation of her pain both distally and proximally, limited range of motion will refer to orthopedics for further evaluation of partial tendon involvement. Patient agrees with plan and stable for discharge home Differential Diagnosis Differential Diagnoses: The differential diagnosis associated with the presentation includes superficial lac, deep lac, partial tendon lac, open fracture Independent Interpretation I performed an independent interpretation of an: Plain X-Ray Interpretation: no acute fracture, agree w/ radiology read Radiology Impression Discussion of test interpretation with radiology: I have reviewed the radiologist's reading. Radiologist Impression: EXAMINATION: XR FINGER, LEFT CLINICAL INFORMATION: Pain in fourth finger? COMPARISON: None available.? TECHNIQUE: 2 views of fourth finger and single view of left hand FINDINGS: The bones and soft tissues are normal. No fracture. Alignment is anatomic. Joint spaces are maintained.? XR/XR finger LT min 2V IMPRESSION: Normal finger radiographs. ? External Record Review External record reviewed: Outpatient record Prescription Management I considered prescription management with: Pain Medication Procedures Foreign Body Removal Site: right and hand Description of foreign body: other ( Ring) Sedation/Analgesia: none Technique: other ( ring rescue electric ring removal device) Confirmed by:: direct visualization and palpation Complications: pain Post-procedure exam: awake, alert Neurovascular: normal capillary fill, distal light touch sensation intact and distal motor function normal Laceration Laceration 1: Side (If applicable): left Size (cm): 1 Description: linear Depth: simple, single layer Pre-repair: irrigated extensively Skin layer closed with: other (steri strips and exofin skin glue) Critical Care Time Critical Care Time Critical Care Time: No Discharge Plan Discharge Clinical Impression: Laceration Patient Disposition: Home, Self-Care Instructions: Finger Laceration (ED) Additional Instructions: Your x-ray today was normal. Keep wound clean and covered. Use ice several times per day for the next 48 hours. Elevate when able. Take Motrin and/or Tylenol as needed for pain. Wear the provided splint as needed for additional support. Follow up with your doctor as needed. If ongoing symptoms and limited mobility, recommend following up with orthopedics, name and number below Prescriptions: No Action triamcinolone acetonide 0.025 % ointment 1 appl topical BID Qty: 80 0RF prednisone 5 mg tablet See Rx Instructions .ROUTE .COMPLEX Qty: 36 0RF Rx Instructions: prednisone 5 mg: take 8 tablets (40 mg) on Day 1; 7 tablets (35 mg) on Day 2; then decrease by 1 tablet every day until finished Referrals: [facility] [Provider Group] (finger injury, possible tendon involvement) Stand Alone Forms: Work/School Release
--- OUTSIDE RECORDS SUMMARY | 2023-06-06 14:29 | XMS_ITS | Continuity of Care Document ---
Author Name Unknown Organization [facility] Address [address] [place] [address]- Care Team Providers Care [place] [employer] Leader Name Role Phone Charlene Terrazas NP Primary Care Physician Encounter [facility] Date(s): 05/20/23 - 05/27/23 [facility] [address] [place] [address]- Encounter Diagnosis Annual physical exam(Discharge Diagnosis) - 05/19/23 H/O alcohol abuse(Discharge Diagnosis) - 05/20/23 Depression, major, recurrent, mild(Discharge Diagnosis) - 05/20/23 Gastro-esophageal reflux(Discharge Diagnosis) - 05/20/23 Urinary incontinence(Discharge Diagnosis) - 05/20/23 Attending Physician: Prudencio MEEK, Raimundo Montes Referring Physician: Charlene Terrazas NP Allergies, Adverse Reactions, Alerts Substance Reaction Severity Status Seroquel Active Immunizations Given and Recorded Vaccine Date Status Refusal Reason SARS-CoV-2 mRNA ([id number]) vax 1 07/18/22 Recorded Influenza Virus Vaccine [...] virus vaccine, inactivated 5 07/06/13 Re corded tetanus-diphtheria toxoids (Td) 05/11/18 Given Measles/Mumps/Rubella Virus Vaccine 10/07/13 Given Measles/Mumps/Rubella Virus Vaccine 09/17/10 Given FluLaval (oldterm) 6 05/19/12 Given FluLaval (oldterm) 06/29/10 Given Tet/Diphth/Acel, Pertussis (oldterm) 03/18/08 Give n Tetanus Toxoid Vaccine (oldterm) 10/06/97 Given 1Result Comment: [facility] 2Result Comment: [facility] 3Admin Note: got at work 4Admin Note: decluines 5Location History: [facility] 6Admin Note: [facility] Medications Benadryl Tablet = 25 mg, By Mouth, Daily at bedtime, 0 Refills, Maintenance, 06/16/15 15:31:35 Start Date: 06/16/15 Status: Ordered cetirizine 10 mg oral tablet 1 tablet = 10 mg, By Mouth, Daily, # 90 tablet, 1 Refills, Maintenance, 05/20/23 8:11:00 EDT, Tablet, [facility]/pharmacy #[id number], 163, cm, 05/20/23 7:52:00 EDT, Height Start Date: 05/20/23 Status: Ordered famotidine 40 mg oral tablet 1 tablet = 40 mg, By Mouth, Daily at bedtime, # 90 tablet, 1 Refills, Maintenance, 05/20/23 8:14:00EDT, Tablet, [facility]/pharmacy #[id number], 163, cm, 05/20/23 7:52:00 EDT, Height Start Date: 05/20/23 Stop Date: 11/16/23 Status: Ordered Megan 0 Refills, Maintenance, 05/20/23 8:15:00 EDT, Partial fill upon patient request if the prescriptionis for a schedule II opioid drug. Start Date: 05/20/23 Status: Ordered Magnesium Oxide By Mouth, 0 Refills, Maintenance, 05/20/23 8:15:00 EDT, Partial fill upon patient request if the prescription is for a schedule II opioid drug. Start Date: 05/20/23 Status: Ordered Multivitamin Daily, 0 Refills, Maintenance, 05/20/23 8:15:00 EDT Start Date: 05/20/23 Status: Ordered Omeprazole By Mouth, Daily, 0 Refills, Maintenance, 05/20/23 8:14:00 EDT Start Date: 05/20/23 Status: Ordered Turmeric = 500 mg, By Mouth, Daily, 0 Refills, Maintenance, 05/20/23 8:15:00 EDT, Partial fill upon patient request if the prescription is for a schedule II opioid drug. Start Date: 05/20/23 Status: Ordered Vitamin B12 1000 mcg oral tablet 1 tablet = 1,000 mcg, By Mouth, Daily, # 90 tablet, 3 Refills, Maintenance, 05/20/23 22:19:00 EDT, Tablet, [facility]/pharmacy #[id number], Partial fill upon patient request if the prescription is for a schedule II opioid drug., 163, cm, 05/20/23 7:52:00 EDT, Height Start Date: 05/20/23 Status: Ordered Problem List Condition Confirmation Course Effective Dates Status H ealth Status Informant Bilateral carpal tunnel syndrome 1 Confirmed Active Chronic constipation Confirmed Active Chronic dermatitis Confirmed Active Chronic rhinitis Confirmed Active Deficiency of vitamin B12 Confirmed Active Bilateral ovarian cysts Confirmed Active Generalized anxiety disorder Confirmed Active H/O syncope 2, 3 Confirmed Active H/O alcohol abuse Confirmed Active Insomnia Confirmed Active Nephrolithiasis 4 Confirmed Active Lower extremity pain Confirmed Active Patent foramen ovale Confirmed Active Depression, major, recurrent, mild 5, 6, 7, 8, 9 Confirmed Active cortisone injection 2positive tilt table, fludrocortisone started per cardiology 3post coital; referred cardiologly for tilt table,other investigations if needed 4lithotrypsy,Dr carmona 5PHQ9;11 6in therapy;not bipolar per therapist 7positive mood questiionnaire 8mood disorders questionnare; 9seeing mental health Diagnosis Diagnosis Type Effective Dates Health Status Clinical Service Informant Annual physical exam Discharge Diagnosis 05/19/23 H/O alcohol abuse Discharge Diagnosis 05/20/23 Depression, major, recurrent, mild Discharge Diagnosis 05/20/23 Gastro-esophageal reflux Discharge Diagnosis 05/20/23 Urinary incontinence Discharge Diagnosis 05/20/23 Vital Signs Most recent to oldest [Reference Range]: 1 Height 163.0 cm (05/20/23 7:52 AM) Weight 73.2 kg (8/15/23 7:52 AM) Oxygen Saturation [94-100 %] 98 % (05/20/23 7:52 AM) Pulse Rate [55-90 bpm] 68 bpm (05/20/23 7:52 AM) Body Mass Index [18.5-24.99 kg/m2] 27.55 kg/m2 *H* (05/20/23 7:52 AM) Blood Pressure [90-138/55-84 mm Hg] 106/ 72mm Hg (05/20/23 7:52 AM) Temperature [96.8-100.4 DegF] 98.1 DegF (05/20/23 7:52 AM) Mode of Delivery (Oxygen) Nasal cannula (05/20/23 7:52 AM) Blood pressure sites Arm, left (05/20/23 7:52 AM) Temperature Route Oral (05/20/23 7:52 AM) Weight Obtained Via Standing scale (05/20/23 7:52 AM) Social History Social History Type Response Smoking Status Never smoker entered on: 10/07/13 Sex Note * Licha Hernandez: PERFORM, SIGN, VERIFY Event Display: Patient Education/Instruction Authored Date: [id number] [facility] *BMP So Yuan [place] Clinical Summary Name VALENTINA MALDONADO Age 52 Years 1970 PCP Charlene Terrazas NP PCP Visit Date 05/20/2023 07:49:00 Additional Instructions: Scheduled Appointments?? Future Appointments ?No Future Appointments Scheduled Follow-Up Instructions ?? With: Address: When: Charlene Terrazas NP In 1 year Diagnosis Encounter for general adult medical examination without abnormal findings; Major depressive disorder, recurrent, mild; Gastro-esophageal reflux disease without esophagitis; Unspecified urinary incontinence; Personal history of other specified conditions Medications: Please continue your medications until treatment is completed or stopped by your provider. Discuss any questions related to medications with your provider. New Medications [facility]/pharmacy #[id number], [address], [place] [id number], [phone] Cetirizine (cetirizine 10 mg oral tablet) 1 tab(s) Oral Daily. Refills: 1. Next Dose: Famotidine (famotidine 40 mg oral tablet) 1 tab(s) Oral Daily at Bedtime for 90 Days. Refills: 1. Next Dose: Medications to Continue with No Changes These medications were not printed or sent to your pharmacy DiphenhydrAMINE (Benadryl Tablet) 25 Milligram Oral Daily at Bedtime. Next Dose: Megan Next Dose: Magnesium Oxide Oral. Next Dose: Multivitamin Daily. Next Dose: Omeprazole Oral Daily. Next Dose: turmeric (Turmeric) 500 Milligram Oral Daily. Next Dose: Allergy Info:?? Seroquel Medications Given This Visit Future Orders ?No future orders Vital Signs Height 163.0 cm Weight 73.2 kg BMI 27.55 kg/m2 Blood Pressure 106 mm Hg/72 mm Hg Temperature 98.1 DegF Pulse Rate 68 bpm Respiratory Rate 02 Sat Mode of Delivery 98 %/Nasal cannula You can now view a summary of your hospital visit from the comfort of your home through a free online portal called [employer]. [employer] is a website that allows you to securely view your medical information including discharge summary, medications and follow-up visits. ??You can alsosend a secure electronic message to your doctor???s office to request appointments, renew medications or just ask a question. You can enroll at [email or web address] or register during your next office visit. Disclaimer:?? The information provided is of a general nature and is intended to be used in conjunction with the recommendations and advice of your health care practitioner. ??Every effort has been made to ensure that the information provided is accurate and complete at the time it is provided to you however, as your needs change, or, as new ??information becomes available, different or additional instructions may be required. If you have questions, please consult with your primary care provider or pharmacist, as appropriate. ??This information is not intended to serve as substitution for assessment and evaluation by a qualified health care provider. If you do not have a primary care provider, you may find a [facility] provider by calling [facility] at [phone]. For information about the plan of care including goals and instructions for your diagnosis, please see the patient education orders section of this document. Patient Education Materials?? The content of this educational material or handout may have been modified, supplemented, or adapted from its original content and format to support your individualized medical care. Prevention Guidelines, Women Ages 50 to 64 Screening tests and vaccines are an important part of managing your health. Health counseling is essential, too. Below are guidelines for these, for women ages 50 to 64. Talk with your healthcare provider to make sure you???re up to date on what you need. Screening Who needs it How often Type 2 diabetes or prediabetes All adults beginning at age 45 and adults without symptoms at any age who are overweight or obese and have 1 or more additional risk factors for diabetes. At?? least every 3 years Alcohol misuse All women in this age group At routine exams Blood pressure All women in this age group Every 2 years if your blood pressure is less than 120/80 mm Hg; yearly if your systolic blood pressure is 120 to 139 mm Hg, or your diastolic blood pressure reading is 80 to 89 mm Hg Breast cancer All women in this age group Yearly mammogram and clinical breast exam1 Cervical cancer All women in this age group, except women who have had a complete hysterectomy Pap test every 3 years or Pap test with human papillomavirus (HPV) test every 5 years Chlamydia Women at increased risk for infection At routine exams Colorectal cancer All women in this age group Flexible sigmoidoscopy every 5 years, or colonoscopy every 10 years, or double- contrast barium enema every 5 years; yearly fecal occult blood test or fecal immunochemical test; or a stool DNA test asoften as your health care provider advises; talk with your health care provider about which tests are best for you Depression All women in this age group At routine exams Gonorrhea Sexually active women at increased risk for infection At routine exams Hepatitis C Anyone at increased risk; 1 time for those born between 1945 and 1964 At routine exams High cholesterol or triglycerides All women in this age group who are at risk for coronary artery disease At least every 5 years HIV All women At routine exams Lung cancer Adults age 55 to 80 who have smoked Yearly screening in smokers with 30 pack-year history of smoking or who quit within 15 years Obesity All women in this age group At routine exams Osteoporosis Women who are postmenopausal Ask your healthcare provider Syphilis Women at increased risk for infection ??? talk with your healthcare provider At routine exams Tuberculosis Women at increased risk for infection ??? talk with your healthcare provider Ask your healthcare provider Vision All women in this age group Ask your healthcare provider Vaccine Who needs it How often Chickenpox (varicella) All women in this age group who have no record of this infection or vaccine 2 doses; the second dose should be given at least 4 weeks after the first dose Hepatitis A Women at increased risk for infection ??? talk with your healthcare provider 2 doses given at least 6 months apart Hepatitis B Women at increased risk for infection ??? talk with your healthcare provider 3 doses over 6 months; second dose should be given 1 month after the first dose; the third dose should be given at least 2 months after the second dose and at least 4 months after the first dose Haemophilus influenzaeType B (HIB) Women at increased risk for infection ??? talk with your healthcare provider 1 to 3 doses Influenza (flu) All women in this age group Once a year Measles, mumps, rubella (MMR) Women in this age group through their late 50s who have no record of these infections or vaccines 1 dose Meningococcal Women at increased risk for infection ??? talk with your healthcare provider 1 or more doses Pneumococcal conjugate vaccine (PCV13) and pneumococcal polysaccharide vaccine (PPSV23) Women at increased risk for infection ??? talk with your healthcare provider PCV13: 1 dose ages 19 to 65 (protects against 13 types of pneumococcal bacteria) PPSV23: 1 to 2 doses through age 64, or 1 dose at 65 or older (protects against 23 types of pneumococcal bacteria) Tetanus/diphtheria/pertussis (Td/Tdap) booster All women in this age group Td every 10 years, or a one-time dose of Tdap instead of a Td booster after age 18, then Td every 10 years Zoster All women ages 60 and older 1 dose Counseling Who needs it How often BRCA gene mutation testing for breast and ovarian cancer susceptibility Women with increased risk for having gene mutation When your risk is known Breast cancer and chemoprevention Women at high risk for breast cancer When your risk is known Diet and exercise Women who are overweight or obese When diagnosed, and then at routine exams Sexually transmitted infection prevention Women at increased risk for infection ??? talk with your healthcare provider At routine exams Use of daily aspirin Women ages 55 and up in this age group who are at risk for cardiovascular health problems such as stroke When your risk is known Use of tobacco and the health effects it can cause All women in this age group Every exam 1American [employer] Society ?? 4498-6399 [employer]. [address] [place] [address]. All rights reserved. This information is not intended as a substitute for professional medical care. Always follow your healthcare professional's instructions. Patient Care team information Care Team Personnel Name: Charlene Terrazas NP Position: [facility] PCO Associate Professional Member Role: PCP Address: Address: [address] [place] [address] Name: Shanel Rojas RN Position: S RN Member Role: Primary Care Nurse Name: Miri Marshall RN Position: [facility] OB RN Member Role: Primary Care Nurse Care Team Related Persons Name: SUNDAY STAFFORD Address: home [address] [place] [address] Name: VELASQUEZ MENDOZA Address: home [address] [place] [address] Name: CHRISTIE MALDONADO Address: home [address] [place] [address] Name: RICHARD MOLINA Address: home [address] [place] [address]
== END 2023-06-06 15:33 | disposition home or self-care (01) ==
PROVIDERS: Emergency Provider Emergency Medicine; PCP Nurse Practitioner Family
DX: S61.225A Laceration with foreign body of left ring finger without damage to nail, initial encounter (principal); X58.XXXA Exposure to other specified factors, initial encounter; Y93.9 Activity, unspecified; Y92.9 Unspecified place or not applicable; Y99.9 Unspecified external cause status; Z79.899 Other long term (current) drug therapy
CPT/HCPCS: 10120; 12001; 73140; 99282; 99283

== ENCOUNTER 2023-10-09 11:40 | Emergency (ER) | payer OTHER, SELFPAY ==
[2023-10-09 12:53] VITALS: BP 134/78; PULSE 73; RESP 20; TEMP 36.4; O2SAT 98; BMI 27.5
--- NOTE | 2023-10-09 12:57 | ED_ITS ---
HPI - Extremity Problem General Chief complaint: Extremity Injury, Upper Stated complaint: Shoulder injury @ work Time Seen by Provider: 10/09/23 13:36 Source: patient and RN notes reviewed Mode of arrival: ambulatory Limitations: no limitations History of Present Illness HPI Narrative: This is a 52-year-old female presenting to the ER with a complaint of right shoulder pain since today. Pt states that while she was at work today she is reaching upwards to grab a bag COVID gowns, when suddenly this bag fell onto her right shoulder. Patient reports that she felt as though her shoulder popped out of place. She states that she has had pain in her right shoulder, as well as her right scapular region. She describes the pain as a burning sensation. She reports that she has a history of a clavicular fracture many years ago, otherwise no other injury to her right shoulder. Denies any chest pain or shortness of breath. No other complaints or concerns at this time. MD Complaint: joint pain Onset (ago): day(s) Pain Consistency: constant Location: right and upper extremity Quality: burning Radiation: none Relieving factors: immobilization Exacerbating factors: range of motion and palpation Associated symptoms: denies other symptoms Related Data Previous Rx's Medication Instructions Recorded prednisone 5 mg tablet See Rx Instructions PO .COMPLEX 12/05/20 #36 tabs triamcinolone acetonide 0.025 % 1 appl topical BID #80 grams 12/05/20 topical ointment acetaminophen 500 mg tablet 500 mg PO Q6H PRN pain #30 tabs 10/09/23 (Tylenol Extra Strength) ibuprofen 600 mg tablet 600 mg PO Q6H PRN pain #30 tabs 10/09/23 lidocaine 5 % topical patch 1 patch topical DAILY #30 ea 10/09/23 (Lidoderm) Allergies Allergy/AdvReac Type Severity Reaction Status Date / Time quetiapine [From SEROQUEL] Allergy Severe ANAPHYLAXIS Verified 11/25/22 20:49 Review of Systems Review of Systems: Yes all other systems are reviewed and are negative Constitutional: Constitutional: Reports as per [facility] Past Medical History Attestation statement: The following information was validated with the patient. Onset Date is defined in the Problem List Problems that require an onset date and time if occurred within 24 hrs of arrival to the ED Aortic Dissection and Rupture; Neurologic impairment; Cardiopulmonary Arrest; Endotracheal Intubation; Insertion or Replacement of Mechanical Circulatory Assist Device Social History Social History Alcohol intake: current Alcohol intake frequency: a few times a week Advance Directives: No Physical Exam Vital Signs: Vital Signs: Last Vital Signs Temp 97.6 F 10/09/23 12:53 Pulse 73 10/09/23 12:53 Resp 20 10/09/23 12:53 BP 134/78 10/09/23 12:53 Pulse Ox 98 10/09/23 12:53 O2 Del Method Room Air 10/09/23 12:53 BMI result Body Mass Index 27.5 Const: General: cooperative, comfortable and no acute distress Orientati on/consciousness: patient oriented x3 Limitations: no limitations HEENT: Head: Yes normal to inspection, Yes normocephalic and Yes atraumatic Ears: hearing grossly normal bilaterally General nose exam: Normal external nose present Face and sinus: Yes normal facial exam Mouth: lip normal Eyes: General: appearance normal, both eyes and all related structures Eyelids: Yes eyelids normal Conjunctivae: conjunctivae normal Sclerae: sclerae normal Pupils: Equal, round and reactive pupils present EOM: EOMs intact bilaterally Neck: Other: No midline cervical spine tenderness. No paraspinous muscle tenderness Neck: Yes normal visual inspection, Yes full ROM and Yes no lymphadenopathy Chest: Chest palpation & inspection: normal inspection of the chest Resp: Effort & Inspection: normal respiratory effort and able to speak in complete sentences Cardio: Rate: regular rate GI: Inspection: Yes normal to inspection Skin: General skin exam: no rashes or lesions noted Trauma: no lacerations or abrasions Wounds: no wounds Neuro: General: patient oriented x3 and moves all extremities Cranial nerves: Yes Equal, round and reactive pupils present Extrem: Other: Right shoulder: No bony abnormalities or swelling. No overlying skin changes, ecchymosis or warmth. Patient has tenderness to palpation along the posterior aspect of the right shoulder. Forward flexion to about 40? as well as lateral raise to about 50?. Radial pulse 2 +. No tenderness along the bicipital groove. General: Yes normal to inspection Right upper extremity: normal to inspection Left upper extremity: normal to inspection Right lower extremity: normal to inspection Left lower extremity: normal to inspection Course Course Course Narrative: 52-year-old female presents to ED for right shoulder pain. Patient states she was lifting object in the object hit her right shoulder and feels like it shoulder moved back. Patient states history of fracture and shoulder in the past. Neurovascular exam intact. Motor exam is limited due to pain but intact. X-ray ordered. Medications Administered Discontinued Medications Generic Name Dose Route Start Last Admin Trade Name Maddie PRN Reason Stop Dose Admin Lidocaine 1 patch 10/09/23 14:27 10/09/23 14:52 Lidocaine 4 % Patch Adh..Patch TRANSDERMA 10/09/23 14:28 1 patch ONCE ONE Administration Protocol Medical Decision Making Medical Decision Making MDM Narrative: This is a 52-year-old female presenting to the emergency department with complaints of right shoulder pain status post work related injury which occurred today. On arrival, vital signs within normal limits. Right shoulder with tenderness palpation along the posterior aspect, concerning for muscle strain. There was an x-ray that was performed, no acute fracture seen. Limited range of motion secondary to pain. She was given ibuprofen prior to my assessment and she states that this has provided her with good relief. Discussed workup with patient, symptoms likely due to shoulder strain however unable to rule out ligamentous injury. Advised to rest, ice, gentle range of motion and massage. Discharge with Lidoderm patches, ibuprofen and Tylenol. Also given orthopedic referral if her symptoms persist. Patient understands and agrees with plan. She is given return precautions. Patient stable for discharge Differential Diagnosis Differential Diagnoses: The differential diagnosis associated with the presentation includes Contusion, dislocation, sprain, strain Radiology Impression Discussion of test interpretation with radiology: I have reviewed the radiologist's reading. Radiologist Impression: EXAMINATION: XR SHOULDER, RIGHT CLINICAL INFORMATION: Right shoulder pain with question of dislocation COMPARISON: 04/27/2014 TECHNIQUE: AP external rotation, Grashey, scapular Y, and axillary views of the right shoulder. FINDINGS: The bones and soft tissues are unremarkable aside from the presence of some ossification adjacent to the clavicular head and along the coracoclavicular ligament, unchanged from prior. There is no shoulder dislocation. No fracture. Glenohumeral and acromioclavicular alignment is anatomic with normal joint space. No abnormal rotator cuff calcifications. XR/XR shoulder RT min 2V IMPRESSION: No evidence of dislocation or acute fracture. Dictated By: Alan Mazariegos MD Discharge Plan Discharge Clinical Impression: Strain of shoulder, right Patient Disposition: Home, Self-Care Instructions: Muscle Strain (ED), Cold Compress or Soak (ED) Additional Instructions: You were seen in the emergency department due to right shoulder pain. Your x-ray did not show any broken bones. Alternate between ibuprofen and Tylenol as needed for pain and symptoms. I am also giving a prescription for Lidoderm patches, apply to the area as needed for pain. Rest, ice, gentle range of motion, and massage can help with your symptoms. You may switch to heat after 48 hours. If you continue to have pain in your right shoulder after 1-2 weeks, you may follow-up with Orthopedics, call to make an appointment. If any new or worsening symptoms occur including but not limited to worsening pain, fevers, chills, chest pain or shortness breath, please return for re- evaluation. Prescriptions: New lidocaine [Lidoderm] 5 % adhesive patch,medicated 1 patch topical DAILY Qty: 30 0RF Rx Instructions: leave on most painful area for up to 12 hrs ibuprofen 600 mg tablet 600 mg PO Q6H PRN (Reason: pain) Qty: 30 0RF acetaminophen [Tylenol Extra Strength] 500 mg tablet 500 mg PO Q6H PRN (Reason: pain) Qty: 30 0RF No Action triamcinolone acetonide 0.025 % ointment 1 appl topical BID Qty: 80 0RF prednisone 5 mg tablet See Rx Instructions .ROUTE .COMPLEX Qty: 36 0RF Rx Instructions: prednisone 5 mg: take 8 tablets (40 mg) on Day 1; 7 tablets (35 mg) on Day 2; then decrease by 1 tablet every day until finished Referrals: [facility] [place] Orthopedic Surgeons [Provider Group] Stand Alone Forms: Work/School Release Interventions: ED Discharge Assessment Last Done: 10/09/23 14:57 Discharge Date/Time: 10/09/23 14:57
== END 2023-10-09 14:57 | disposition home or self-care (01) ==
PROVIDERS: Emergency Provider Student in an Organized Health Care Education/Training Program; PCP Nurse Practitioner Family
DX: S46.911A Strain of unspecified muscle, fascia and tendon at shoulder and upper arm level, right arm, initial encounter (principal); W20.8XXA Other cause of strike by thrown, projected or falling object, initial encounter; Y93.89 Activity, other specified; Y92.238 Other place in hospital as the place of occurrence of the external cause; Y99.0 Civilian activity done for income or pay
CPT/HCPCS: 73030; 99282; 99283